=== PATIENT | female | born 1990 | race Caucasian/White ===

== ENCOUNTER 2023-05-14 08:16 | Outpatient (CLI) | payer OTHER, SELFPAY | END 2023-05-14 08:17 | disposition home or self-care (01) | LOC: NFLDREF 05-16 12:57 | PROVIDERS: Visit Provider Obstetrics & Gynecology | DX: N80.9 Endometriosis, unspecified (principal); R10.2 Pelvic and perineal pain; R39.9 Unspecified symptoms and signs involving the genitourinary system; G89.29 Other chronic pain | CPT/HCPCS: 80053; 87086 ==

== ENCOUNTER 2023-05-21 15:49 | Outpatient (CLI) | payer OTHER, SELFPAY | END 2023-05-21 15:50 | disposition home or self-care (01) | PROVIDERS: PCP Nurse Practitioner Family; Visit Provider Nurse Practitioner Family | DX: Z00.00 Encounter for general adult medical examination without abnormal findings (principal); E11.9 Type 2 diabetes mellitus without complications; R74.8 Abnormal levels of other serum enzymes; R10.12 Left upper quadrant pain | CPT/HCPCS: 82150; 83690 ==

== ENCOUNTER 2023-06-22 15:44 | Outpatient (CLI) | payer OTHER, SELFPAY ==
--- NOTE | 2023-06-22 16:00 | CRLHL7_ITS ---
For Patients: As a result of the Century Cures Act, medical imaging exams and procedure reports are released immediately into your electronic medical record. You may view this report before your referring provider. If you have questions, please contact your health care provider. CLINICAL HISTORY: PELVIC AND PERINEAL PAIN TECHNIQUE: 2D de los santos scale ultrasound. In addition color Doppler and spectral Doppler analysis was performed of the pelvis using a transabdominal and transvaginal approach. Comparison MRI 01/18/2023 FINDINGS: On transvaginal imaging, the myometrium has a normal uniform echotexture. The uterus measures 8.3 x 4.3 x 5.5 cm. The endometrial lining measures 9 mm in thickness. The right ovary measures 3.4 x 3.8 x 3.9 cm in size and the left ovary measures 6.5 x 4.6 x 4.1 cm. The ovaries demonstrate normal arterial and venous blood flow on color Doppler and spectral Doppler analysis. There is a near completely anechoic left ovarian cyst measuring 4.7 x 3.3 x 3.6 cm, corresponding to the T2 hyperintense cyst on MRI. A faint curvilinear thin septation is again noted. There is also a circumscribed anechoic right ovarian cyst measuring 2.5 x 3.2 x 3.2 cm, new from the prior study. The adnexal lesion be low and anterior to the left ovary is not appreciated on ultrasound. IMPRESSION: The previously noted T1 isointense left adnexal mass with incomplete fat suppression is not visualized on sonogram. Stable benign left ovarian cyst containing a thin peripheral internal septation measuring 4.7 cm. There is a new benign simple right ovarian cyst measuring 3.2 cm. No ovarian torsion or excess pelvic free fluid. Dictated by Cj Melgar MD @ 06/25/2023 9:03:11 AM (Electronically Signed)
== END 2023-06-22 15:45 | disposition home or self-care (01) ==
LOC: US 15:45
PROVIDERS: PCP Nurse Practitioner Family; Visit Provider Obstetrics & Gynecology
DX: R10.2 Pelvic and perineal pain (principal); N83.202 Unspecified ovarian cyst, left side; N83.201 Unspecified ovarian cyst, right side; G89.29 Other chronic pain
CPT/HCPCS: 76830; 76856; 93976

== ENCOUNTER 2023-06-26 15:20 | Outpatient (CLI) | payer OTHER, SELFPAY | END 2023-06-26 15:21 | disposition home or self-care (01) | PROVIDERS: PCP Nurse Practitioner Family; Visit Provider Obstetrics & Gynecology | DX: R74.8 Abnormal levels of other serum enzymes (principal); E11.9 Type 2 diabetes mellitus without complications; N89.8 Other specified noninflammatory disorders of vagina; R07.9 Chest pain, unspecified | CPT/HCPCS: 80053; 80061; 82043; 82570; 84443 ==

== ENCOUNTER 2023-06-29 08:49 | Outpatient (CLI) | payer OTHER, SELFPAY | END 2023-06-29 08:50 | disposition home or self-care (01) | LOC: KYNREF 08:51 | PROVIDERS: PCP Nurse Practitioner Family; Visit Provider Nurse Practitioner Family | DX: R74.8 Abnormal levels of other serum enzymes (principal); R07.89 Other chest pain | CPT/HCPCS: 84484 ==

== ENCOUNTER 2023-07-13 07:17 | Outpatient (CLI) | payer OTHER, SELFPAY ==
--- NOTE | 2023-07-13 07:15 | CRLHL7_ITS ---
For Patients: As a result of the Century Cures Act, medical imaging exams and procedure reports are released immediately into your electronic medical record. You may view this report before your referring provider. If you have questions, please contact your health care provider. INDICATION: Elevated liver enzymes. COMPARISON: None available. TECHNIQUE: Ultrasound examination of the right upper quadrant was performed. FINDINGS: The gallbladder is absent consistent with the history of cholecystectomy. The common bile duct is top normal in caliber at 8 mm. The pancreatic head and body were examined, and these are normal in appearance. The abdominal aorta and visualized portions of the inferior vena cava are normal in appearance. The liver shows no sign of mass or contour abnormality, and there is no sign of ascites. There is antegrade flow in the main portal vein. There is increased hepatic echogenicity consistent with fatty infiltration of the liver. The right kidney is unremarkable. IMPRESSION: Fatty infiltration of the liver with no sign of any mass. Common bile duct top normal in caliber. Absence of the gallbladder consistent with cholecystectomy. Dictated by Josh Willis MD @ 07/17/2023 12:02:08 PM (Electronically Signed)
== END 2023-07-13 07:18 | disposition home or self-care (01) ==
LOC: US 07:18
PROVIDERS: PCP Nurse Practitioner Family; Visit Provider Nurse Practitioner Family
DX: R74.8 Abnormal levels of other serum enzymes (principal); K76.0 Fatty (change of) liver, not elsewhere classified
CPT/HCPCS: 76705

== ENCOUNTER 2024-05-01 13:51 | Outpatient (CLI) | payer MEDICAID, SELFPAY ==
--- OUTSIDE RECORDS SUMMARY | 2024-05-01 13:54 | XMS_ITS | Data Portability ---
Author Organization LM - [facility] Address [address] [place] [address] [place] [address] Assessment No assessment recorded. Plan of Treatment Reminders Order Date Submit Date Provider Last Modified By Organization Details Last Modified Time Details Appointments None recorded. Lab CBC w/ diff 2019 [facility], [address] [place] [address], [phone], 0 14:11:12 HbA1c (hemoglobi n A1c), blood 2019 [facility], [address] [place] [address], [address], 0 17:33:09 TSH, serum, reflex free T4 2019 [facility], [address] [place] [address], [address], 0 14:11:12 pap, LB + reflex to HR HPV if ASC-U 2019 [facility], [address] [place] [address], [address], 0 15:57:24 CT + NG + TV, DNA, urine/swab - vaginal swab 2019 [facility], [address] [place] [address], [address], 0 10:46:21 wet mount, vaginal 2019 [place] [facility], [address] [place], [place] [address], [address], 0 15:31:48 urinalysis , dipstick, auto 2021 [email or web address] [place] [facility], [address] [place] [address] [place], [address], 2 10:53:40 urinalysis complete, reflex culture 2021 [facility] [address] [place] [address] [place], [address], 2 16:06:10 Referral care coordinati on referral 2019 [email or web address] Not available 0 18:20:36 medical case worker/ca re coordinato r referral - Pt has agreed to follow through with advocacy appt to be reconsider ed for [place] sure. She thinks she has the right paperwork 2021 [email or web address] Not available 2 10:50:19 mental health clinic referral 2021 [email or web address] Not available 2 16:39:37 Procedures None recorded. Surgeries None recorded. Imaging US, pelvis, complete 2019 LILIA[place] Not available 0 10:45:26 Medication Orders naproxen 500 mg tablet,del ayed release 2019 [facility] [place], [address], [place], [address], 1 11:45:11 omeprazole 20 mg capsule,de layed release 2020 021 [facility] [place], [address], [place], [address], 11:56:19 fluconazol e 150 mg tablet 2021 [facility] Julianne [place], [address], [place], [address], 14:22:43 Fiber (psyllium husk-sugar ) 3.4 gram/7 gram oral powder 2021 [facility] Eugeniar [place], [address], [place], [address], 12:18:28 sulfametho xazole 800 mg-trimeth oprim 160 mg tablet 2021 [facility] Julianne Mac, [address], [place], [address], 12:17:54 Patient TargetsNo targets recorded. Patient InstructionsNo instructions recorded. Reason for Referral Care Coordination Referral f or Dysmenorrhea APC application OR insurance navigator if eligible - needs to see gynecology pending APC approval Referring Physician: [facility], Encounter Date: 05/26/2020 Screening Specialist And Gynecologis t Referral for Complex cyst of uterine adnexa Left adnexal cyst increasing in size. Chronic pelvic pain. Referring Physician: [facility], Encounter Date: 06/09/2020 Demand Planner/care Coordinato r Referral for Chronic pelvic pain of female Pt has agreed to follow through with advocacy appt to be reconsidered for [place] sure. She thinks she has the right paperwork Referring Physician: [facility]yada [facility], Encounter Date: 08/01/2022 Mental Health Clinic Referra l for Difficulty coping Referring Physician: Zayda [facility], Encounter Date: 08/01/2022 Results Created Date Observation Date Name Description Value Unit Range Abnormal Flag Note LastModifiedBy Organization Detail LastModifiedTime 06/02/20 06/02/2020 TSH, serum , refle x free T4 WBC 8.9 Not Available Not Availa ble 06/03/2020 14:11:12 06/02/20 20 06/02/2020 TSH, serum , refle x free T4 HGB 13.0 Not Available Not Availa ble 06/03/2020 14:11:12 06/02/20 20 06/02/2020 TSH, serum , refle x free T4 platelet count 286 Not Available Not Available 05/14 14:11:12 06/02/20 20 06/02/2020 TSH, serum , refle x free T4 TSH 1.20 Not Available Not Availa ble 06/03/2020 14:11:12 06/02/20 20 06/02/2020 CBC w/ diff WBC 8.9 Not Available Not Availa ble 06/03/2020 13:18:28 06/02/20 20 06/02/2020 CBC w/ diff HGB 13.0 Not Available Not Availa ble 06/03/2020 13:18:28 06/02/20 20 06/02/2020 CBC w/ diff platelet count 286 Not Available Not Available 05/14 13:18:28 06/02/20 20 06/02/2020 CBC w/ diff TSH 1.20 Not Available Not Availa ble 06/03/2020 13:18:28 06/02/20 20 06/02/2020 HbA1c (hemo globi n A1c), blood A1C 5.8 % <=6.4 Not Available [place] [facility] [address] [place], [address], 06/04/2020 09:10:37 06/07/2006/03/2020 US, pelvi s, compl ete No observ ation record ed. Not Available 2019 17:21:56 Result Notes None recorded. Problems Name Problem SNOMED Code Status Onset Date Resolution Date Notes Provider Name and Address Organization Details Recorded Time Hemorrhoids 27936287 Active 2021 for 3 years ZAYDA SWANSON, ANP-BC [address] [facility] [place], [address], [facility] [facility] 2 17:12:16 Endometriosis of uterus 91494241 Active 2019 Lydia Hua NP [address] [place], [address], [place] [employer] [facility] 0 15:55:08 Dysmenorrhea 790861972 Active 2019 [facility] [address] [place] [address], [address], [facility] 2 17:13:05 Migraine with aura 7846078 Active 2019 [place] [address] [place] [address], [address], [place] [employer] [facility] 0 16:14:23 Cyst of ovary 14081337 Active 2019 YVON PINEDA [address] [place] [address], [address], [facility] 2 17:12:21 Obesity 354725094 Active 2019 [place] [address] [place] [address], [address], [facility] 0 16:14:36 Problem Notes None recorded. Procedures Surgical History Date Name Laterality Status Provider Name and Address Organization Details Recorded Time 05/15/20 16 Date of Last [place] [address] [place] [address], [address], [facility] [employer] [employer] 05/26/2020 15:58:27 [place] [address] [place] [address], [address], [place] [facility] 05/26/2020 15:57:30 Imaging Results Imaging Date Name Status LastModified by Organiz ation Details LastModified Time 06/03/2020 US, pelvis, complete completed Information not available 06/09/2020 17:21:56 Procedure Notes None recorded. Medical Equipment None Reported. Allergies Allergen ID Allergen Name Allergen Category Reaction Reaction Severity Criticality Documentation Date Start Date Code Code System Note Provider Name and Address Organization Details Recorded Time 242 Product containin g estrogen receptor agonist (product) medicatio n Not available Not available Not available 05/26/2020 34241 003 SNOMED contr aindi cated due to migra ine with katharina Hua, OUTPATIENT CASE MANAGER [address] [place], [address], [facility] - [facility] 0 15:54:19 Medications Name Sig Start Date Stop Date Status Note LastModified by Organization Details LastModified Time fluconazole 150 mg tablet TAKE 1 TABLET BY MOUTH DAILY FOR 1 DAY active Not Available Not Available No t Available prednisone 20 mg tablet TAKE 2 TABLET BY MOUTH ONCE DAILY WITH A MEAL FOR 5 DAYS. active Not Available Not Available No t Available sulfamethox azole 800 mg-trimetho prim 160 mg tablet TAKE 1 TABLET BY MOUTH TWO TIMES A DAY active Not Available Not Available No t Available meloxicam 7.5 mg tablet TAKE 1 TABLET BY MOUTH ONCE DAILY FOR PERIOD PAIN active Not Available Not Available No t Available naproxen 500 mg tablet,kendra yed release Take 1 tablet twice a day by oral route as needed. 02/23 completed Not Available Not Available Not Available ibuprofen 200 mg tablet Take 1 tablet every 6 hours by oral route. 02/23 completed Not Available Not Available Not Available omeprazole 20 mg capsule,del ayed release TAKE 1 CAPSULE BY MOUTH ONCE DAILY active Not Available Not Available No t Available cefdinir 300 mg capsule TAKE 1 CAPSULE BY MOUTH TWICE DAILY BEFORE BREAKFAST AND BEFORE SUPPER FOR 7 DAYS active Not Available Not Available No t Available Natural Fiber Laxative (sugar) oral powder TAKE 1 TEASPOONF UL MIXED IN 8OZ. OF FLUID AND DRINK BY MOUTH EVERY DAY active Not Available Not Available No t Available escitalopra m 10 mg tablet TAKE 1 TABLET BY MOUTH ONCE DAILY active Not Available Not Available No t Available Nexplanon 2017 active Not Available Not Available Not Avai lable Fiber (psyllium husk-sugar) 3.4 gram/7 gram oral powder Take 1 tsp every day by oral route. 2021 active Not Available Not Available Not Avai lable Vitals Date Recorded Heart rate Body height Body mass index (BMI) Body weight Systolic blood pressure Diastolic blood pressure Provider Name and Address Organization Details Last Updated DateTime 0 73 /min 162.56 cm 35.2 kg/m2 27269.4 4 g 114 mm[Hg] 78 mm[Hg] Lydia Hua, KELSI [address] [place], [address], [facility] [employer] [facility] 0 16:05:12 Date Recorded Body height Body mass index (BMI) Body weight Heart rate Systolic blood pressure Diastolic blood pressure Provider Name and Address Organization Details Last Updated DateTime 0 162.56 cm 34.3 kg/m2 29304.4 7 g 69 /min 124 mm[Hg] 70 mm[Hg] Lydia Hua, KELSI [address] [place], [address], [facility] [employer] [facility] 0 14:19:35 Date Recorded Body height Provider Name an d Address Organization Details Last Updated DateTime 02/23/2021 162.56 cm Lydia Hua, KELSI [address] [place], [address], [facility] [employer] [facility] 02/23/2021 11:45:15 Social History Question Answer Notes LastModified by Organizat ion Details LastModified Time Tobacco Smoking Status Never Smoker Not Available [employer] 06/15/2020 03:52:54 What Is Your Level Of Alcohol Consumption? None [id number] Information not available 06/15/2020 Are You Currently Employed? Yes [id number] Information not available 06/15/2020 What Is Your Occupation? [employer] [id number] Information not available 06/15/2020 Live Alone Or With Others? With Others Lives With Kids And Information not available 05/26/2020 How Many Children Do You Have? 5 [id number] Information not available 06/15/2020 Are You Sexually Active? No [id number] Information not available 06/15/2020 Sex: Unknown Functional Status Question Answer Note LastModified by Organization D etails LastModified Time Are you able to care for yourself? Yes [id number] Information n ot available 06/15/2020 Mental Status None recorded. Family History Relationship Description Onset Age of this Age Resolved Age Notes LastModified by Organization Details LastModified Time Mother Prediabetes Not availa ble 05/26/2020 15:55:46 Maternal Grandfather Squamous cell carcinoma Not available 2019 15:56:03 Medical History No medical history recorded. Gynecological History Statement/Question Response Abnormal Pap Y Flow Heavy Date of LMP 08/01/2022 On BCP's at Conception? N STIs/STDs N Duration of Flow (days) 14 Current Control Method Implant Frequency of Cycle (Q days) Sexually Active? N Menses Monthly N Date of Last Pap Smear 05/15/2016 Sexual Problems? Y LMP Definite Obstetrics History GPAL:G 5 P 0 0 0 5 Type Value Living 5 Total 5 Past Encounters Encounter ID Performer Location Encounter Start Date Encounter Closed Date Diagnosis/Indication Diagnosis SNOMED-CT Code Diagnosis ICD10 Code [id number] Lydia Hua NP [facility] [address] [place] [address] 05/26/2020 15:32:39 05/26/2020 16:37:44 Dysmenorrhea 987656211 N94.6 Body mass index 30+ - obesity 377054946 Z68.35 Abnormal c ervical Papanicolaou smear 707116828 R87.619 Endometrio sis of pelvis 78823652 N80.3 [id number] Lydia Hua NP [facility] [address] [place] [address] 06/02/2020 14:01:00 06/02/2020 16:06:52 Dysmenorrhea 675804906 N94.6 Abnormal c ervical Papanicolaou smear 458794796 R87.619 [id number] Lydia Hua NP [facility] [address] [place] [address] 02/23/2021 11:10:32 02/23/2021 16:27:50 Nonulcer dyspepsia 9222382 K30 Dysmenorrhea 970140817 N 94.6 [id number] ZAYDA SWANSON, ANP-BC [facility] [address] [facility] [address] [place] [address] 07/27/2022 14:10:00 07/28/2022 10:49:27 Candidiasis of vagina 65759968 B37.31 Dysuria 30911670 R30.0 Chronic pe lvic pain of female 064616721 R10.2 [id number] RACHEL PINEDA-[facility] [address] [facility] [place] [address] 08/01/2022 16:49:00 08/01/2022 17:36:23 Chronic pelvic pain of female 277394841 R10.2 Candidiasis of vagina 72 342457 B37.31 Acute urin anabelle tract infection 529659358 N39.0 Constipation 72768431 K5 9.00 Difficulty coping 561929 00 Z73.89 Health Concerns Section Related Observation LastModified by Organization Detai ls LastModified Time None Recorded Concern Status LastModified by Organization Details LastModified Time None Recorded Advance Directives Directive None Recorded Payers Encounter Date Sequence Insurance Name Policy Number Policy Mueller Covered Member ID Mueller Member ID Guarantor Name 05/26/2020 SLIDING FEE SCHEDULE - DISCOUNT Annydaysy Pisano 06/02/2020 SLIDING FEE SCHEDULE - DISCOUNT Annydaysy Pisano 02/23/2021 SLIDING FEE SCHEDULE - DISCOUNT Annydaysy Pisano 07/27/2022 SLIDING FEE SCHEDULE - DISCOUNT Annydaysy Pisano 08/01/2022 SLIDING FEE SCHEDULE - DISCOUNT Annydaysy Pisano Notes Date Note Type Note Provider Name and Address Organization Details Recorded Time 05/26/2020 text/html HPI Notes: 29 y. o. F presents due to pelvic pain with menses Reports always having painful periods Diagnosed with endometriosis 2012 at [facility], but no definitive surgical diagnosis at that time Patient has tried multiple contraceptive treatments, but unable to take estrogen-containing methods due to migraines with aura Has used Nexplanon x 2.5 years with good affect up until a few months ago when her painful/heavy periods returned Gained weight with Depo, IUD exacerbated pain Reports that now her periods are long, painful, and heavy Additionally, she reports constipation, dizziness with severe pain, pain with sex, and that the pain radiates down the front of her thighs Uses Ibuprofen, which does not help the pain very much Denies vaginal discharge, itching, odor, irritation, risk of STIs, fever, chills Lydia Hua, KELSI [address] [place], [address], [place] [facility] 05/26/2020 17:22:34 06/02/2020 text/html HPI Notes: 29 y. o. F presents in follow up. Seen 1 week ago for longstanding history of dysmenorrhea and previous diagnosis of endometriosis. Unable to perform exam last week. Presents for exam. Reports previous pap smear 2016 abnormal. Unable to find exact result. Plan to repeat today. No changes since last week Nexplanon for contraception Bad pain yesterday and beginning to spot Lydia Hua NP [address] [place], [address], [facility] [employer] [facility] 06/02/2020 15:33:15 02/23/2021 text/html HPI Notes: 30 y. o. F Evaluated via phone due to pain in her lower rib and middle of my stomach, early satiety with 15-lb weight loss, nausea, vomiting x 2, dizziness starting 3 weeks ago These symptoms only occur after eating Bowel movements have been normal Denies blood in vomit or stool, dysuria, fever, chills Continues with previously-evaluate d dysmenorrhea but worsening now. Previously she was referred to loom winder tender and surgical consult but preferred to apply for insurance before pursuing this referral. Would like to apply for insurance again and see loom winder tender. Lydia Hua NP [address] [place], [address], [facility] [employer] [facility] 02/23/2021 12:36:44 07/27/2022 text/html HPI Notes: Pt called on phone d/t inability to see in-person. Ethiopian-speaking. She notes thicker, white curd-like vaginal discharge, increased over usual with itching and burnign. Not currently having sex, but when she last did, it was painful. Has had both urine and yeast infections before, but it has been a long time. +intermenstrual spotting, pink urine with associated odor +sig menstrual cramps and pelvic pain for years R>L Denies currently vaginal lesions, but sometimes will note smoothe, flesh-colored lesions. Pelvic u/s showed Left adnexal cyst growth and thickend wall 06/04/20. Surgical consult recommended. She denies ever seeing Dr. Thomason, [facility]. She did see a [facility] provider 12/2021, but I am unable to view notes. Diagnosis was noted to be endometriosis, but in 2019 endometrium was unremarkable at 2mm. It is possible that there has been a change not reflected in 2020 imaging. She says she was told at Last [facility] visit that nothing could be done other than meds, which have been unhelpful. Meloxicam and nearly ever bc method has been tried (oral, patch, mirena IUD). Nexplanon was initially helpful, but not currently. 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 She RACHEL PINEDA- [address] [place], [address], [place] [employer] [facility] 07/27/2022 14:15:17 08/01/2022 text/html HPI Notes: Ethiopian-speaking, accompanied by . Pt presents for folow-up of vaginal c/o, dysuria, and pelvic pain. Vaginal sx resolved with fluconazole ocmpletely. UC showed >50,000 E coli. Awaiting records from [facility] consult. No sx of complicated UTI such as feverl, flank pain, or chills. No recent antibiotic use. Also notes rectal pain. Dull pain. With period. +constipation and alternates with diarrhea. JARVIS PINEDA [address] [place], [address], [place] [employer] [facility] 08/01/2022 17:40:15 OBGyn Episode No OBEpisode recorded.
--- OUTSIDE RECORDS SUMMARY | 2024-05-01 13:54 | XMS_ITS | Clinical Summary ---
Author Organization [facility] Address [place], [place] [address] Care Team Providers Care Front Edger Name Role Phone Pcp, No Primary Care Provider UnavailEliud Flowers Unavailable [phone] Nonstaff, Doctor Unavailable Unavailable Allergies No known active allergies Medications Medication Sig Dispensed Refills Start Date End Date Status ibuprofen (ADVIL; MOTRIN) 200 mg tablet Take 200 mg by mouth every 6 hours if needed for Pain. Active alcohol swabs Use as needed for diabetes control 11/17/2022 Active blood glucose ctl high,nml,low soln Glucose control solution provides an easy way to ensure accurate blood glucose testing. 11/17/2022 Active Blood-Glucose Meter Test as directed for diabetes control. 11/17/2022 Active metFORMIN (GLUCOPHAGE XR) 500 mg Extended-Release tablet Take 1,000 mg by mouth two times daily. 02/12/2024 Active glipiZIDE (GLUCOTROL) 5 mg tablet Take 5 mg by mouth two times daily. Active Ventolin HFA 90 mcg/actuation inhaler Inhale 1-2 Puffs by mouth every 6 hours if needed. 02/12/2024 Active escitalopram oxalate (LEXAPRO) 10 mg tabletIndications:Ma tay depressive disorder, single episode, moderate (HC) Take 1 Tablet (10 mg) by mouth once daily in the morning. 30 Tablet 02/28/2024 Active traZODone (DESYREL) 50 mg tabletIndications:Ma tay depressive disorder, single episode, moderate (HC) Take 1 Tablet (50 mg) by mouth at bedtime. 31 Tablet 02/27/2024 Active Active Problems Problem Noted Date Diagnosed Date Major depressive disorder, single episode, moder ate 02/26/2024 Asthma 02/25/2024 Type 2 diabetes mellitus, wi thout long-term current use of insulin 02/25/2024 Depression 02/25/2024 Suicidal ideation 02/25/2024 Endometriosis 12/08/2022 35 weeks gestation of 10/26/2016 Obesity (BMI 30.0-34.9) 10/26/2016 Gastroesophageal reflux disease without esophagi tis 10/26/2016 Grand multiparity 10/26/2016 Constipation 12/02/2015 Myopia of both eyes 08/18/2015 Regular astigmatism of both eyes 08/18/2015 Estimated Date of Delivery Comme nts Yes 12/08/2024 Resolved Problems Problem Noted Date Diagnosed Date Resolved Date 37 weeks gestation of 12/02/2015 10/26/2016 Encounters Date Type Department Care Team Description 04/28/2024 5:21 AM CDT - 04/28/2024 8:12 AM CDT Emergency [address] [address] Anthony Suero MD Peterson, Christopher Roy, MD Abdominal pain affecting (Primary Dx); Subchorionic hematoma in first trimester, single or unspecified fetus; Ovarian cyst affecting in first trimester, antepartum Discharge Disposition: Home Self Care 04/28/2024 Travel 02/25/2024 5:48 PM CDT - 02/27/2024 4:00 PM CDT Hospital Encounter [address] [address] jC Senior MD Major depressive disorder, single episode, moderate (HC) (Primary Dx) Discharge Disposition: Home Self Care 02/25/2024 12:22 AM CDT - 02/25/2024 5:42 PM CDT Emergency [address] [address] Brandon Dias MD Swenson, Nathan Dean, MD Depression, unspecified depression type (Primary Dx); Suicidal ideation Discharge Disposition: Short Term/PPS Hosp 02/25/2024 Travel from Last 3 Months Immunizations Name Administration Dates Next Due COVID-19 vaccine (ICEXBio NTech 30mcg/0.3mL) PF, MDV 09/14/2021,07/20/2021 DTaP 03/21/2000,09/21/1999,08/18/1999 Hepatitis B (Peds) 03/21/2000,09/21/1999, 000 Human Papilloma Virus Vaccine 12/03/2014 ,06/05/2014,01/08/2013,2007 Influenza Virus, Unspecified 07/28/2016, 07/14/2015,06/05/2014,2012,06/21/2010 Influenza, IIV3 (Age >=3 years) 08/16/2012,08/26 Influenza, IIV4 06/10/2019,07/28/2016 Influenza, IIV4 (=>6mos) MDV 05/27/2020,07/14/20 15 MMR 09/21/1999,08/18/1999 Polio Virus, Unspecified 03/21/2000,09/21/1999,0 08/18/1999 Tdap 07/28/2016, 6,08/12/2014,2007 Tetanus Toxoid 01/30/2008 Tuberculin (PPD) 08/12/2019 Varicella Vaccine 12/03/2015 Family History Medical History Relation Name Comments No Known Problems Daughter 1 No Known Problems Daughter 2 No Known Problems Daughter 3 Migraines Mother No Known Problems Son 1 No Known Problems Son 2 Relation Name Status Comments Daughter 1 Alive Daughter 2 Alive Daughter 3 Alive Mother Alive Son 1 Alive Son 2 Alive Social History Tobacco Use Types Packs/Day Years Used Date Smoking Tobacco: Never Smokeless Tobacco: Never Tobacco Cessation:Counseling Given: Yes Alcohol Use Standard Drinks/Week Comments Yes 0 (1 standard drink = 0.6 oz pure alcohol) quart of tequila every other weekend PHQ-2 Answer Date Recorded PHQ-2 TOTAL SCORE 1 02/27/2024 Social Connections Answer Date Recorded Frequency of Communication with Friends and Fami ly 4 02/25/2024 Alcohol Use Answer Date Recorded How often do you have a drink containing alcohol ? 2 02/25/2024 How many drinks containing a lcohol do you have on a typical day when you are drinking? 4 02/25/2024 How often do you have five or more drinks on one occasion? 3 02/25/2024 Financial Resource Strain Answer Date R ecorded Difficulty of Paying Living Expenses 2 02/25/2024 Difficulty of Paying Living Expenses 1 02/25/2024 Food Insecurity Answer Date Recorded Worried About Running Out of Food in the Last Ye ar 2 02/25/2024 Transportation Needs Answer Date Record ed Lack of Transportation (Medical) 1 02/25/2024 Housing Stability Answer Date Recorded Unable to Pay for Housing in the Last Year 1 02/25/2024 Estimated Date of Delivery Comme nts Yes 12/08/2024 Sex and Gender Information Value Date Recorded Sex Assigned at Not on file Gender Identity Not on file Sexual Orientation Not on file Obstetrics History Para Term AB IAB SAB Ectopic Multiple Livin g Live Births 6 5 4 1 0 0 0 0 0 5 5 Date Outcome GA Total Labor Labor//3rd Weight Sex Type Anes PTL Vicky A1 A5 Name Clin 2007 Term 40w 0d 3.69 kg (8 lb 2 oz) F Vag N Livin g 2010 Term 40w 0d 3.23 kg (7 lb 2 oz) F Vag N Livin g 2012 Term 39w 0d 3.66 kg (8 lb 1 oz) M Vag N Livin g 2015 Term 37w 5d 3.32 kg (7 lb 5 oz) M Vag None Livin g 9 9 Complications:None Delivery Location:[facility] 2016 35w 6d 2.92 kg (6 lb 7 oz) F Vag None Livin g 9 10 GORDON BARRY ,BG ALVERTO Coyle Delivery Location:[facility] [place] Current Last Filed Vital Signs Vital Sign Reading Time Taken Comments Blood Pressure 103/65 04/28/2024 6:06 AM CDT Pulse 52 04/28/2024 6:06 AM CDT Temperature 36.5 ??C (97.7 ??F) 04/28/2024 5:21 AM CD T Respiratory Rate 20 04/28/2024 5:21 AM CDT Oxygen Saturation 97% 04/28/2024 6:06 AM CDT Inhaled Oxygen Concentration - - Weight 86.2 kg (190 lb) 04/28/2024 5:21 AM CDT Height 165.1 cm (5' 5) 04/28/2024 5:21 AM CDT Body Mass Index 31.62 04/28/2024 5:21 AM CDT Plan of Treatment Health Maintenance Due Date Last Done Comments Pneumococcal series for age 6-64 (1 of 2 - PCV) 1996 HIV for age 15-65 2005 Hepatitis C screening for ag e 18-79 2008 BMI (ht and wt on same day) for age 18+ 09/18/2017 09/18/2016 Pap test for age 21-65 06/02/2023 06/02/2020, 2019 COVID-19 vaccine series ( season) 2024 09/14/2021, 07/20/2021 Influenza for age 9-49 04/13/2024 , 06/10/2019, 07/28/2016, Additional history exists Depression screening for age 12+ 02/26/2025 02/27/20 24, 02/25/2024 Tetanus booster 07/28/2026 07/28/2016, 030 04/2016, 08/12/2014, Additional history exists Tdap Completed 07/28/2016, 03/0 04/2016, 08/12/2014, Additional history exists RSV vaccine for adults or (No Doses Required) Completed Procedures Procedure Name Priority Date/Time Associated Diagnosis Comments SCAN-RADIOLOGY REPORT 04/28/2024 7:50 AM CDT UA W/ SEDIMENT EXAM REFLEXED PER CRITERIA STAT 04/28/2024 6:25 AM CDT TYPE & SCREEN STAT 04/28/2024 6:15 AM CDT HEPATIC FUNCTION PANEL SEGUN 04/28/2024 6:15 AM CDT CBC WITH AUTO DIFFERENTIAL STAT 04/28/2024 6:15 AM CDT BASIC METABOLIC PANEL STAT 04/28/2024 6:15 AM CDT HCG BETA QUANT, STAT 04/28/2024 6:15 AM CDT CBC WITH AUTO DIFFERENTIAL STAT 04/28/2024 6:15 AM CDT BEDSIDE US STUDY ARCHIVE Routine 04/28/2024 5:34 AM CDT ED ULTRASOUND TA Routine 04/28/2024 5:34 AM CDT GLUCOSE METER Routine 02/27/2024 12:39 PM CDT GLUCOSE METER Routine 02/27/2024 11:25 AM CDT GLUCOSE METER Routine 02/27/2024 6:58 AM CDT GLUCOSE METER Routine 02/26/2024 9:37 PM CDT GLUCOSE METER Routine 02/26/2024 4:59 PM CDT GLUCOSE METER Routine 02/26/2024 4:39 PM CDT GLUCOSE METER Routine 02/26/2024 11:33 AM CDT GLUCOSE METER Routine 02/26/2024 7:27 AM CDT GLUCOSE METER Routine 02/25/2024 9:29 PM CDT [employer] THIN PREP PAP DIAGNOSTIC IMAGED Routine 06/02/2020 2:36 PM CDT from Last 3 Months or Most Recently Relevant to Health Maintenance Results * SCAN-RADIOLOGY REPORT (04/28/2024 7:50 AM CDT) Anatomical Region Laterality Modality Other Scanner OTHER * (ABNORMAL) UA W/ SEDIMENT EXAM REFLEXED PER CRITERIA (04/28/2024 6:25 AM CDT) COLOR Yellow Yellow Color 04/28/2024 6:48 AM CDT [facility] CLARITY Clear Clear Clarity 04/28/2024 6:48 AM CDT [facility] SPECIFIC GRAVITY,URINE >=1.030(A) 1.010, 1.015, 1.020, 1.025 04/28/2024 6:48 AM [facility] PH,URINE 6.0 6.0, 7.0, 8.0, 5.5, 6.5, 7.5, 8.5 04/28/2024 6:48 AM [facility] UROBILINOGEN, QUALITATIVE Normal Normal EU/dl 04/28/2024 6:48 AM [facility] PROTEIN, URINE Negative Negative mg/dL 04/28/2024 6:48 AM [facility] GLUCOSE, URINE Negative Negative mg/dL 04/28/2024 6:48 AM [facility] KETONES,URINE Negative Negative mg/dL 04/28/2024 6:48 AM [facility] BILIRUBIN,URI NE Negative Negative 04/28/2024 6:48 AM [facility] OCCULT BLOOD,URINE Negative Negative 04/28/2024 6:48 AM [facility] NITRITE Negative Negative 04/28/2024 6:48 AM [facility] LEUKOCYTE ESTERASE Negative Negative 04/28/2024 6:48 AM [facility] Urine URINE SPECIMEN / Unknown Non-Blood / Unknown 04/28/2024 6:25 AM CDT 04/28/2024 6:45 AM T Anthony Suero MD URINE Performing Organization Address City/State/[facility] Co de Phone Number [facility] [address] [phone] * (ABNORMAL) CBC WITH AUTO DIFFERENTIAL (04/28/2024 6:15 AM CDT) WHITE BLOOD COUNT 8.2 4.5 - 11.0 thou/cu mm 04/28/2024 6:33 AM [facility] RED BLOOD COUNT 4.05 4.00 - 5.20 mil/cu mm 04/28/2024 6:33 AM [facility] HEMOGLOBIN 11.6(L) 12.0 - 16.0 g/dL 04/28/2024 6:33 AM [facility] HEMATOCRIT 36.6 33.0 - 51.0 % 04/28/2024 6:33 AM [facility] MCV 90 80 - 100 fL 04/28/2024 6:33 AM [facility] MCH 28.6 26.0 - 34.0 pg 04/28/2024 6:33 AM [facility] MCHC 31.7(L) 32.0 - 36.0 g/dL 04/28/2024 6:33 AM [facility] RDW 13.0 11.5 - 15.5 % 04/28/2024 6:33 AM [facility] PLATELET COUNT 235 140 - 440 thou/cu mm 04/28/2024 6:33 AM [facility] MPV 10.8 6.5 - 11.0 fL 04/28/2024 6:33 AM [facility] % NEUT 69.6 % 04/28/2024 6:33 AM [facility] % LYMPH 23.5 % 04/28/2024 6:33 AM [facility] % MONO 5.2 % 04/28/2024 6:33 AM [facility] % EOS 1.6 % 04/28/2024 6:33 AM [facility] % BASO 0.1 % 04/28/2024 6:33 AM [facility] ABSOLUTE NEUTROPHILS 5.7 1.7 - 7.0 thou/cu mm 04/28/2024 6:33 AM [facility] ABSOLUTE LYMPHOCYTES 1.9 0.9 - 2.9 thou/cu mm 04/28/2024 6:33 AM [facility] ABSOLUTE MONOCYTES 0.4 <0.9 thou/cu mm 04/28/2024 6:33 AM [facility] ABSOLUTE EOSINOPHILS 0.1 <0.5 thou/cu mm 04/28/2024 6:33 AM [facility] ABSOLUTE BASOPHILS 0.0 <0.3 thou/cu mm 04/28/2024 6:33 AM [facility] Blood BLOOD SPECIMEN / Unknown Butterfly / Unknown 04/28/2024 6:15 AM CDT 04/28/2024 6:23 AM CDT Anthony Suero MD HEMATOLOGY Performing Organization Address [facility] Co de Phone Number [facility] [address] [place] [phone] * TYPE AND SCREEN ONLY (04/28/2024 6:15 AM CDT) ABORH O Rh Positive 04/28/2024 7:09 AM CDT [facility] ANTIBODY SCREEN Negative Negative 04/28/2024 7:09 AM CDT [facility] SPECIMEN EXPIRATION DATE/TIME 05/01/24 23:59 04/28/2024 7:09 AM CDT [facility] Blood BLOOD SPECIMEN / Unknown Butterfly / Unknown 04/28/2024 6:15 AM CDT 04/28/2024 6:23 AM CDT Anthony Suero MD BLOOD BANK Performing Organization Address [facility] Co de Phone Number [facility] [address] [phone] * HCG BETA QUANT, (04/28/2024 6:15 AM CDT) HCG BETA QUANT,PREGNANC Y 31,505 mIU/mL 04/28/2024 7:17 AM CDT [facility] Blood BLOOD SPECIMEN / Unknown Butterfly / Unknown 04/28/2024 6:15 AM CDT 04/28/2024 6:23 AM CDT [facility] - 04/28/2024 7:17 AM CDT Expected Value for Healthy Non- premenopausal women <5.3mIU/mL FOR GESTATIONAL ASSESSMENT-See Range Table Below Weeks of gestation hCG mIU/mL 3 weeks gestation (5.8 - 71.2) 4 weeks gestation (9.5 - 750) 5 weeks gestation (217 - 7138) 6 weeks gestation (158 - 31,795) 7 weeks gestation (3,697 - 163,563) 8 weeks gestation (32,065 - 149,571) 9 weeks gestation (63,803 - 151,410) 10 weeks gestation (46,509 - 186,977) 12 weeks gestation (27,832 - 210,612) 14 weeks gestation (13,950 - 62,530) 15 weeks gestation (12,039 - 70,971) 16 weeks gestation (9,040 - 56,451) 17 weeks gestation (8,175 - 55,868) 18 weeks gestation (8,099 - 58,176) Biotin supplements may cause clinically significant interference for this test assay. ??If interference is suspected, it is strongly recommended that biotin is discontinued for at least one week prior to retesting. Anthony Suero MD CHEMISTRY [facility] [address] [phone] * (ABNORMAL) HEPATIC FUNCTION PANEL (04/28/2024 6:15 AM CDT) ALBUMIN 3.9(L) 4.0 - 4.9 g/dL 04/28/2024 7:08 AM [facility] PROTEIN,TOTAL 6.5 6.0 - 8.0 g/dL 04/28/2024 7:08 AM [facility] BILIRUBIN,TOTAL 0.4 0.0 - 1.2 mg/dL 04/28/2024 7:08 AM [facility] BILIRUBIN,DIRECT 0.2 0.0 - 0.2 mg/dL 04/28/2024 7:08 AM [facility] BILIRUBIN,INDIRE CT 0.2 0.2 - 0.8 mg/dL 04/28/2024 7:08 AM [facility] ALK PHOSPHATASE 71 35 - 104 IU/L 04/28/2024 7:08 AM [facility] ALT (SGPT) 7(L) 10 - 35 IU/L 04/28/2024 7:08 AM [facility] AST (SGOT) 16 10 - 35 IU/L 04/28/2024 7:08 AM [facility] Blood BLOOD SPECIMEN / Unknown Butterfly / Unknown 04/28/2024 6:15 AM CDT 04/28/2024 6:23 AM T Anthony Suero MD CHEMISTRY [facility] [address] [address] * (ABNORMAL) BASIC METABOLIC PANEL (04/28/2024 6:15 AM CDT) SODIUM 137 136 - 145 mmol/L 04/28/2024 6:48 AM [facility] POTASSIUM 3.7 3.5 - 5.1 mmol/L 04/28/2024 6:48 AM [facility] CHLORIDE 105 98 - 107 mmol/L 04/28/2024 6:48 AM [facility] CO2,TOTAL 21(L) 22 - 29 mmol/L 04/28/2024 6:48 AM [facility] ANION GAP 11 5 - 18 04/28/2024 6:48 AM [facility] GLUCOSE 143(H) 70 - 99 mg/dL 04/28/2024 6:48 AM [facility] CALCIUM 8.6 8.6 - 10.0 mg/dL 04/28/2024 6:48 AM [facility] BUN 9 6 - 20 mg/dL 04/28/2024 6:48 AM [facility] CREATININE 0.60 0.50 - 0.90 mg/dL 04/28/2024 6:48 AM [facility] BUN/CREAT RATIO 15 10 - 20 6:48 AM [facility] eGFR >90 >90 mL/min/1.7 3m2 04/28/2024 6:48 AM [facility] Comment:As of 2021, eG FR is calculated by the CKD-EPI creatinine equation without race adjustment. ??eGFR can be influenced by muscle mass, exercise, and diet. ??The reported eGFR is an estimation only and is only applicable if the renal function is stable. Blood BLOOD SPECIMEN / Unknown Butterfly / Unknown 04/28/2024 6:15 AM CDT 04/28/2024 6:23 AM CDT Anthony Suero MD CHEMISTRY Performing Organization Address [facility] Phone Number [facility] [address] [phone] * (ABNORMAL) GLUCOSE METER (02/27/2024 12:39 PM CDT) Only the most recent of9 resultswithin the time period is included. GLUCOSE METER 131(H) 65 - 100 mg/dL 02/29/2024 1:52 AM CDT [facility] Blood BLOOD SPECIMEN / Unknown 02/27/2024 12:39 PM CDT 02/29/2024 1:52 AM CDT Cj Senior MD CHEMISTRY Performing Organization Address [facility] Number [address] [phone] * [employer] THIN PREP PAP DIAGNOSTIC IMAGED (06/02/2020 2:36 PM CDT) Case Report Gynecologic Cytology Report ? Case: [id number] ? Authorizing Provider: ??Lydia Hua NP ? Collected: ? 06/02/2020 1436 ? Ordering Location: ? [facility] ?Received: ?06/04/2020 0912 ? First Screen: ?Daniela Collins ? Rescreen: ?Anushka Amado ? Specimen: ?[employer] ThinPrep Vial Diagnostic, Cervical ? 06/10/2020 1:19 PM CDT [facility] INTERPRETATION/ RESULT NEGATIVE FOR INTRAEPITHELIAL LESION OR MALIGNANCY (NIL) (none) 06/10/2020 1:19 PM T [facility] IMEN ADEQUACY Satisfactory for evaluation Endocervical component present 06/10/2020 1:19 PM CDT [facility] HPV REQUEST HPV and PAP 06/10/2020 1:19 PM CDT [facility] Last Pap Result First Pap/Unknown 1:19 PM CDT [facility] Branford Bx Done Today No 06/10/2020 1:19 PM T [facility] Additional Information 06/10/2020 1:19 PM T [facility] Comment: Interpreted at [facility], Central Laboratory - [address], [place] [address] Automated Review Successful 06/10/2020 1:19 PM CDT [facility] Comment:Specimen processed s uccessfully by automated antique furniture reproducer device, ThinPrep Imaging System, [employer] ANCILLARY TESTING [employer] HPV Ordered, Please see separate report 06/10/2020 1:19 PM T [facility] Note The pap test is a screening technique, not a diagnostic procedure. It is used primarily to screen for squamous cancers and precursor lesions. Published studies have shown that it is subject to both false negative and false positive results. The pap test should not be used as the sole means to diagnose or exclude pre-malignant and malignant lesions. 06/10/2020 1:19 PM CDT [facility] Other (Cervical) 06/02/2020 2:36 PM CDT 06/04/2020 9:12 AM CDT Lydia Hua NP PATHOLOGY/CYTOLOGY [facility] LABORATORY [address] [place] [address], [place] from Last 3 Months or Most Recently Relevant to Health Maintenance Advance Directives * Full Code (Latest Code Status on File) Date Activated Date Inactivated Comments 02/25/2024 6:20 PM 02/27/2024 7:03 PM Question Answer Comments Code Status Discussion: Reviewed Preferences * Full Code Date Activated Date Inactivated Comments 10/26/2016 5:34 AM 10/28/2016 3:06 PM * Full Code Date Activated Date Inactivated Comments 09/18/2016 10:19 AM 09/18/2016 3:23 PM * Full Code Date Activated Date Inactivated Comments 12/02/2015 3:37 AM 12/03/2015 4:38 PM * Full Code Date Activated Date Inactivated Comments 03/11/2014 7:00 AM 03/11/2014 4:12 PM Care Teams Front Edger Relationship Specialty Start Date End Date Pcp, No . PCP - General 12/06/22 Eliud Morgan PA . Physician Chip Mucker 12/06/22 Nonstaff, Doctor NON STAFF DOCTOR 12/26/13
--- NOTE | 2024-05-01 14:00 | CRLHL7_ITS ---
For Patients: As a result of the Century Cures Act, medical imaging exams and procedure reports are released immediately into your electronic medical record. You may view this report before your referring provider. If you have questions, please contact your health care provider. INDICATION: First trimester scan, establish dates. COMPARISON: None. TECHNIQUE: Real-time de los santos-scale imaging of the pelvis was performed. FINDINGS: Sonographic imaging demonstrates a single living intrauterine gestation. The embryo demonstrates a regular cardiac rate measuring 161 beats per minute. The embryo`s crown-rump length measurement of 1.8 cm corresponds to a gestational age of 8 weeks 2 days with a sonographic due date of 12/09/2024. There is a normal-appearing yolk sac. There are no gross abnormalities noted within the embryo at this early state of development. The gestational sac has a normal appearance. There is no evidence of a perigestational hemorrhage. The amount of fluid within the sac appears appropriate for gestational age. The cervix is closed. The myometrium appears normal. Left ovarian cyst containing diffuse low-level echoes measures 5.1 x 3.5 x 3.7 cm. Simple anechoic right ovarian cyst measures 3.1 x 2.1 x 3.5 cm. There are no suspicious fluid collections noted in the cul-de-sac. IMPRESSION: Single living intrauterine with sonographic gestational age 8 weeks 2 days and sonographic due date of 12/09/2024. Simple right ovarian cyst measures 3.5 cm. Complex left ovarian cyst measures 5.1 cm. Dictated by Cj Melgar MD @ 05/02/2024 8:58:56 AM (Electronically Signed)
== END 2024-05-01 13:52 | disposition home or self-care (01) ==
LOC: US 13:53
PROVIDERS: PCP Nurse Practitioner Family; Visit Provider Physician Assistant
DX: Z34.91 Encounter for supervision of normal pregnancy, unspecified, first trimester (principal); O34.81 Maternal care for other abnormalities of pelvic organs, first trimester; N83.291 Other ovarian cyst, right side; N83.202 Unspecified ovarian cyst, left side; Z3A.08 8 weeks gestation of pregnancy
CPT/HCPCS: 76817

== ENCOUNTER 2024-05-01 15:29 | Outpatient (CLI) | payer MEDICAID, SELFPAY ==
--- OUTSIDE RECORDS SUMMARY | 2024-05-01 15:32 | XMS_ITS | Clinical Summary ---
Author Organization [facility] Address [place], [place] [address] Care Team Providers Care Shooter Helper Name Role Phone Pcp, No Primary Care Provider UnavailEliud Flowers Unavailable [phone] Nonstaff, Doctor Unavailable Unavailable Allergies No [...] CDT - 04/28/2024 8:12 AM CDT Emergency [address] [address] Anthony Suero MD Peterson, Christopher Roy, MD Abdominal pain affecting (Primary Dx); Subchorionic hematoma in first trimester, single or unspecified fetus; Ovarian cyst affecting in first trimester, antepartum Discharge Disposition: Home Self Care 04/28/2024 Travel 02/25/2024 5:48 PM CDT - 02/27/2024 4:00 PM CDT Hospital Encounter [address] [address] Cj Senior MD Major depressive disorder, single episode, moderate (HC) (Primary Dx) Discharge Disposition: Home Self Care 02/25/2024 12:22 AM CDT - 02/25/2024 5:42 PM CDT Emergency [address] [address] Brandon Dias MD Swenson, Nathan Dean, MD Depression, unspecified depression type (Primary Dx); Suicidal ideation Discharge Disposition: Short Term/[facility] 02/25/2024 Travel from Last 3 Months Immunizations Name Administration Dates Next Due COVID-19 vaccine ([employer] 30mcg/0.3mL) PF, MDV 09/14/2021,07/20/2021 DTaP 03/21/2000,09/21/1999,08/18/1999 [...] None Livin g 9 9 Complications:None Delivery Location:[facility] 2016 35w 6d 2.92 kg (6 lb 7 oz) F Vag None Livin g 9 10 GORDON BARRY ,BG ALVERTO Coyle Delivery Location:[facility] Current Last Filed Vital Signs Vital Sign [...] GLUCOSE METER Routine 02/25/2024 9:29 PM CDT LUMBER TALLIER THIN PREP PAP DIAGNOSTIC IMAGED Routine 06/02/2020 2:36 PM CDT from Last 3 Months or Most Recently Relevant to Health Maintenance Results * SCAN-RADIOLOGY REPORT (04/28/2024 7:50 AM CDT) Anatomical Region Laterality Modality Other Scanner OTHER * (ABNORMAL) UA W/ SEDIMENT EXAM REFLEXED PER CRITERIA (04/28/2024 6:25 AM CDT) COLOR Yellow Yellow Color 04/28/2024 6:[address] [facility] CLARITY Clear Clear Clarity 04/28/2024 6:[address] [facility] SPECIFIC GRAVITY,URINE >=1.030(A) 1.010, 1.015, 1.020, 1.025 04/28/2024 6:[address] [facility] PH,URINE 6.0 6.0, 7.0, 8.0, 5.5, 6.5, 7.5, 8.5 04/28/2024 6:[address] [facility] UROBILINOGEN, QUALITATIVE Normal Normal EU/dl 04/28/2024 6:[address] [facility] PROTEIN, URINE Negative Negative mg/dL 04/28/2024 6:[address] [facility] GLUCOSE, URINE Negative Negative mg/dL 04/28/2024 6:[address] [facility] KETONES,URINE Negative Negative mg/dL 04/28/2024 6:[address] [facility] BILIRUBIN,URI NE Negative Negative 04/28/2024 6:[address] [facility] OCCULT BLOOD,URINE Negative Negative 04/28/2024 6:[address] [facility] NITRITE Negative Negative 04/28/2024 6:[address] [facility] LEUKOCYTE ESTERASE Negative Negative 04/28/2024 6:[address] [facility] Urine URINE SPECIMEN / Unknown Non-Blood / Unknown 04/28/2024 6:25 AM CDT 04/28/2024 6:45 AM T Anthony Suero MD URINE Performing Organization Address City/State/[facility] Co de Phone Number [facility] [address] [address] * (ABNORMAL) CBC WITH AUTO DIFFERENTIAL (04/28/2024 6:15 AM CDT) WHITE BLOOD COUNT 8.2 4.5 - 11.0 thou/cu mm 04/28/2024 6:[address] [facility] RED BLOOD COUNT 4.05 4.00 - 5.20 mil/cu mm 04/28/2024 6:[address] [facility] HEMOGLOBIN 11.6(L) 12.0 - 16.0 g/dL 04/28/2024 6:[address] [facility] HEMATOCRIT 36.6 33.0 - 51.0 % 04/28/2024 6:[address] [facility] MCV 90 80 - 100 fL 04/28/2024 6:[address] [facility] MCH 28.6 26.0 - 34.0 pg 04/28/2024 6:[address] [facility] MCHC 31.7(L) 32.0 - 36.0 g/dL 04/28/2024 6:[address] [facility] RDW 13.0 11.5 - 15.5 % 04/28/2024 6:[address] [facility] PLATELET COUNT 235 140 - 440 thou/cu mm 04/28/2024 6:[address] [facility] MPV 10.8 6.5 - 11.0 fL 04/28/2024 6:[address] [facility] % NEUT 69.6 % 04/28/2024 6:[address] [facility] % LYMPH 23.5 % 04/28/2024 6:[address] [facility] % MONO 5.2 % 04/28/2024 6:[address] [facility] % EOS 1.6 % 04/28/2024 6:[address] [facility] % BASO 0.1 % 04/28/2024 6:[address] [facility] ABSOLUTE NEUTROPHILS 5.7 1.7 - 7.0 thou/cu mm 04/28/2024 6:[address] [facility] ABSOLUTE LYMPHOCYTES 1.9 0.9 - 2.9 thou/cu mm 04/28/2024 6:[address] [facility] ABSOLUTE MONOCYTES 0.4 <0.9 thou/cu mm 04/28/2024 6:[address] [facility] ABSOLUTE EOSINOPHILS 0.1 <0.5 thou/cu mm 04/28/2024 6:[address] [facility] ABSOLUTE BASOPHILS 0.0 <0.3 thou/cu mm 04/28/2024 6:[address] [facility] Blood BLOOD SPECIMEN / Unknown Butterfly / Unknown 04/28/2024 6:15 AM CDT 04/28/2024 6:23 AM CDT Anthony Suero MD HEMATOLOGY Performing Organization Address [facility] [place] Co de Phone Number [facility] [address] [place] [phone] * TYPE AND SCREEN ONLY (04/28/2024 6:15 AM CDT) ABORH O Rh Positive 04/28/2024 7:[address] [facility] BLOOD BANK ANTIBODY SCREEN Negative Negative 04/28/2024 7:[address] [facility] BLOOD BANK SPECIMEN EXPIRATION DATE/TIME 05/01/24 23:59 04/28/2024 7:[address] [facility] BLOOD BANK Blood BLOOD SPECIMEN / Unknown Butterfly / Unknown 04/28/2024 6:15 AM CDT 04/28/2024 6:23 AM CDT Anthony Suero MD BLOOD BANK Performing Organization Address [facility] [place] Co de Phone Number [facility] BLOOD BANK [address] [address] * HCG BETA QUANT, (04/28/2024 6:15 AM CDT) HCG BETA QUANT,PREGNANC Y 31,505 mIU/mL 04/28/2024 7:[address] [facility] Blood BLOOD SPECIMEN / Unknown Butterfly / Unknown 04/28/2024 6:15 AM CDT 04/28/2024 6:23 AM CDT [facility] - 04/28/2024 7:17 AM CDT Expected [...] prior to retesting. Anthony Suero MD CHEMISTRY [facility] [address] [phone] * (ABNORMAL) HEPATIC FUNCTION PANEL (04/28/2024 6:15 AM CDT) ALBUMIN 3.9(L) 4.0 - 4.9 g/dL 04/28/2024 7:[address] [facility] PROTEIN,TOTAL 6.5 6.0 - 8.0 g/dL 04/28/2024 7:[address] [facility] BILIRUBIN,TOTAL 0.4 0.0 - 1.2 mg/dL 04/28/2024 7:[address] [facility] BILIRUBIN,DIRECT 0.2 0.0 - 0.2 mg/dL 04/28/2024 7:[address] [facility] BILIRUBIN,INDIRE CT 0.2 0.2 - 0.8 mg/dL 04/28/2024 7:[address] [facility] ALK PHOSPHATASE 71 35 - 104 IU/L 04/28/2024 7:[address] [facility] ALT (SGPT) 7(L) 10 - 35 IU/L 04/28/2024 7:[address] [facility] AST (SGOT) 16 10 - 35 IU/L 04/28/2024 7:[address] [facility] Blood BLOOD SPECIMEN / Unknown Butterfly / Unknown 04/28/2024 6:15 AM CDT 04/28/2024 6:23 AM T Anthony Suero MD CHEMISTRY [facility] [address] [address] * (ABNORMAL) BASIC METABOLIC PANEL (04/28/2024 6:15 AM CDT) SODIUM 137 136 - 145 mmol/L 04/28/2024 6:[address] [facility] POTASSIUM 3.7 3.5 - 5.1 mmol/L 04/28/2024 6:[address] [facility] CHLORIDE 105 98 - 107 mmol/L 04/28/2024 6:[address] [facility] CO2,TOTAL 21(L) 22 - 29 mmol/L 04/28/2024 6:[address] [facility] ANION GAP 11 5 - 18 04/28/2024 6:[address] [facility] GLUCOSE 143(H) 70 - 99 mg/dL 04/28/2024 6:[address] [facility] CALCIUM 8.6 8.6 - 10.0 mg/dL 04/28/2024 6:[address] [facility] BUN 9 6 - 20 mg/dL 04/28/2024 6:[address] [facility] CREATININE 0.60 0.50 - 0.90 mg/dL 04/28/2024 6:[address] [facility] BUN/CREAT RATIO 15 10 - 20 6:[address] [facility] eGFR >90 >90 mL/min/1.7 3m2 04/28/2024 6:[address] [facility] Comment:As of 2021, eG FR is calculated [...] Anthony Suero MD CHEMISTRY Performing Organization Address [facility] [place] Phone Number [facility] [address] [phone] * (ABNORMAL) GLUCOSE METER (02/27/2024 12:39 PM CDT) Only the most recent of9 resultswithin the time period is included. GLUCOSE METER 131(H) 65 - 100 mg/dL 02/29/2024 1:[address] [facility] Blood BLOOD SPECIMEN / Unknown 02/27/2024 12:39 PM CDT 02/29/2024 1:52 AM CDT Cj Senior MD CHEMISTRY Performing Organization Address [facility] Number [address] [address] * LUMBER TALLIER THIN PREP PAP DIAGNOSTIC IMAGED (06/02/2020 2:36 PM CDT) Case Report Gynecologic Cytology Report ? Case: [id number] ? Authorizing Provider: ??Lydia Hua NP ? Collected: ? 06/02/2020 1436 ? Ordering Location: ? [facility] ?Received: ?06/04/2020 0912 ? First Screen: ?Daniela Collins ? Rescreen: ?Anushka Amado ? Specimen: ?LUMBER TALLIER ThinPrep Vial Diagnostic, Cervical ? 06/10/2020 1:[address] [facility] INTERPRETATION/ RESULT NEGATIVE FOR INTRAEPITHELIAL LESION OR MALIGNANCY (NIL) (none) 06/10/2020 1:[address] [facility] IMEN ADEQUACY Satisfactory for evaluation Endocervical component present 06/10/2020 1:[address] [facility] HPV REQUEST HPV and PAP 06/10/2020 1:[address] [facility] Last Pap Result First Pap/Unknown 1:[address] [facility] [place] Bx Done Today No 06/10/2020 1:[address] [facility] Additional Information 06/10/2020 1:[address] [facility] Comment: Interpreted at [facility] - [address], [place] [address] Automated Review Successful 06/10/2020 1:[address] [facility] Comment:Specimen processed s uccessfully by automated communications department head device, ThinPrep Imaging System, [employer] ANCILLARY TESTING LUMBER TALLIER HPV Ordered, Please see separate report 06/10/2020 1:[address] [facility] Note The pap test is a [...] and malignant lesions. 06/10/2020 1:19 PM CDT [facility] Other (Cervical) 06/02/2020 2:36 PM CDT 06/04/2020 9:12 AM CDT Lydia Hua NP PATHOLOGY/CYTOLOGY [facility] [address] [place] [address], [place] from Last 3 Months or Most [...] 7:00 AM 03/11/2014 4:12 PM Care Teams Shooter Helper Relationship Specialty Start Date End Date Pcp, No . PCP - General 12/06/22 Eliud Morgan PA . Physician Latin Dance Instructor 12/06/22 Nonstaff, Doctor NON STAFF DOCTOR 12/26/13
[2024-05-01 20:11] LABS: GC DNA Amplified* NOT DETECTED (No Detected)
[2024-05-01 22:23] LABS: Chlamydia DNA Amplified* DETECTED (No Detected)
[2024-05-04 01:26] LABS: HPV Source Cervix; HPV, High Risk by TMA Detected
[2024-05-05 00:29] LABS: HPV Genotype 16 by TMA Not Detected; HPV Genotype 18/45 by TMA Not Detected; HPV Reflex Billing Y; HPVG Source Cervix
[2024-05-09 14:02] LABS: PAP Reflex Billing Y; Pap Test Reviewed by Path Done
== END 2024-05-01 15:30 | disposition home or self-care (01) ==
PROVIDERS: PCP Nurse Practitioner Family; Visit Provider Physician Assistant
DX: O09.291 Supervision of pregnancy with other poor reproductive or obstetric history, first trimester (principal); Z36.89 Encounter for other specified antenatal screening; O24.111 Pre-existing type 2 diabetes mellitus, in pregnancy, first trimester; O99.341 Other mental disorders complicating pregnancy, first trimester; F41.9 Anxiety disorder, unspecified; F32.A Depression, unspecified; O34.81 Maternal care for other abnormalities of pelvic organs, first trimester; N83.202 Unspecified ovarian cyst, left side; Z79.4 Long term (current) use of insulin; R74.01 Elevation of levels of liver transaminase levels; Z3A.08 8 weeks gestation of pregnancy
CPT/HCPCS: 80076; 82565; 82570; 84156; 84520; 86592; 86703; 86704; 86706; 86762; 86787; 86803; 86850; 86900; 86901; 87086; 87186; 87340; 87491; 87591; 87624; 87625; 88141; 88142

== ENCOUNTER 2024-05-29 12:56 | Emergency (ER) | payer MEDICAID, SELFPAY ==
[2024-05-29 13:02] VITALS: BP 124/80; PULSE 59; RESP 18; TEMP 36.4; O2SAT 100; BMI 31.5
--- NOTE | 2024-05-29 13:07 | ED.SOB ---
HPI - SOB/Dyspnea General Time Seen by Provider: 13:07 Date Seen: 05/29/24 Chief Complaint: Shortness of Breath/Dyspnea Stated Complaint: Abnormal EKG per clinic Time Seen by Provider: 05/29/24 13:06 Source: patient, RN notes reviewed and other (reviewed with Dr. Nagy) Mode of arrival: ambulatory Limitations: no limitations History of Present Illness HPI Narrative: This 33-year-old female is referred to us from her [facility] where she was seen Dr. Morocho. Patient was reporting shortness of breath and shortness of breath with eating since the onset of this . Her systems support engineer got an EKG and there were flipped T-waves inferiorly without ST segment change, flipped T-waves in 1 in aVL. Patient does tell me that when she is feeling short of breath with activity that she will get some left substernal chest pain. She has never had any prior cardiac or pulmonary diagnoses on questioning. There is no associated reflux or GI symptoms with this. She has never had any blood clot in her past. She has had 5 prior pregnancies without complication per her report. No fevers or chills. She maybe will cough occasionally but does not feel ill, does not have any significant cough. Her systems support engineer did talk to me about some significant mental health issues with this patient. Patient is questioned on this at this time, she states that is not why she is here in the ER in does not feel she needs help with her mental health from us. She states she was given a referral and is waiting for therapy intake or appointment of some sort for her mental health. She denies any suicidality to me at this time. She is questioned multiple times, she is advised that we are certainly willing to assess and assist in mental health as well. She declines this for me at this point. She would like workup for her shortness of breath. She has been diabetic for about a year. EKG from clinic shows normal sinus rhythm, 61 beats per minute. Flipped T-waves inferior leads lead 2 and AVF with Q-waves. Low voltage in 3. Flipped T-waves with Q-waves in 1 and aVL as well. Related Data Previous Rx's ?Medication ?Instructions ?Recorded blood-glucose meter,continuous #1 ea 05/21/23 ([employer] G6 Change Analyst) blood-glucose transmitter (Dexcom #1 ea 05/21/23 G6 Transmitter device) albuterol sulfate 90 mcg/actuation 2 inh inhalation Q4-6H PRN 02/11/24 aerosol inhaler (Ventolin HFA) shortness of breath or wheezing #8.5 grams blood-glucose sensor (Dexcom G6 #9 ea 02/11/24 Sensor device) sertraline 50 mg tablet (Zoloft) 50 mg PO QDAY #90 tabs 05/12/24 Allergies Allergy/AdvReac Type Severity Reaction Status Date / Time No Known Drug Allergies Allergy Verified 05/29/24 11:01 Review of Systems Status of ROS: Reports: 6 or more systems reviewed and unremarkable except as noted in History and below [facility] Medical History Atypical chest pain ?R07.89 - Other chest pain (ICD-10) Abnormal uterine bleeding ?N93.9 - Abnormal uterine and vaginal bleeding, unspecified (ICD-10) Radiculopathy ?M54.10 - Radiculopathy, site unspecified (ICD-10) Low back pain ?M54.50 - Low back pain, unspecified (ICD-10) History of abnormal cervical Pap smear ?Z87.42 - Personal history of other diseases of the female genital tract (ICD-10) History of ovarian cyst (2017) ?Z87.42 - Personal history of other diseases of the female genital tract (ICD-10) Surgical History History of cholecystectomy ?Z90.49 - Acquired absence of other specified parts of digestive tract (ICD-10) Family History Mother Prediabetes Maternal Grandfather SCC (squamous cell carcinoma) Social History Narrative: Occupation: Works for [employer] in [place]. Marital status: . Synagogue/cultural needs: no. Chemical or radiation exposure: no. Pre- tobacco use: no. Pre- alcohol use: no. Current tobacco use: no. Current alcohol use: no. Recreational drug use: no. Dietary restrictions: no. Blood transfusion acceptable in an emergency: yes. PSYCHOSOCIAL HISTORY: History of depression or currently depressed: yes. Current or past physical, emotional, or sexual mistreatment: no. Problems that will make it hard to make it to appointments: no. What is your current living situation?: I presently have a place to live Problems where you live: no known problems In the past 12 months, utilities in danger of being shut off: no In past 12 months, lack of transportation kept you from medical appts, meetings, work, or getting things needed for daily living: no In the past 12 mos, have been you worried that your food would run out before you had money to buy more?: never true In the past 12 mos, the food you bought just didn't last and you didn't have money to buy more?: never true Smoking Status: Never smoker How often does anyone, including family, friends and others, physically hurt you: never How often does anyone, including family, friends and others, insult or talk down to you: never How often does anyone, including family, friends and others, threaten you with harm: never How often does anyone, including family, friends and others, scream or curse at you: never Little interest or pleasure in doing things: nearly every day Feeling down, depressed, or hopeless: nearly every day Exam Const: Vital Signs, click to edit/add: Vital Signs - 24 hr 05/29/24 13:02 Temperature 97.6 F Pulse Rate [Right Pulse Oximeter] 59 L Respiratory Rate 18 Blood Pressure [Ri ght Upper Arm] 124/80 Pulse Oximetry 100 Oxygen Delivery Me thod Room Air Patient is alert, interactive, no apparent distress. She is in room 3, very pleasant, good eye contact. Mood appears normal, happy, no anxiety noted here at this time. Pupils equal round reactive, sclera clear, face atraumatic and symmetrical function. Neck supple, no thyromegaly masses or nodules, no neck masses, no adenopathy. Lungs are clear, good air entry, no wheezing or crackles, no tachypnea. CV regular rate and rhythm, no murmur, normal S1-S2, no S3-S4. Abdomen is soft, nontender, nondistended, no masses. No lower extremity edema, no calf tenderness on either side. Denies any suicidality. Documenting provider has reviewed patient's vital signs: yes Course Course ED Course: Patient is complaining of chest pain and shortness of breath with activity as well as eating without any reflux type symptoms. She has no history of thromboembolic disease but is and certainly increases her risk. She is not tachycardic or hypoxic but thromboembolic disease does need to be ruled out. Will also look at troponin on her. I believe she has a cardiology referral placed from my discussion with systems support engineer. If her workup here is normal, may need echo and cardiology referral. She is advised that we are certainly happy to assist in any mental health capacity she may need, she declines at this time but is instructed to let me know if she should change her mind. She understands that we will be doing the chest CT PE protocol. She has no physical exam findings consistent with any fluid overload. Cardiomyopathy is always a possibility as well, myocarditis but doubt this as she has had symptoms for 3 months. Reevaluation(s) Time of Reevaluation #1: 14:36 Reevaluation #1: Reviewed normal chest CT with patient, did give her a copy of her results. She has normal laboratory findings here. Do think she is stable to discharge to home. She is reporting that she has had the symptoms throughout her whole which is been 3 months at this point. Will have her follow up outpatient with her systems support engineer, consider echo and cardiology consultation as next step. She understands if she has worsening to return. Vital Signs Vital signs: Initial Vital Signs Temperature 97.6 F 05/29/24 13:02 Temperature Source Temporal Artery Scan 05/29/24 13:02 Pulse Rate 59 L 05/29/24 13:02 Respiratory Rate 18 05/29/24 13:02 Blood Pressure 124/80 05/29/24 13:02 Blood Pressure Mean 94 05/29/24 13:02 Blood Pressure Position Sitting 05/29/24 13:02 Pulse Oximetry 100 05/29/24 13:02 Oxygen Delivery Method Room Air 05/29/24 13:02 Vital Signs Temperature 97.6 F 05/29/24 13:02 Pulse Rate 59 L 05/29/24 13:02 Respiratory Rate 18 05/29/24 13:02 Blood Pressure 124/80 05/29/24 13:02 Pulse Oximetry 100 05/29/24 13:02 Oxygen Delivery Method Room Air 05/29/24 13:02 Temperature 97.6 F 05/29/24 13:02 Pulse Rate 59 L 05/29/24 13:02 Respiratory Rate 18 05/29/24 13:02 Blood Pressure 124/80 05/29/24 13:02 Pulse Oximetry 100 05/29/24 13:02 Oxygen Delivery Method Room Air 05/29/24 13:02 MDM - SOB/Dyspnea Lab Data Attestation: I reviewed the patient's lab results. Labs: Lab Results 05/29/24 Range/Units 13:40 WBC 8.44 (4.50-11.00) K/uL RBC 4.72 (4.00-5.20) m/uL Hgb 13.3 (12.0-16.0) gm/dL Hct 41.1 (33.0-51.0) % MCV 87 (80-100) fL MCH 28 (26-34) pg MCHC 32 (32-36) gm/dL RDW Coeff of Dandre 12.7 (11.5-15.5) % Plt Count 231 (140-440) K/uL Neut % (Auto) 67.8 (42.0-72.0) % Lymph % (Auto) 25.8 (20-44) % Bartholomew % (Auto) 4.7 (0.0-11.0) % Eos % (Auto) 0.9 (0.0-7.0) % Baso % (Auto) 0.2 (0.0-3.0) % Neut # (Auto) 5.71 (1.7-7.0) K/uL Lymph # (Auto) 2.18 (0.90-2.90) K/uL Bartholomew # (Auto) 0.40 (0.00-0.90) K/UL Eos # (Auto) 0.08 (0.00-0.50) K/uL Baso # (Auto) 0.02 (0.00-0.30) K/uL Abs Immat Gran (auto) 0.05 (0.00-0.30) K/uL Imm/Tot Granulo (auto) 0.6 % VBG pH 7.366 (7.32-7.43) VBG pCO2 43 (40-50) mmHG VBG pO2 < 30.1 (25-47) mmHG VBG HCO3 24 (21-28) mmol/L Sodium 134 L (135-149) mmol/L Potassium 4.0 (3.6-5.1) mmol/L Chloride 101 (96-114) mmol/L Carbon Dioxide 22 (20-32) mmol/L Anion Gap 11 (7-15) mEq/L BUN 9 (5-24) mg/dL Creatinine 0.5 (0.5-1.5) mg/dL Estimated Creat Clear 144.00 Estimated GFR 127 ml/min Glucose 99 (60-115) mg/dL Calcium 9.3 (8.4-10.6) mg/dL Magnesium 2.1 (1.5-2.6) mg/dL Total Bilirubin 0.3 (0.1-1.5) mg/dL AST 19 (12-35) U/L ALT 11 (4-35) U/L Alkaline Phosphatase 70 (40-150) U/L Troponin I < 0.01 L (0.01-0.04) ng/mL NT-Pro-B Natriuret Pep < 20 pg/mL Total Protein 8.2 (6.0-8.3) g/dL Albumin 4.8 (3.3-5.0) g/dL Imaging Data CT scan - chest: Attestation: I have reviewed the pertinent imaging results. Radiologist's impression: Patient: NORBERT LEYVA Facility:?[facility] Patient ID:?[id number] Site Patient ID:?[id number]. Site :?1990 Study:?CT-Chest Angio PE Protocol WITH 95 CC'S ISOVUE 370-05/29/2024 2:09:47 PM Ordering Physician:Kristine Jansen Final Report: INDICATION: , abnormal EKG, chest pain and shortness of breath TECHNIQUE: CT chest PE was acquired with 95 cc Isovue 370 intravenous contrast. COMPARISON: None. FINDINGS: Heart and vasculature: Contrast opacification of the pulmonary arterial tree is adequate. No sign of pulmonary embolism. Heart size is normal. Thoracic aorta and pulmonary artery are normal in caliber. Lungs and pleural: No suspicious nodules or infiltrates. No pleural effusions, pleural thickening, or pneumothorax. Lymph nodes/mediastinum: Calcified mediastinal lymph nodes. Chest wall: No masses. Upper abdomen: Status post cholecystectomy. Bones: Unremarkable for age. IMPRESSION: 1. No evidence of acute pulmonary embolus. 2. No acute pulmonary consolidation. 3. Old granulomatous disease. Please note that all CT scans at this facility use dose modulation, iterative reconstruction, and/or weight-based dosing when appropriate to reduce radiation dose to as low as reasonably achievable. Dictated by Rubén Hernandez MD @ 05/29/2024 2:17:35 PM (Electronic Signature) Discharge Plan Discharge Clinical Impression: Shortness of breath Qualifiers: Weeks of gestation: 12 weeks Qualified Code(s): Z3A.12 - 12 weeks gestation of Patient Disposition: Home, Self-Care Condition: Stable Instructions: at 11 to 14 Weeks (ED), Shortness of Breath (ED) Additional Instructions: Need to contact your systems support engineer. Do recommend having an echo done and cardiology consultation with ongoing symptoms. There is no evidence of any pulmonary emboli/blood clots in your lungs today. There is no evidence of any infection in the lungs. Heart enzyme was normal, cardiac size was normal on the chest CT. Echo should be considered for functional assessment of your heart. Cardiology consultation also recommended. Activity Level: Activity as Tolerated Prescriptions: No Action (DME) Dexcom G6 Change Analyst Misc See Rx Instructions .Route Qty: 1 0RF Rx Instructions: As directed (DME) Dexcom G6 Transmitter Device See Rx Instructions .Route Qty: 1 0RF Rx Instructions: As directed (DME) Dexcom G6 Sensor Device See Rx Instructions .Route Qty: 9 6RF Rx Instructions: As directed albuterol sulfate [Ventolin HFA] 90 mcg/actuation HFA aerosol inhaler 2 inh inhalation Q4-6H PRN (Reason: shortness of breath or wheezing) Qty: 8.5 1RF sertraline [Zoloft] 50 mg tablet 50 mg PO QDAY Qty: 90 1RF Rx Instructions: 25 mg daily x 3 day, then 50mg daily Follow Up/Referrals: Peg Jeff, SCUBA DIVE TRAINING INSTRUCTOR, TELEPHONE CLAIMS REPRESENTATIVE [Primary Care Provider] - Stand Alone Forms: Proficiencyth Info Instructions
[2024-05-29 13:19] VITALS: O2SAT 100
--- NOTE | 2024-05-29 13:19 | CRLHL7_ITS ---
For Patients: As a result of the Century Cures Act, medical imaging exams and procedure reports are released immediately into your electronic medical record. You may view this report before your referring provider. If you have questions, please contact your health care provider. INDICATION: , abnormal EKG, chest pain and shortness of breath TECHNIQUE: CT chest PE was acquired with 95 cc Isovue 370 intravenous contrast. COMPARISON: None. FINDINGS: Heart and vasculature: Contrast opacification of the pulmonary arterial tree is adequate. No sign of pulmonary embolism. Heart size is normal. Thoracic aorta and pulmonary artery are normal in caliber. Lungs and pleural: No suspicious nodules or infiltrates. No pleural effusions, pleural thickening, or pneumothorax. Lymph nodes/mediastinum: Calcified mediastinal lymph nodes. Chest wall: No masses. Upper abdomen: Status post cholecystectomy. Bones: Unremarkable for age. IMPRESSION: 1. No evidence of acute pulmonary embolus. 2. No acute pulmonary consolidation. 3. Old granulomatous disease. Please note that all CT scans at this facility use dose modulation, iterative reconstruction, and/or weight-based dosing when appropriate to reduce radiation dose to as low as reasonably achievable. Dictated by Rubén Hernandez MD @ 05/29/2024 2:17:35 PM (Electronically Signed)
[2024-05-29 13:43] LABS: HCO3 VBG 24 mmol/L (21-28); PCO2 VBG 43 mmHG (40-50); PO2 VBG < 30.1 mmHG (25-47); pH VBG 7.366 (7.32-7.43)
[2024-05-29 13:45] LABS: Basophils Absolute Auto 0.02 K/uL (0.00-0.30); Basophils Percent Auto 0.2 % (0.0-3.0); Eosinophils Absolute Auto 0.08 K/uL (0.00-0.50); Eosinophils Percent Auto 0.9 % (0.0-7.0); Hematocrit 41.1 % (33.0-51.0); Hemoglobin* 13.3 gm/dL (12.0-16.0); Immature Granulocytes Abs Auto 0.05 K/uL (0.00-0.30); Immature Granulocytes Pct Auto 0.6 %; Lymphocytes Absolute Auto 2.18 K/uL (0.90-2.90); Lymphocytes Percent Auto 25.8 % (20-44); Mean Corpuscular HGB Conc 32 gm/dL (32-36); Mean Corpuscular Hemoglobin 28 pg (26-34); Mean Corpuscular Volume 87 fL (80-100); Monocytes Percent Auto 4.7 % (0.0-11.0); Neutrophils Absolute Auto 5.71 K/uL (1.7-7.0); Neutrophils Percent Auto 67.8 % (42.0-72.0); Platelet Count* 231 K/uL (140-440); RDW Coefficient of Variation % 12.7 % (11.5-15.5); Red Blood Count 4.72 m/uL (4.00-5.20); White Blood Count* 8.44 K/uL (4.50-11.00)
[2024-05-29 13:50] LABS: Slide Review Reflex No
[2024-05-29 14:07] LABS: Albumin* 4.8 g/dL (3.3-5.0); Chloride* 101 mmol/L (96-114)
[2024-05-29 14:08] LABS: Sodium* 134 mmol/L (135-149)
[2024-05-29 14:10] LABS: Alanine Aminotransferase* 11 U/L (4-35); Alkaline Phosphatase* 70 U/L (40-150); Anion Gap 11 mEq/L (7-15); Aspartate Amino Transferase* 19 U/L (12-35); Bilirubin Total* 0.3 mg/dL (0.1-1.5); Blood Urea Nitrogen* 9 mg/dL (5-24); Calcium* 9.3 mg/dL (8.4-10.6); Carbon Dioxide* 22 mmol/L (20-32); Creatinine* 0.5 mg/dL (0.5-1.5); Estimated Glomerular Filt Rate 127 ml/min; Glucose* 99 mg/dL (60-115); Total Protein* 8.2 g/dL (6.0-8.3)
[2024-05-29 14:11] LABS: Magnesium* 2.1 mg/dL (1.5-2.6)
[2024-05-29 14:25] LABS: NT Pro B Type NatriureticPept* < 20 pg/mL; Troponin I* < 0.01 ng/mL (0.01-0.04)
== END 2024-05-29 14:47 | disposition home or self-care (01) ==
PROVIDERS: Emergency Provider Family Medicine; PCP Nurse Practitioner Family
DX: R06.02 Shortness of breath (principal); Z3A.12 12 weeks gestation of pregnancy
CPT/HCPCS: 36415; 71275; 80053; 82803; 83735; 83880; 84484; 85025; 94761; 99284; Q9967

== ENCOUNTER 2024-06-17 11:28 | Outpatient (CLI) | payer MEDICAID, SELFPAY ==
--- OUTSIDE RECORDS SUMMARY | 2024-06-17 11:32 | XMS_ITS | Referral Summary ---
Author Organization [facility] Address [address] [place] [address] Care Team Providers Care Medical Lab Tech Instructor Name Role Phone No Ref-Primary, Physician Primary Care Provider Lien Dao PA-C Unavailable Encounters Date Type Department Care Team Description 05/30/2024 Travel 05/30/2024 1:40 PM CDT Office Visit [address] [address] Lien Dao PA-C Pre-existing type 2 diabetes mellitus in in first trimester (Primary Dx); Type 2 diabetes mellitus without complication, unspecified whether long chain beamer insulin use (H); Encounter for supervision of normal in first trimester, unspecified 05/27/[address] [address] Lien Dao PA-C Clinic Care Coordination - Initial 05/23/2024 Transcribe Orders GENERIC EXTERNAL DATA DEPARTMENT Provider, Generic External Data Type 2 diabetes mellitus without complication, unspecified whether fpc insulin use (H) (Primary Dx); Encounter for supervision of normal in first trimester, unspecified 05/23/2024 Transcribe Orders GENERIC EXTERNAL DATA DEPARTMENT Provider, Generic External Data Depression, unspecified (Primary Dx); Anxiety disorder, unspecified 05/01/2024 Medical Correspondence [facility] Information Management [address] [place] [address] [address] [place] [address] Scan, Non-Provider from Last 3 Months Allergies No known active allergies Medications metFORMIN (GLUCOPHAGE XR) 500 MG 24 hr tablet Take 500 mg by mouth daily (with dinner). Active insulin glargine (LANTUS PEN) 100 UNIT/ML penIndications :Pre-existing type 2 diabetes mellitus in in first trimester Inject 8 Units subcutaneously at bedtime. 15 mL 1 4 Active Continuous Glucose Sensor (DEXCOM G7 SENSOR) MISCIndication s:Pre-existing type 2 diabetes mellitus in in first trimester Change every 10 days. 3 each 5 4 Active insulin pen needle (32G X 4 MM) 32G X 4 MM miscellaneousI ndications:Pre -existing type 2 diabetes mellitus in in first trimester Use 1 pen needles daily or as directed. 100 each 2 4 Active Social History Tobacco Use Types Packs/Day Years Used Date Smoking Tobacco: Never Smokeless Tobacco: Never Tobacco Cessation:Counseling Given: Not Answered Comments Yes Sex and Gender Information Value Date Recorded Sex Assigned at Not on file Legal Sex Female 3:07 PM CDT Gender Identity Not on file Sexual Orientation Not on file Last Filed Vital Signs Vital Sign Reading Time Taken Comments Blood Pressure 114/69 05/30/2024 2:01 PM CDT Pulse 64 05/30/2024 2:01 PM CDT Temperature - - Respiratory Rate 16 05/30/2024 2:01 PM CDT Oxygen Saturation 99% 05/30/2024 2:01 PM CDT Inhaled Oxygen Concentration - - Weight 87.5 kg (193 lb) 05/30/2024 2:01 PM CDT Height 165.1 cm (5' 5) 05/30/2024 2:01 PM CDT Body Mass Index 32.12 05/30/2024 2:01 PM CDT Plan of Treatment Upcoming Encounters Date Type Department Care Team (Late st Contact Info) Description 07/02/2024 1:40 PM PRESCHOOL TEACHER'S ASSISTANT Office Visit [address] [address] Lien Dao PA-C [address] [place] [address] Procedures Procedure Name Priority Date/Time Associated Diagnosis Comments AFINION HEMOGLOBIN A1C POCT Routine 05/30/2024 1:47 PM CDT from Last 3 Months Results * (ABNORMAL) AFINION HEMOGLOBIN A1C POCT (05/30/2024 1:47 PM CDT) Estimated Average Glucose POCT 143(H) <117 05/30/2024 2:08 PM CDT [facility] Afinion Hemoglobin A1c POCT 6.6(H) <=5.7 % 05/30/2024 2:08 PM CDT [facility] POC Comment: Normal <5.7% Prediabetes 5.7-6.4% ?? Diabetes 6.5% or higher Note: Adopted from ADA consensus guidelines. Blood, Capillary BLOOD SPECIMEN / Unknown 05/30/2024 1:47 PM CDT 05/30/2024 2:08 PM CDT Lien SANCHEZ [facility] POCT Final Result [facility] [address], [place] [address], [facility] - [address], [place] [address], [facility] from Last 3 Months Care Teams Medical Lab Tech Instructor Relationship Specialty Start Date End Date No Ref-Primary, Physician PCP - General 05/30/24 Lien Dao PA-C [address] [place] [address] Assigned Endocrinology Provider 06/04/24
--- OUTSIDE RECORDS SUMMARY | 2024-06-17 11:32 | XMS_ITS | Encounter Summary ---
Author Organization [facility] Address [address] [place] [address] Care Team Providers Care Taxonomy Teacher Name Role Phone No Ref-Primary, Physician Primary Care Provider Reason for Referral * Consultation (Routine: Next available opening) - Pending Review Specialty Diagnoses / Procedures Referred By Teofilo t Referred To Contact Diabetes Education Diagnoses Pre-existing type 2 diabetes mellitus in in first trimester Lien Dao PA-C [address] [place] [address] Phone: tel: fax: Referral ID Status Reason Start Date Expiration Date V isits Requested Visits Authorized [id number] Pending Review 06/01/2024 06/01/2025 1 1 Question Answer Is the patient ? Yes Last HgbA1c: A1C 6.6 05/30/2024 Type of Training: Previous Diagnosis Diabetes Type: Type 2 Diabetes Co-Morbidities: Other Other: A1C Goal: <7.0 A1C is: No past HGBA1C Medical Nutrition Therapy (MNT) for Diabetes Previous Diagnosis: Annual Follow-up MNT - 2 hours Diabetes Education Topics: Comprehensive Knowledge Assessment and Instruction Special Educational Needs: None, Additional Insulin Training Scheduling Instructions: [facility] will call you to coordinate your care as prescribed by your provider. If you don't hear from a insurance account representative within 2 business days, please call Comments Medicare covers 10 hours of initial Diabetes Self-Management Training (DSMT) in the 12-month period from the time of first visit after diagnosis, plus 2 hours of follow-up DSMT annually. Medical Nutrition Therapy (MNT) with a Registered Dietitian can be provided in coordination with DSMT to assist in achieving optimal diabetes management. Medicare will cover 3 hours of initial MNT in 12-month period from the time of first visit after diagnosis, plus 2 hours of follow-up MNT annually Please be aware that coverage of these services is subject to the terms and limitations of your health insurance plan. Call member services at your health plan to determine Diabetes Self-Management Training (Codes G0108 and G0109) and Medical Nutrition Therapy (Codes 96193 and 25071) benefits and ask which blood glucose monitor brands are covered by your plan. Please bring the following with you to your appointment: 1. List of current medications 2. List of Blood Glucose Monitor brands that are covered by your insurance plan 3. Blood Glucose Monitor and log book 4. Food records for the 3 days prior to your visit [facility] will call you to coordinate your care as prescribed by your provider. If you don't hear from a insurance account representative within 2 business days, please call Reason for Visit * Reason Comments New Patient Diabetes GDM * Consultation (Routine) - Pending Review Specialty Diagnoses / Procedures Referred By Contac t Referred To Contact Endocrinology, Diabetes, and Metabolism Diagnoses Type 2 diabetes mellitus without complication, unspecified whether long-term insulin use (H) Encounter for supervision of normal in first trimester, unspecified [facility] [address] [place] [address] Phone: tel: fax: Referral ID Status Reason Start Date Expiration Date V isits Requested Visits Authorized [id number] Pending Review 05/23/2024 05/23/2025 1 1 Encounter Details Date Type Department Care Team (Late st Contact Info) Description 05/30/2024 1:40 PM CDT Office Visit [address] [address] Lien Dao PA-C [address] [place], [place] [id number] Pre-existing type 2 diabetes mellitus in in first trimester (Primary Dx); Type 2 diabetes mellitus without complication, unspecified whether long-term insulin use (H); Encounter for supervision of normal in first trimester, unspecified Social History Tobacco Use Types Packs/Day Years Used Date Smoking Tobacco: Never Smokeless Tobacco: Never Tobacco Cessation:Counseling Given: Not Answered Comments Yes Sex and Gender Information Value Date Recorded Sex Assigned at Not on file Legal Sex Female 3:07 PM CDT Gender Identity Not on file Sexual Orientation Not on file documented as of this encounter Last Filed Vital Signs Vital Sign Reading [...] Mass Index 32.12 05/30/2024 2:01 PM CDT documented in this encounter Patient Instructions * Patient Instructions* Lien Dao PA-C - 05/30/2024 1:40 PM CDT TARGET BLOOD SUGARS: Fasting - 95 mg/dl 1 hr after meals - 145 mg/dl Try and write down your fasting numbers and the 1 hr after meal numbers for your upcoming dieticianappt. If you have any questions, please contact our office. Lien Gracia documented in this encounter Progress Notes * Toyin Burgos CMA - 05/30/2024 1:40 PM CDT Outcome for 05/29/24 10:34 AM: Left voice mail to bring in meter if checking blood glucose Toyin Burgos CMA Adult Endocrinology [facility] * Lien Dao PA-C - 05/30/2024 1:40 PM CDT Assessment/Plan : Type 2 DM and . We discussed the importance of tight glucose control throughout .Laura was worried about the safety of medication during and I reassured her that insulin is safe throughout the entire . We discussed the target fasting blood sugars and target post-prandial numbers. We will start her on 8 unit(s) of Lantus at night. We walked through the proper injection technique and a new prescription was sent to her pharmacy. We will also switch the sensor from the Dexcom G6 to the Dexcom G7. We gave her a sample sensor today and set up the ary on her new phone. I encouraged her to write down all fasting numbers along with the 1 hr post-prandial numbers,for her upcoming nutrition visit. She is not sure if the flea market seller will also help with medication, so I will place a CDE referral today, as well. We discussed this at length. If she has any questions, she is to contact our office. I will reach out to her on Sunday, to make sure that things are going well. I have independently reviewed and interpreted labs, imaging as indicated. Chief complaint: Lan is a 33 year old female who comes to our office for management of Type 2Diabetes and . I have reviewed Care Everywhere including [facility], [facility], [facility], [facility], [facility] , [facility], [place] lab reports, imaging reports and provider notes as indicated. HISTORY OF PRESENT ILLNESS Laura is currently about 12 wks gestation with her 6th child. She was originally diagnosed with diabetes a few years ago. She states that she did have gestational diabetes with her 3rd . She never needed medication and she was able to manage her blood sugars through diet during the . She was told that her blood sugars were stable with her 4th and 5th pregnancies. At the time of diagnosis, she reports that her hemoglobin A1C was over 12%. She was started on metformin and worked on diet and exercise. This helped but she did eventually need glipizide, as well. About a month ago, she had recently discovered she was , when she developed abdominal pain,spotting, and cramping. She went to the ER and was found to have a subchorionic hematoma but otherwise the exam was unremarkable. She was told to discontinued glipizide. She then reached out to her primary care provider and they told her to also discontinue metformin. She has been off all diabetes medications for a few weeks. She has been monitoring her blood sugars with the Dexcom G6. Laura has not had any issues with severe hyperglycemia and/or hypoglycemia. She does report that shefeels like her blood sugars have been higher. She is tired and has frequent sugar cravings. She recently got a new cell phone, so she has not been monitoring her blood sugars for the last few days. She has not had any problems with blurred vision or leg swelling. She does report that she had a lot of lower extremity edema with her last . She is being followed closely by an OB in [place]. She also has a flea market seller appt scheduled for Sunday. Endocrine relevant labs are as follows: Latest Reference Range & Units 05/30/24 13:47 Afinion Hemoglobin A1c POCT <=5.7 % 6.6 (H) (H): Data is abnormally high REVIEW OF SYSTEMS Endocrine: positive for diabetes and Skin: negative Eyes: negative for, visual blurring, redness, tearing Ears/Nose/Throat: negative Respiratory: No shortness of breath, dyspnea on exertion, cough, or hemoptysis Cardiovascular: negative for, chest pain, dyspnea on exertion, orthopnea, and exercise intolerance Gastrointestinal: negative for, nausea, vomiting, constipation, and diarrhea Genitourinary: negative for, nocturia, dysuria, frequency, and urgency Musculoskeletal: negative for, muscular weakness, nocturnal cramping, and foot pain Neurologic: negative for, local weakness, numbness or tingling of hands, and numbness or tingling of feet Psychiatric: negative Hematologic/Lymphatic/Immunologic: negative Past Medical History No past medical history on file. Medications Current Outpatient Medications Medication Sig Dispense Refill metFORMIN (GLUCOPHAGE XR) 500 MG 24 hr tablet Take 500 mg by mouth daily (with dinner). (Patient not taking: Reported on 05/30/2024) Allergies No Known Allergies Family History family history is not on file. Social History Social History Tobacco Use Smoking status: Never Smokeless tobacco: Never Physical Exam BP 114/69 (BP Location: Left arm, Patient Position: Sitting, Cuff Size: Adult Large) Pulse 64 Resp 16 Ht 1.651 m (5' 5) Wt 87.5 kg (193 lb) SpO2 99% BMI 32.12 kg/m?? Body mass index is 32.12 kg/m??. GENERAL : In no apparent distress. She is accompanied by her daughter SKIN: Normal color, normal temperature, texture. No hirsutism, alopecia or purple striae. EYES: PERRL, EOMI, No scleral icterus, No proptosis, conjunctival redness, stare, retraction NECK: No visible masses. No palpable adenopathy, or masses. No carotid bruits. THYROID: Normal, nontender, smooth / firm texture, no nodules, no Bruit RESP: Lungs clear to auscultation bilaterally CARDIAC: Regular rate and rhythm, normal S1 S2, without murmurs, rubs or gallops NEURO: awake, alert, responds appropriately to questions. Cranial nerves intact. Moves all extremities; Gait normal. No tremor of the outstretched hand. EXTREMITIES: No clubbing, cyanosis or edema. DATA REVIEW We are unable to upload her Dexcom information documented in this encounter Nursing Notes * Seamus Parks EMT - 05/30/2024 1:40 PM CDT Lan Serrano's goals for this visit include: Chief Complaint Patient presents with New Patient Diabetes GDM She requests these members of her care team be copied on today's visit information: yes PCP: No Ref-Primary, Physician Referring Provider: Referred Self, No address on file BP 114/69 (BP Location: Left arm, Patient Position: Sitting, Cuff Size: Adult Large) Pulse 64 Resp 16 Ht 1.651 m (5' 5) Wt 87.5 kg (193 lb) SpO2 99% BMI 32.12 kg/m?? Do you need any medication refills at today's visit? None DEVIN Winston documented in this encounter Plan of Treatment Upcoming Encounters Date Type Department Care Team (Late st Contact Info) Description 07/02/2024 1:40 PM JAMMER HOOKER Office Visit [facility] [address] [place] [address] Lien Dao PA-C [address] [place] [address] Scheduled Referrals Name Type Priority Associated Diagnoses Orde r Schedule Adult Diabetes Education Internal Grinder Set Up Operator Referral Referral Routine: Next available opening Pre-existing type 2 diabetes mellitus in in first trimester Expected: 06/01/2024 (Approximate), Expires: 05/30/2025 documented as of this encounter Procedures Procedure Name Priority Date/Time Associated Diagnosis Comments AFINION HEMOGLOBIN A1C POCT Routine 05/30/2024 1:47 PM CDT documented in this encounter Results * (ABNORMAL) AFINION HEMOGLOBIN A1C POCT [...] CDT 05/30/2024 2:08 PM CDT Lien SANCHEZ - [facility] POCT Final Result [facility] [place] [address], [place] [address], [place] [facility] [place] [address], [place] [address], [place] documented in this encounter Visit Diagnoses Diagnosis Pre-existing type 2 diabetes mellitus in in first trimester- Primary Diabetes mellitus of mother, complicating , childbirth, or the puerperium, unspecified as to episode of care Type 2 diabetes mellitus without complication, unspecified whether long-term insulin use (H) Encounter for supervision of normal in first trimester, unspecified documented in this encounter Care Teams Taxonomy Teacher Relationship Specialty Start Date End Date No Ref-Primary, Physician PCP - General 05/30/24 documented as of this encounter
--- OUTSIDE RECORDS SUMMARY | 2024-06-17 11:32 | XMS_ITS | Encounter Summary ---
Author Organization [facility] Address [address] [place] [address] Care Team Providers Care Disk Sharpener Name Role Phone Unavailable Primary Care Provider Unavailabl e Reason for Referral * Mental Health Outpatient (Routine: Next available opening) - Pending Review Specialty Diagnoses / Procedures Referred By Teofilo rob Referred To Contact Diagnoses Depression, unspecified Anxiety disorder, unspecified Ofelia Arrington [address] [address] Phone: tel: fax: Referral ID Status Reason Start Date Expiration Date V isits Requested Visits Authorized [id number] Pending Review 05/23/2024 05/23/2025 1 1 Question Answer Services: Psychotherapy/Counseling (non-medication) Reason for Referral: Individual Psychotherapy/Counseling Patient Scheduling Instructions: [facility] will call you to coordinate your care as prescribed by your provider. If you don't hear from a territory representative within 2 business days, please call . Only select yes if the patient has already been scheduled and requires a referral for insurance. If yes is selected, the referral will NOT route to scheduling for outreach. No Comments Referral Transcribed by external fax Provider: Ofelia Arrington PA-C affiliated with [facility] at [address] [place] [address]. [place]: No If yes was is the VA Authorization Number: Phone number: [phone] Fax number: [phone] Please be aware that coverage of these services is subject to the terms and limitations of your health insurance plan. Call member services at your health plan with any benefit or coverage questions. [facility] will call you to coordinate your care as prescribed by your provider. If you don't hear from a territory representative within 2 business days, please call . Encounter Details Date Type Department Care Team (Late st Contact Info) Description 05/23/2024 Transcribe Orders GENERIC EXTERNAL DATA DEPARTMENT Provider, Generic External Data Depression, unspecified (Primary Dx); Anxiety disorder, unspecified Social History Tobacco Use Types Packs/Day Years Used Date Smoking Tobacco: Never Assessed Comments Unknown Sex and Gender Information Value Date Recorded Sex Assigned at Not on file Legal Sex Female 3:07 PM CDT Gender Identity Not on file Sexual Orientation Not on file documented as of this encounter Plan of Treatment Upcoming Encounters Date Type Department Care Team (Late st Contact Info) Description 07/02/2024 1:40 PM TOOL INSPECTOR Office Visit [address] [address] Lien Dao PA-C [address] [place] [id number] Scheduled Referrals Name Type Priority Associated Diagnoses Orde r Schedule Adult Mental Health [place] Referral Referral Routine: Next available opening Depression, unspecified Anxiety disorder, unspecified Ordered: 05/23/2024 documented as of this encounter Visit Diagnoses Diagnosis Depression, unspecified- Primary Anxiety disorder, unspecified documented in this encounter
--- OUTSIDE RECORDS SUMMARY | 2024-06-17 11:32 | XMS_ITS | Clinical Summary ---
Author Organization [facility] Address [address] [place] [address] Care Team Providers Care Fireworks Display Specialist Name Role Phone No Ref-Primary, Physician Primary Care Provider Lien Dao PA-C Unavailable Allergies No known active allergies Medications metFORMIN [...] as directed. 100 each 2 4 Active Encounters Date Type Department Care Team Description 05/30/2024 1:40 PM CDT Office Visit [address] [place] [address] iLen Dao PA-C Pre-existing type 2 diabetes mellitus in in first trimester (Primary Dx); Type 2 diabetes mellitus without complication, unspecified whether terminal supervisor insulin use (H); Encounter for supervision of normal in first trimester, unspecified 05/30/2024 Travel 05/27/2024 Telephone [facility] [address] [place] [address] [phone] Lien Dao PA-C Clinic Care Coordination - Initial 05/23/2024 Transcribe Orders GENERIC EXTERNAL DATA DEPARTMENT Provider, Generic External Data Type 2 diabetes mellitus without complication, unspecified whether terminal supervisor insulin use (H) (Primary Dx); Encounter for supervision of normal in first trimester, unspecified 05/23/2024 Transcribe Orders GENERIC EXTERNAL DATA DEPARTMENT Provider, Generic External Data Depression, unspecified (Primary Dx); Anxiety disorder, unspecified 05/01/2024 Medical Correspondence [facility] Information Management [address] [place] [address] Scan, Non-Provider from Last 3 Months Social History Tobacco Use Types Packs/Day Years [...] st Contact Info) Description 07/02/2024 1:40 PM MOTEL FRONT DESK ATTENDANT Office Visit [facility] [address] [place] [address] [phone] Lien Dao PA-C [address] [place] [address] [phone] Health Maintenance Due Date Last Done Comments ADVANCE CARE PLANNING 1990 ANNUAL REVIEW OF HM ORDERS 1990 BMP 1990 DIABETIC FOOT EXAM 1990 EYE EXAM 1990 LIPID 1990 MICROALBUMIN 1990 YEARLY PREVENTIVE VISIT 1990 HIV SCREENING 2005 HEPATITIS C SCREENING 2008 PAP 06/02/2023 06/02/2020 PHQ-2 (once per calendar year) 2023 COVID-19 Vaccine ( season) 2024 09/14/2021, 07/20/2021 INFLUENZA VACCINE (#1) 2024 0, 06/10/2019, 07/28/2016, Additional history exists A1C 08/30/2024 05/30/2024 DTAP/TDAP/TD IMMUNIZATION (8 - Td or Tdap) 07/28/2026 07/28/2016, 10/20/2015, 08/12/2014, Additional history exists RSV VACCINE (1 - 1-dose 75+ series) 2065 HEPATITIS B IMMUNIZATION Completed 000, 09/21/1999, 08/18/1999 HPV IMMUNIZATION Completed 12/03/2014, , 01/08/2013, Additional history exists Pneumococcal Vaccine: Pediatrics (0 to 5 Years) and At-Risk Patients (6 to 64 Years) Completed 06/29/2023 MENINGITIS IMMUNIZATION Aged Out No l onger eligible based on patient's age to complete this topic RSV MONOCLONAL ANTIBODY Aged Out No l onger eligible based on patient's age to complete this topic Procedures Procedure Name Priority Date/Time Associated Diagnosis [...] PM CDT 05/30/2024 2:08 PM CDT Lien Dao PA-C [facility] PO[facility] Final Result [facility] - [address], [place] [address], [facility] [place] [address], [place] [address], [facility] from Last 3 Months Care Teams Fireworks Display Specialist Relationship Specialty Start Date End Date No Ref-Primary, Physician PCP - General 05/30/24 Lien Dao PA-C [address] [place] [id number] Assigned Endocrinology Provider 06/04/24
--- OUTSIDE RECORDS SUMMARY | 2024-06-17 11:32 | XMS_ITS | Encounter Summary ---
Author Organization [facility] Address [address] [place] [address] Care Team Providers Care Production Sorter Name Role Phone Unavailable Primary Care Provider Unavailabl e Reason for Referral * Consultation (Routine) - Pending Review Specialty Diagnoses / Procedures Referred By Contbrittany t Referred To Contact Endocrinology, Diabetes, and Metabolism Diagnoses Type 2 diabetes mellitus without complication, unspecified whether buttermaker continuous churn insulin use (H) Encounter for supervision of normal in first trimester, unspecified Ofelia Arrington [address] [place] [address] Phone: tel: fax: Referral ID Status Reason Start Date Expiration Date V isits Requested Visits Authorized [id number] Pending Review 05/23/2024 05/23/2025 1 1 Question Answer Reason for Referral: Diabetes Diabetes State: Gestational Scheduling Instructions: [employer] will call you to coordinate your care as prescribed by the provider. If you don? t hear from a brand representative within 2 business days, please call [phone]. Comments Referral Transcribed by external fax Provider: TY Arrington affiliated with [facility] and clinic at [address] [place] [address]. [place]: No If yes was is the [place] Authorization Number: Phone number: [phone] Fax number: [phone] Please be aware that coverage of these services is subject to the terms and limitations of your health insurance plan. Call member services at your health plan with any benefit or coverage questions. [employer] will call you to coordinate your care as prescribed by the provider. If you don? t hear from a brand representative within 2 business days, please call [phone]. Encounter Details Date Type Department Care Team (Late st Contact Info) Description 05/23/2024 Transcribe Orders GENERIC EXTERNAL DATA DEPARTMENT Provider, Generic External Data Type 2 diabetes mellitus without complication, unspecified whether buttermaker continuous churn insulin use (H) (Primary Dx); Encounter for [...] st Contact Info) Description 07/02/2024 1:40 PM POTATO PEELER Office Visit [address] [phone] Lien Dao PA-C [address] [place] [address] [phone] Scheduled Referrals Name Type Priority Associated Diagnoses Orde r Schedule Adult Endocrinology Wireless Store Manager Referral Referral Routine Type 2 diabetes mellitus without complication, unspecified whether buttermaker continuous churn insulin use (H) Encounter for supervision of normal in first trimester, unspecified Expected: 05/23/2024 (Approximate), Expires: 05/23/2025 documented as of this encounter Visit Diagnoses Diagnosis Type 2 diabetes mellitus without complication, unspecified whether correction insulin use (H)- Primary Encounter for supervision of normal in first trimester, unspecified documented in this encounter
--- OUTSIDE RECORDS SUMMARY | 2024-06-17 11:32 | XMS_ITS | Encounter Summary ---
Author Organization [facility] Address [address] [place] [address] Care Team Providers Care Inventory Administrator Name Role Phone No Ref-Primary, Physician Primary Care Provider Encounter Details Date Type Department Care Team (Latest Contact Info) Description 05/30/2024 Travel Social History Tobacco Use Types Packs/Day Years Used Date Smoking Tobacco: Never Smokeless Tobacco: Never Comments Yes Sex and Gender Information Value Date Recorded Sex Assigned at Not on file Legal Sex Female 3:07 PM CDT Gender Identity Not on file Sexual Orientation Not on file documented as of this encounter Plan of Treatment Upcoming Encounters Date Type Department Care Team (Late st Contact Info) Description 07/02/2024 1:40 PM INSTRUCTOR WEAVING Office Visit [address] [address] Lien Dao PA-C [address] [place] [address] documented as of this encounter Visit Diagnoses Not on filedocumented in this encounter Care Teams Inventory Administrator Relationship Specialty Start Date End Date No Ref-Primary, Physician PCP - General 05/30/24 documented as of this encounter
--- OUTSIDE RECORDS SUMMARY | 2024-06-17 11:32 | XMS_ITS | Encounter Summary ---
Author Organization [address] [address] Care Team Providers Care Movie Operator Name Role Phone Unavailable Primary Care Provider Unavailabl e Reason for Visit * Reason Onset Date Comments Clinic Care Coordination - Initial 05/27/2024 Encounter Details Date Type Department Care Team ([facility] st Contact Info) Description 05/27/[address] [address] Lien Dao PA-C [address] [place] [address] [phone] Clinic Care Coordination - Initial Social History Tobacco Use Types Packs/Day Years Used Date Smoking Tobacco: Never Assessed Comments Unknown Sex and Gender Information Value Date Recorded Sex Assigned at Not on file Legal Sex Female 3:07 PM CDT Gender Identity Not on file Sexual Orientation Not on file documented as of this encounter Miscellaneous Notes * Telephone Encounter - Trang Karimi - 05/27/2024 10:58 AM CDT Images from the original note were not included. Patient confirmed scheduled appointment: Date: 05/30 Time: 2:00 Visit type: new GDM Provider: Feliberto Location: [facility] Testing/imaging: Additional notes: Spoke with patient and gave address for clinic Zayda Koenig, RN P Clinic [id number] Please schedule NEW within one week RICK Easley or RICK JARAMILLO pulmonary fellow Trang Karimi on 05/27/2024 at 10:59 AM documented in this encounter Plan of Treatment Upcoming Encounters Date Type Department Care Team (Late st Contact Info) Description 07/02/2024 1:40 PM MAGISTRATE JUDGE Office Visit [address] [address] Lien Dao PA-C [address] [place] [address] documented as of this encounter Visit Diagnoses Not on filedocumented in this encounter
--- OUTSIDE RECORDS SUMMARY | 2024-06-17 11:33 | XMS_ITS | Clinical Summary ---
Author Organization [facility] [employer] [facility] Address [place], [place] [address] Care Team Providers Care Terra Cotta Mason Name Role Phone Pcp, No Primary Care Provider UnavailEliud Flowers Unavailable [phone] Nonstaff, Doctor Unavailable Unavailable Allergies No [...] CDT - 04/28/2024 8:12 AM CDT Emergency [address] [address] Anthony Suero MD Peterson, Gustabo Garcia MD Abdominal pain affecting (Primary Dx); Subchorionic hematoma in first trimester, single or unspecified fetus; Ovarian cyst affecting in first trimester, antepartum Discharge Disposition: Home Self Care 04/28/2024 Travel from Last 3 Months Immunizations Name Administration Dates Next Due COVID-19 vaccine ([employer] 30mcg/0.3mL) PF, MDV 09/14/2021,07/20/2021 DTaP 03/21/2000,09/21/1999,08/18/1999 [...] 1 02/27/2024 Social Connections Answer Date Recorded Do you often feel lonely or isolated from those around you? 4 02/25/2024 Alcohol Use Answer Date Recorded [...] 1 02/25/2024 Food Insecurity Answer Date Recorded Do you worry your food will run out before you are able to buy more? 2 02/25/2024 Transportation Needs Answer Date Record ed Does lack of transportation keep you from medica l appointments? 1 02/25/2024 Does lack of transportation keep you from work, meetings or getting things that you need? 1 02/25/2024 Housing Stability Answer Date Recorded What is your housing situation today? 1 02/25/2024 Estimated Date of Delivery Comme nts Yes 12/08/2024 Sex and Gender Information Value Date Recorded Sex Assigned at Not on file Gender Identity Not on file Sexual Orientation Not on file Obstetrics History Para Term AB IAB SAB Ectopic Multiple Livin g Live Births 6 5 4 1 0 0 0 0 0 5 5 Date Outcome GA Total Labor Labor/2nd/3rd Weight Sex Type Anes PTL Vicky A1 [...] None Livin g 9 9 Complications:None Delivery Location:[facility] 2016 35w 6d 2.92 kg (6 lb 7 oz) F Vag None Livin g 9 10 GORDON BARRY ,BG ALVERTO Coyle Delivery Location:[facility] Current Last Filed Vital Signs Vital Sign [...] 21-65 06/02/2023 06/02/2020, 2019 COVID-19 vaccine series (2023- season) 2024 09/14/2021, 07/20/2021 Influenza for age 9-49 04/13/2024 0, 06/10/2019, 07/28/2016, Additional history exists Depression screening for age 12+ 02/26/2025 02/27/20 24, 02/25/2024 Tetanus booster 07/28/2026 07/28/2016, 0 04/2016, 08/12/2014, Additional history exists Tdap Completed 07/28/2016, 0 04/2016, 08/12/2014, Additional history exists RSV vaccine [...] ULTRASOUND TA Routine 04/28/2024 5:34 AM CDT [employer]ONE [employer]AD LINEMAN THIN PREP PAP DIAGNOSTIC IMAGED Routine 06/02/2020 2:36 PM CDT from Last 3 Months or Most Recently Relevant to Health Maintenance Results * SCAN-RADIOLOGY REPORT (04/28/2024 7:50 AM CDT) Anatomical Region Laterality Modality Other Scanner OTHER * (ABNORMAL) UA W/ SEDIMENT EXAM REFLEXED PER CRITERIA (04/28/2024 6:25 AM CDT) COLOR Yellow Yellow Color 04/28/2024 6:48 AM T [facility] CLARITY Clear Clear Clarity 04/28/2024 6:48 AM T [facility] SPECIFIC GRAVITY,URINE >=1.030(A) 1.010, 1.015, 1.020, 1.025 04/28/2024 6:48 AM T [facility] PH,URINE 6.0 6.0, 7.0, 8.0, 5.5, 6.5, 7.5, 8.5 04/28/2024 6:48 AM T [facility] UROBILINOGEN, QUALITATIVE Normal Normal EU/dl 04/28/2024 6:48 AM [facility] PROTEIN, URINE Negative Negative mg/dL 04/28/2024 6:48 AM T [facility] GLUCOSE, URINE Negative Negative mg/dL 04/28/2024 6:48 AM [facility] KETONES,URINE Negative Negative mg/dL 04/28/2024 6:48 AM [facility] BILIRUBIN,URI NE Negative Negative 04/28/2024 6:48 AM [facility] OCCULT BLOOD,URINE Negative Negative 04/28/2024 6:48 AM [facility] NITRITE Negative Negative 04/28/2024 6:48 AM [facility] LEUKOCYTE ESTERASE Negative Negative 04/28/2024 6:48 AM [facility] Urine URINE SPECIMEN / Unknown Non-Blood / Unknown 04/28/2024 6:25 AM CDT 04/28/2024 6:45 AM CDT Anthony Suero MD URINE [facility] [address] [address] * (ABNORMAL) CBC WITH AUTO DIFFERENTIAL (04/28/2024 6:15 AM CDT) WHITE BLOOD COUNT 8.2 4.5 - 11.0 thou/cu mm 04/28/2024 6:33 AM [facility] RED BLOOD COUNT 4.05 4.00 - 5.20 mil/cu mm 04/28/2024 6:33 AM [facility] HEMOGLOBIN 11.6(L) 12.0 - 16.0 g/dL 04/28/2024 6:33 AM [facility] HEMATOCRIT 36.6 33.0 - 51.0 % 04/28/2024 6:33 AM [facility] MCV 90 80 - 100 fL 04/28/2024 6:33 AM [facility] MCH 28.6 26.0 - 34.0 pg 04/28/2024 6:33 AM [facility] MCHC 31.7(L) 32.0 - 36.0 g/dL 04/28/2024 6:33 AM [facility] RDW 13.0 11.5 - 15.5 % 04/28/2024 6:33 AM [facility] PLATELET COUNT 235 140 - 440 thou/cu mm 04/28/2024 6:33 AM [facility] MPV 10.8 6.5 - 11.0 fL 04/28/2024 6:33 AM [facility] % NEUT 69.6 % 04/28/2024 6:33 AM [facility] % LYMPH 23.5 % 04/28/2024 6:33 AM [facility] % MONO 5.2 % 04/28/2024 6:33 AM [facility] % EOS 1.6 % 04/28/2024 6:33 AM [facility] % BASO 0.1 % 04/28/2024 6:33 AM [facility] ABSOLUTE NEUTROPHILS 5.7 1.7 - 7.0 thou/cu mm 04/28/2024 6:33 AM [facility] ABSOLUTE LYMPHOCYTES 1.9 0.9 - 2.9 thou/cu mm 04/28/2024 6:33 AM [facility] ABSOLUTE MONOCYTES 0.4 <0.9 thou/cu mm 04/28/2024 6:33 AM CDT [facility] ABSOLUTE EOSINOPHILS 0.1 <0.5 thou/cu mm 04/28/2024 6:33 AM CDT [facility] ABSOLUTE BASOPHILS 0.0 <0.3 thou/cu mm 04/28/2024 6:33 AM CDT [facility] Blood BLOOD SPECIMEN / Unknown Butterfly / Unknown 04/28/2024 6:15 AM CDT 04/28/2024 6:23 AM CDT Anthony Suero MD HEMATOLOGY [facility] [address] [address] * TYPE AND SCREEN ONLY (04/28/2024 6:15 AM CDT) ABORH O Rh Positive 04/28/2024 7:09 AM CDT [facility] BLOOD BANK ANTIBODY SCREEN Negative Negative 04/28/2024 7:09 AM [facility] BLOOD BANK SPECIMEN EXPIRATION DATE/TIME 05/01/24 23:59 04/28/2024 7:09 AM [facility] BLOOD BANK Blood BLOOD SPECIMEN / Unknown Butterfly / Unknown 04/28/2024 6:15 AM CDT 04/28/2024 6:23 AM CDT Anthony Suero MD BLOOD BANK Performing Organization Address City/[facility]/ZIP Co de Phone Number [facility] BLOOD BANK [address] [address] * HCG BETA QUANT, (04/28/2024 6:15 AM CDT) HCG BETA QUANT,PREGNANC Y 31,505 mIU/mL 04/28/2024 7:17 AM CDT [facility] Blood BLOOD SPECIMEN / Unknown Butterfly / Unknown 04/28/2024 6:15 AM CDT 04/28/2024 6:23 [facility] 04/28/2024 7:17 AM CDT Expected Value [...] prior to retesting. Anthony Suero MD CHEMISTRY [facility] [address] [address] * (ABNORMAL) HEPATIC FUNCTION PANEL (04/28/2024 6:15 AM CDT) ALBUMIN 3.9(L) 4.0 - 4.9 g/dL 04/28/2024 7:08 AM [facility] PROTEIN,TOTAL 6.5 6.0 - 8.0 g/dL 04/28/2024 7:08 AM [facility] BILIRUBIN,TOTAL 0.4 0.0 - 1.2 mg/dL 04/28/2024 7:08 AM [facility] BILIRUBIN,DIRECT 0.2 0.0 - 0.2 mg/dL 04/28/2024 7:08 AM [facility] BILIRUBIN,INDIRE CT 0.2 0.2 - 0.8 mg/dL 04/28/2024 7:08 AM [facility] ALK PHOSPHATASE 71 35 - 104 IU/L 04/28/2024 7:08 AM [facility] ALT (SGPT) 7(L) 10 - 35 IU/L 04/28/2024 7:08 AM [facility] AST (SGOT) 16 10 - 35 IU/L 04/28/2024 7:08 AM [facility] Blood BLOOD SPECIMEN / Unknown Butterfly / Unknown 04/28/2024 6:15 AM CDT 04/28/2024 6:23 AM T Anthony Suero MD CHEMISTRY [facility] [address] [address] * (ABNORMAL) BASIC METABOLIC PANEL (04/28/2024 6:15 AM T) SODIUM 137 136 - 145 mmol/L 04/28/2024 6:48 AM [facility] POTASSIUM 3.7 3.5 - 5.1 mmol/L 04/28/2024 6:48 AM [facility] CHLORIDE 105 98 - 107 mmol/L 04/28/2024 6:48 AM [facility] CO2,TOTAL 21(L) 22 - 29 mmol/L 04/28/2024 6:48 AM [facility] ANION GAP 11 5 - 18 04/28/2024 6:48 AM [facility] GLUCOSE 143(H) 70 - 99 mg/dL 04/28/2024 6:48 AM [facility] CALCIUM 8.6 8.6 - 10.0 mg/dL 04/28/2024 6:48 AM [facility] BUN 9 6 - 20 mg/dL 04/28/2024 6:48 AM [facility] CREATININE 0.60 0.50 - 0.90 mg/dL 04/28/2024 6:48 AM [facility] BUN/CREAT RATIO 15 10 - 20 6:48 AM CDT [facility] eGFR >90 >90 mL/min/1.7 3m2 04/28/2024 6:48 AM CDT [facility] Comment:As of 2021, eG FR is calculated by the CKD-EPI creatinine equation without race adjustment. ??eGFR can be influenced by muscle mass, exercise, and diet. ??The reported eGFR is an estimation only and is only applicable if the renal function is stable. Blood BLOOD SPECIMEN / Unknown Butterfly / Unknown 04/28/2024 6:15 AM CDT 04/28/2024 6:23 AM CDT Anthony Suero MD CHEMISTRY [facility] [address] [address] * [employer]ONE [employer] LINEMAN THIN PREP PAP DIAGNOSTIC IMAGED (06/02/2020 2:36 PM CDT) Case Report Gynecologic Cytology Report ? Case: [id number] ? Authorizing Provider: ??Lydia Hua NP ? Collected: ? 06/02/2020 1436 ? Ordering Location: ? [facility] ?Received: ?06/04/2020 0912 ? First Screen: ?Daniela Collins ? Rescreen: ?Anushka Amado ? Specimen: ?LONE LEAD LINEMAN ThinPrep Vial Diagnostic, Cervical ? 06/10/2020 1:19 PM CDT [facility] INTERPRETATION/ RESULT NEGATIVE FOR INTRAEPITHELIAL LESION OR MALIGNANCY (NIL) (none) 06/10/2020 1:19 PM T [facility] IMEN ADEQUACY Satisfactory for evaluation Endocervical component present 06/10/2020 1:19 PM CDT [facility] HPV REQUEST HPV and PAP 06/10/2020 1:19 PM CDT [facility] Last Pap Result First Pap/Unknown 1:19 PM CDT [facility] [place] Bx Done Today No 06/10/2020 1:19 PM T [facility] Additional Information 06/10/2020 1:19 PM T [facility] Comment: Interpreted at [facility] Central Laboratory - [address], [place] [address] Automated Review Successful 06/10/2020 1:19 PM T [facility] Comment:Specimen processed s uccessfully by automated automatic data processing planner device, ThinPrep Imaging System, [employer] ANCILLARY TESTING [employer]ONE LEAD LINEMAN HPV Ordered, Please see separate report 06/10/2020 1:19 PM T [facility] Note The pap test is [...] and malignant lesions. 06/10/2020 1:19 PM CDT [facility] Other (Cervical) 06/02/2020 2:36 PM CDT 06/04/2020 9:12 AM CDT Lydia Hua NP PATHOLOGY/CYTOLOGY [facility] [address] [place] [address], [place] from Last 3 Months or Most [...] 7:00 AM 03/11/2014 4:12 PM Care Teams Terra Cotta Mason Relationship Specialty Start Date End Date Pcp, No . PCP - General 12/06/22 Eliud Morgan PA . Physician Garnett Machine Operator Helper 12/06/22 Nonstaff, Doctor NON STAFF DOCTOR 12/26/13
--- OUTSIDE RECORDS SUMMARY | 2024-06-17 11:33 | XMS_ITS | Encounter Summary ---
Author Organization [facility] Address [address] [place] [address] Care Team Providers Care Community Program Assistant Name Role Phone Sarita French MD Primary Care Provider [phone] No Ref-Primary, Physician Primary Care Provider Encounter Details Date Type Department Care Team ([facility] Contact Info) Description 05/01/2024 Medical Correspondence [facility] Information Management [address] [facility] [address] [place] [address] Scan, Non-Provider Social History Tobacco Use Types Packs/Day Years Used Date Smoking Tobacco: Never Assessed Comments Unknown Sex and Gender Information Value Date Recorded Sex Assigned at Not on file Legal Sex Female 3:07 PM CDT Gender Identity Not on file Sexual Orientation Not on file documented as of this encounter Plan of Treatment Upcoming Encounters Date Type Department Care Team ([facility] Contact Info) Description 07/02/2024 1:40 PM HOME SPECIALIST Office Visit [address] [address] Lien Dao PA-C [address] [place] [address] documented as of this encounter Visit Diagnoses Not on filedocumented in this encounter Care Teams Community Program Assistant Relationship Specialty Start Date End Date Sarita French MD [address] [place] [address] F282/2A [place], [place] [id number] PCP - General Psychiatry 05/26/24 05/26/24 No Ref-Primary, Physician PCP - General 05/30/24 documented as of this encounter
[2024-06-17 15:24] LABS: Chlamydia DNA Amplified* NOT DETECTED (No Detected); GC DNA Amplified* NOT DETECTED (No Detected)
== END 2024-06-17 11:29 | disposition home or self-care (01) ==
PROVIDERS: PCP Nurse Practitioner Family; Visit Provider Obstetrics & Gynecology
DX: R10.2 Pelvic and perineal pain (principal); Z11.3 Encounter for screening for infections with a predominantly sexual mode of transmission
CPT/HCPCS: 87086; 87491; 87591

== ENCOUNTER 2024-07-02 12:00 | Outpatient (CLI) | payer MEDICAID, SELFPAY ==
--- OUTSIDE RECORDS SUMMARY | 2024-07-02 12:03 | XMS_ITS | Encounter Summary ---
Author Organization [place] Address [address] [place] [address] Care Team Providers Care Medical Case Worker Name Role Phone No Ref-Primary, Physician Primary Care Provider Lien Dao PA-C Unavailable Reason for Visit * Reason Onset Date Comments Glucose 07/02/2024 Called patient t o obtain dexcom data for todays visit. Encounter Details Date Type Department Care Team ([facility] Contact Info) Description 07/02/[address] [address] Lien Dao PA-C [address] [place] [address] Glucose (Called patient to obtain dexcom data for todays visit. ) Social History Tobacco Use Types Packs/Day Years Used Date Smoking Tobacco: Never Smokeless Tobacco: Never Comments Yes Sex and Gender Information Value Date Recorded Sex Assigned at Not on file Legal Sex Female 3:07 PM CDT Gender Identity Not on file Sexual Orientation Not on file documented as of this encounter Miscellaneous Notes * Telephone Encounter - Vishnu Cardona - 07/02/2024 10:22 AM CST Spoke to patient who states her sensors are causing soreness and she has not been wearing them. Vishnu Cardona on 07/02/2024 at 10:23 AM K UNLOADER TENDER documented in this encounter Plan of Treatment Upcoming Encounters Date Type Department Care Team (Late st Contact Info) Description 07/02/2024 2:00 PM BRICK UNLOADER TENDER Virtual Visit [address] [address] Lien Dao PA-C [address] [place], [place] [phone] documented as of this encounter Visit Diagnoses Not on filedocumented in this encounter Care Teams Medical Case Worker Relationship Specialty Start Date End Date No Ref-Primary, Physician PCP - General 05/30/24 Lien Dao PA-C [address] [place], [place] [phone] Assigned Endocrinology Provider 06/04/24 documented as of this encounter
--- OUTSIDE RECORDS SUMMARY | 2024-07-02 12:03 | XMS_ITS | Encounter Summary ---
Author Organization [place] Address [address] [place] [address] Care Team Providers Care Part Maker Name Role Phone No Ref-Primary, Physician Primary Care Provider Lien Dao PA-C Unavailable Reason for Visit * Reason Onset Date Comments Appointment 06/30/2024 Virtual visit Encounter Details Date Type [facility] Description 06/30/[address] [address] Lien Dao PA-C [address] [place] [address] Appointment (Virtual visit 07/02) Social History Tobacco Use Types Packs/Day Years Used Date Smoking Tobacco: Never Smokeless Tobacco: Never Comments Yes Sex and Gender Information Value Date Recorded Sex Assigned at Not on file Legal Sex Female 3:07 PM CDT Gender Identity Not on file Sexual Orientation Not on file documented as of this encounter Miscellaneous Notes * Telephone Encounter - Rachel Rolle CMA - 06/30/2024 2:41 PM SALESPERSON PETS AND PET SUPPLIES Spoke with patient. Pt is unable to keep appt on 07/02/24. Pt states she has an OB appt at the sametime. Pt states she needs to reschedule. Pt would like a call pt back to reschedule appt. Rachel Rolle CMA on 06/30/2024 at 2:42 PM SPERSON PETS AND PET SUPPLIES documented in this encounter Plan of Treatment Upcoming Encounters Date Type Department Care Team (Late st Contact Info) Description 07/02/2024 2:00 PM SALESPERSON PETS AND PET SUPPLIES Virtual Visit [address] [phone] Lien Dao PA-C [address] [place], [place] [phone] documented as of this encounter Visit Diagnoses Not on filedocumented in this encounter Care Teams Part Maker Relationship Specialty Start Date End Date No Ref-Primary, Physician PCP - General 05/30/24 Lien Dao PA-C [address] [place], [place] [phone] Assigned Endocrinology Provider 06/04/24 documented as of this encounter
--- OUTSIDE RECORDS SUMMARY | 2024-07-02 12:03 | XMS_ITS | Clinical Summary ---
Author Organization [place] Address [address] [place] [address] Care Team Providers Care Mower Sharpener Name Role Phone No Ref-Primary, Physician Primary [...] Encounters Date Type Department Care Team Description 07/02/[address] [address] Lien Dao PA-C Glucose (Called patient to obtain dexcom data for todays visit. ) 06/30/[address] [facility] [id number] [place] [phone] Feliberto, Lien, PA-C Appointment (Virtual visit 07/02) 05/30/2024 1:40 PM CDT Office Visit [facility] [address] [place] [phone] Lien Dao PA-C Pre-existing type 2 diabetes mellitus in in first trimester (Primary Dx); Type 2 diabetes mellitus without complication, unspecified whether prison insulin use (H); Encounter for supervision of normal in first trimester, unspecified 05/30/2024 Travel 05/27/[address] [facility] [address] [place] [address] Lien Dao PA-C Clinic Care Coordination - Initial 05/23/2024 Transcribe Orders GENERIC EXTERNAL DATA DEPARTMENT Provider, Generic External Data Type 2 diabetes mellitus without complication, unspecified whether regional telecommunications specialist insulin use (H) (Primary Dx); Encounter for supervision of normal in first trimester, unspecified 05/23/2024 Transcribe Orders GENERIC EXTERNAL DATA DEPARTMENT Provider, Generic External Data Depression, unspecified (Primary Dx); Anxiety disorder, unspecified 05/01/2024 Medical Correspondence [facility] Information Management [address] [phone] Scan, Non-Provider from Last 3 Months Social [...] st Contact Info) Description 07/02/2024 2:00 PM DRY WALL INSTALLATIONS MECHANIC Virtual Visit [address] [address] Lien Dao PA-C [address] [place] [address] Health Maintenance Due Date Last Done Comments ADVANCE CARE PLANNING 1990 ANNUAL REVIEW OF HM ORDERS 1990 BMP 1990 DIABETIC FOOT EXAM 1990 EYE EXAM 1990 LIPID 1990 MICROALBUMIN 1990 YEARLY PREVENTIVE VISIT 1990 HIV SCREENING 2005 HEPATITIS C SCREENING 2008 PAP 06/02/2023 06/02/2020 PHQ-2 (once per calendar year) 2023 COVID-19 Vaccine ( season) 2024 09/14/2021, 07/20/2021 A1C 08/30/2024 05/30/2024 DTAP/TDAP/TD IMMUNIZATION (8 - Td or Tdap) 07/28/2026 07/28/2016, 10/20/2015, 08/12/2014, Additional history exists RSV VACCINE (1 - 1-dose 75+ series) 2065 HEPATITIS B IMMUNIZATION Completed 000, 09/21/1999, 08/18/1999 HPV IMMUNIZATION Completed 12/03/2014, , 01/08/2013, Additional history exists Pneumococcal Vaccine: Pediatrics (0 to 5 Years) and At-Risk Patients (6 to 64 Years) Completed 06/29/2023 INFLUENZA VACCINE Completed 06/17/2024, , 06/10/2019, Additional history exists MENINGITIS IMMUNIZATION Aged Out No l onger [...] LABORATORY POC Comment: Normal <5.7% Prediabetes 5.7-6.4% Diabetes 6.5% or higher Note: Adopted from ADA consensus guidelines. Blood, Capillary BLOOD SPECIMEN / Unknown 05/30/2024 1:47 PM CDT 05/30/2024 2:08 PM CDT Lien SANCHEZ - BEAKER POCT Final Result MG LABORATORY POC [facility] [address] Lab, [place] [address], [facility] MG LABORATORY [facility] - [address] Lab, [place] [address], [facility] from Last 3 Months Care Teams Mower Sharpener Relationship Specialty Start Date End Date No Ref-Primary, Physician PCP - General 05/30/24 Lien Dao PA-C [address] [place] [address] Assigned Endocrinology Provider 06/04/24
--- OUTSIDE RECORDS SUMMARY | 2024-07-02 12:03 | XMS_ITS | Encounter Summary ---
Author Organization [place] Address [address] [place] [address] Care Team Providers Care Business Supervisor Name Role Phone Unavailable Primary Care Provider Unavailabl e Reason for Referral * Consultation (Routine) - Pending Review Specialty Diagnoses / Procedures Referred By Teofilo t Referred To Contact Endocrinology, Diabetes, and Metabolism Diagnoses Type 2 diabetes mellitus without complication, unspecified whether shelter insulin use (H) Encounter for supervision of normal in first trimester, unspecified Ofelia Arrington Phone: tel: fax: Referral ID Status Reason Start Date Expiration Date V isits Requested Visits Authorized [id number] Pending Review 05/23/2024 05/23/2025 1 1 Question Answer Reason for Referral: Diabetes Diabetes State: Gestational Scheduling Instructions: [email or web address] will call you to coordinate your care as prescribed by the provider. If you don t hear from a shared services representative within 2 business days, please call [phone]. Comments Referral Transcribed by external fax Provider: TY Arrington affiliated with [facility] and clinic at [address] [place] [address]. VA: No If yes was is the VA Authorization Number: Phone number: [phone] Fax number: [phone] Please be aware that coverage of these services is subject to the terms and limitations of your health insurance plan. Call member services at your health plan with any benefit or coverage questions. [facility] will call you to coordinate your care as prescribed by the provider. If you don t hear from a shared services representative within 2 business days, please call [phone]. Encounter Details Date Type Department Care Team (Late st Contact Info) Description 05/23/2024 Transcribe Orders GENERIC EXTERNAL DATA DEPARTMENT Provider, Generic External Data Type 2 diabetes mellitus without complication, unspecified whether shelter insulin use (H) (Primary Dx); Encounter for [...] st Contact Info) Description 07/02/2024 2:00 PM CLOTHES DRIER ASSEMBLER Virtual Visit [address] [address] Lien Dao PA-C [address] [place] [address] Scheduled Referrals Name Type Priority Associated Diagnoses Orde r Schedule Adult Endocrinology Double Ending Machine Operator Referral Referral Routine Type 2 diabetes mellitus without complication, unspecified whether shelter insulin use (H) Encounter for supervision of normal in first trimester, unspecified Expected: 05/23/2024 (Approximate), Expires: 05/23/2025 documented as of this encounter Visit Diagnoses Diagnosis Type 2 diabetes mellitus without complication, unspecified whether biologics specialist insulin use (H)- Primary Encounter for supervision of normal in first trimester, unspecified documented in this encounter
--- OUTSIDE RECORDS SUMMARY | 2024-07-02 12:03 | XMS_ITS | Encounter Summary ---
Author Organization [place] Address [address] [place] [address] Care Team Providers Care Residence Leasing Agent Name Role Phone No Ref-Primary, Physician Primary [...] st Contact Info) Description 07/02/2024 2:00 PM RELIABILITY SPECIALIST Virtual Visit [address] [address] Lien Dao PA-C [address] [place] [address] documented as of this encounter Visit Diagnoses Not on filedocumented in this encounter Care Teams Residence Leasing Agent Relationship Specialty Start Date End Date No Ref-Primary, Physician PCP - General 05/30/24 documented as of this encounter
--- OUTSIDE RECORDS SUMMARY | 2024-07-02 12:03 | XMS_ITS | Encounter Summary ---
Author Organization [place] Address [address] [place] [address] Care Team Providers Care Finance Administrator Name Role Phone No Ref-Primary, Physician Primary Care Provider Reason for Referral * Consultation (Routine: Next available opening) - Pending Review Specialty Diagnoses / Procedures Referred By Teofilo t Referred To Contact Diabetes Education Diagnoses Pre-existing type 2 diabetes mellitus in in first trimester Lien Dao PA-C [address] [place] [address] Phone: tel: fax: Referral ID Status Reason Start Date Expiration Date V isits Requested Visits Authorized [id number] Pending Review 06/01/2024 06/01/2025 1 1 Question [...] Needs: None, Additional Insulin Training Scheduling Instructions: [facility] will call you to coordinate your care as prescribed by your provider. If you don't hear from a outbound telemarketing representative within 2 business days, please call [...] and G0109) and Medical Nutrition Therapy (Codes 80994 and 83033) benefits and ask which blood glucose monitor brands are covered by your plan. Please bring the following with you to your appointment: 1. List of current medications 2. List of Blood Glucose Monitor brands that are covered by your insurance plan 3. Blood Glucose Monitor and log book 4. Food records for the 3 days prior to your visit [facility] will call you to coordinate your care as prescribed by your provider. If you don't hear from a outbound telemarketing representative within 2 business days, please call Reason for Visit * Reason Comments New Patient Diabetes GDM * Consultation (Routine) - Pending Review Specialty Diagnoses / Procedures Referred By Contac t Referred To Contact Endocrinology, Diabetes, and Metabolism Diagnoses Type 2 diabetes mellitus without complication, unspecified whether custodial insulin use (H) Encounter for supervision of normal in first trimester, unspecified November Phone: tel: fax: Referral ID Status Reason Start Date Expiration Date V isits Requested Visits Authorized [id number] Pending Review 05/23/2024 05/23/2025 1 1 Encounter Details Date Type Department Care Team (Late st Contact Info) Description 05/30/2024 1:40 PM CDT Office Visit [address] [address] Lien Dao PA-C [address] [place], [place] [phone] Pre-existing type 2 diabetes mellitus in in first trimester (Primary Dx); Type 2 diabetes mellitus without complication, unspecified whether education finance processor insulin use (H); Encounter for supervision of [...] blood glucose Toyin Burgos CMA Adult Endocrinology [facility] * Lien Dao PA-C - 05/30/2024 1:40 [...] visit. She is not sure if the instructional writer will also help with medication, so I [...] . I have reviewed Care Everywhere including [facility], [facility], [facility], [facility] , [facility], [facility] lab reports, imaging reports and provider notes [...] being followed closely by an OB in [place]. She also has a instructional writer appt scheduled for Sunday. Endocrine relevant labs [...] st Contact Info) Description 07/02/2024 2:00 PM PHOTOGRAPH DEVELOPER Virtual Visit [address] [place] [address] Lien Dao PA-C [address] [place] [address] Scheduled Referrals Name Type Priority Associated Diagnoses Orde r Schedule Adult Diabetes Education Auto Washer Referral Referral Routine: Next available opening Pre-existing [...] POC [facility] [id number] [place] [address] N Lab, [place] [address], [facility] MG LABORATORY [facility] [place] [address] [place] [address] N Lab, [place] [address], [facility] documented in this encounter Visit Diagnoses Diagnosis Pre-existing type 2 diabetes mellitus in in first trimester- Primary Diabetes mellitus of mother, complicating , childbirth, or the puerperium, unspecified as to episode of care Type 2 diabetes mellitus without complication, unspecified whether education finance processor insulin use (H) Encounter for supervision of normal in first trimester, unspecified documented in this encounter Care Teams Finance Administrator Relationship Specialty Start Date End Date No Ref-Primary, Physician PCP - General 05/30/24 documented as of this encounter
--- OUTSIDE RECORDS SUMMARY | 2024-07-02 12:03 | XMS_ITS | Referral Summary ---
Author Organization [place] Address [address] [place] [address] Care Team Providers Care Drilling Field Professional Name Role Phone No Ref-Primary, Physician Primary Care Provider Lien Dao PA-C Unavailable Encounters Date Type Department Care Team Description 07/02/2024 Telephone [facility] [address] [place] [address] Lien Dao PA-C Glucose (Called patient to obtain dexcom data for todays visit. ) 06/30/2024 Telephone [facility] [address] [place] [address] Lien Dao PA-C Appointment (Virtual visit 07/02) 05/30/2024 Travel 05/30/2024 1:40 PM CDT Office Visit [facility] [address] [place] [phone] Lien Dao PA-C Pre-existing type 2 diabetes mellitus in in first trimester (Primary Dx); Type 2 diabetes mellitus without complication, unspecified whether manager terminal insulin use (H); Encounter for supervision of normal in first trimester, unspecified 05/27/2024 Telephone [facility] [address] [place] [phone] Lien Dao PA-C Clinic Care Coordination - Initial 05/23/2024 Transcribe Orders GENERIC EXTERNAL DATA DEPARTMENT Provider, Generic External Data Type 2 diabetes mellitus without complication, unspecified whether skilled nursing insulin use (H) (Primary Dx); Encounter for supervision of normal in first trimester, unspecified 05/23/2024 Transcribe Orders GENERIC EXTERNAL DATA DEPARTMENT Provider, Generic External Data Depression, unspecified (Primary Dx); Anxiety disorder, unspecified 05/01/[address] [facility] Information Management [address] [address] Scan, Non-Provider from Last 3 Months Allergies [...] st Contact Info) Description 07/02/2024 2:00 PM INFANTRY SENIOR SERGEANT Virtual Visit [address] [place] [address] Lien Dao PA-C [address] [place] [address] Procedures Procedure Name Priority Date/Time [...] PM CDT Lien Dao PA-C LAB - BEAKER POCT Final Result MG LABORATORY POC [facility] [address] Lab, [place] [address], [place] MG LABORATORY [facility] - [address] Lab, [place] [address], [place] from Last 3 Months Care Teams Drilling Field Professional Relationship Specialty Start Date End Date No Ref-Primary, Physician PCP - General 05/30/24 Lien Dao PA-C [address] [place] [address] Assigned Endocrinology Provider 06/04/24
--- OUTSIDE RECORDS SUMMARY | 2024-07-02 12:03 | XMS_ITS | Encounter Summary ---
Author Organization [place] Address [address] [place] [address] Care Team Providers Care Memorial Adviser Name Role Phone Unavailable Primary Care Provider Unavailabl e Reason for Referral * Mental Health Outpatient (Routine: Next available opening) - Pending Review Specialty Diagnoses / Procedures Referred By Teofilo rob Referred To Contact Diagnoses Depression, unspecified Anxiety disorder, unspecified [place] Phone: tel: fax: Referral ID Status Reason Start Date Expiration Date V isits Requested Visits Authorized [id number] Pending Review 05/23/2024 05/23/2025 1 1 Question Answer Services: Psychotherapy/Counseling (non-medication) Reason for Referral: Individual Psychotherapy/Counseling Patient Scheduling Instructions: [facility] will call you to coordinate your care as prescribed by your provider. If you don't hear from a food products sales representative within 2 business days, please call . Only select yes if the patient has already been scheduled and requires a referral for insurance. If yes is selected, the referral will NOT route to scheduling for outreach. No Comments Referral Transcribed by external fax Provider: Ofelia Arrington PA-C affiliated with [facility] at [address] [place] [address]. VA: No If yes was is the VA Authorization Number: Phone number: [phone] Fax number: [phone] Please be aware that coverage of these services is subject to the terms and limitations of your health insurance plan. Call member services at your health plan with any benefit or coverage questions. [facility] will call you to coordinate your care as prescribed by your provider. If you don't hear from a food products sales representative within 2 business days, please call [...] Contact Info) Description 07/02/2024 2:00 PM SALESPERSON ART OBJECTS Virtual Visit [address] [address] Lien Dao PA-C [address] [place] [address] Scheduled Referrals Name Type Priority Associated Diagnoses Orde r Schedule Adult Mental Health Fashion Patternmaker Referral Referral Routine: Next available opening Depression, unspecified Anxiety disorder, unspecified Ordered: 05/23/2024 documented as of this encounter Visit Diagnoses Diagnosis Depression, unspecified- Primary Anxiety disorder, unspecified documented in this encounter
--- OUTSIDE RECORDS SUMMARY | 2024-07-02 12:03 | XMS_ITS | Encounter Summary ---
Author Organization [facility] Address [address] [place] [address] Care Team Providers Care Duct Installer Name Role Phone Sarita French MD Primary Care Provider [phone] No Ref-Primary, Physician Primary Care Provider Encounter Details Date Type Department Care Team ([facility] Contact Info) Description 05/01/2024 Medical Correspondence [facility] Information Management [address] [facility] [address] [place] [address] Scan, Non-Provider Social History Tobacco Use Types Packs/Day Years Used Date Smoking Tobacco: Never Assessed Comments Unknown Sex and Gender Information Value Date Recorded Sex Assigned at Not on file Legal Sex Female 3:07 PM CDT Gender Identity Not on file Sexual Orientation Not on file documented as of this encounter Plan of Treatment Upcoming Encounters Date Type Department Care Team ([facility] Contact Info) Description 07/02/2024 2:00 PM APPLICATIONS SCIENTIST Virtual Visit [address] [address] Lien Dao PA-C [address] [place] [address] documented as of this encounter Visit Diagnoses Not on filedocumented in this encounter Care Teams Duct Installer Relationship Specialty Start Date End Date Sarita French MD [address] [place] [address] F282/2A [place], [place] [id number] PCP - General Psychiatry 05/26/24 05/26/24 No Ref-Primary, Physician PCP - General 05/30/24 documented as of this encounter
--- OUTSIDE RECORDS SUMMARY | 2024-07-02 12:03 | XMS_ITS | Encounter Summary ---
Author Organization [address] [address] Care Team Providers Care Plating Tank Operator Name Role Phone Unavailable Primary Care Provider Unavailabl e Reason for Visit * Reason Onset Date Comments Clinic Care Coordination - Initial 05/27/2024 Encounter Details Date Type Department Care Team ([facility] st Contact Info) Description 05/27/[address] [phone] Lien Dao PA-C [address] [place] [phone] Clinic Care Coordination - Initial Social History [...] for clinic Zayda Koenig, RN P Clinic [id number] Please schedule NEW within one week RICK Easley or RICK JARAMILLO educational speech language clinician Trang Karimi on 05/27/2024 at 10:59 AM documented in this encounter Plan of Treatment Upcoming Encounters Date Type Department Care Team (Late st Contact Info) Description 07/02/2024 2:00 PM MEAT PROCESSOR Virtual Visit [address] [address] Lien Dao PA-C [address] [place] [address] documented as of this encounter Visit Diagnoses Not on filedocumented in this encounter
--- NOTE | 2024-07-02 13:15 | CRLHL7_ITS ---
For Patients: As a result of the Century Cures Act, medical imaging exams and procedure reports are released immediately into your electronic medical record. You may view this report before your referring provider. If you have questions, please contact your health care provider. INDICATION: Pelvic pain COMPARISON: 05/01/2024 TECHNIQUE: Real-time de los santos-scale imaging of the pelvis was performed. FINDINGS: Cervix is closed and measures 4.1 cm. No funneling. Vertex position. heart rate 135 beats per minute. Placenta is fundal. No previa. Simple left ovarian cyst measures 4.9 x 3.5 x 4.0 cm. IMPRESSION: Closed cervix without funneling. 4.9 cm simple left ovarian cyst. Dictated by Cj Melgar MD @ 07/03/2024 12:28:17 PM (Electronically Signed)
== END 2024-07-02 12:01 | disposition home or self-care (01) ==
LOC: US 12:01
PROVIDERS: PCP Nurse Practitioner Family; Visit Provider Obstetrics & Gynecology
DX: O26.90 Pregnancy related conditions, unspecified, unspecified trimester (principal); R10.2 Pelvic and perineal pain; O34.91 Maternal care for abnormality of pelvic organ, unspecified, first trimester; N83.202 Unspecified ovarian cyst, left side
CPT/HCPCS: 76815; 93976

== ENCOUNTER 2024-07-16 09:08 | Outpatient (CLI) | payer MEDICAID, SELFPAY ==
--- OUTSIDE RECORDS SUMMARY | 2024-07-16 09:12 | XMS_ITS | Clinical Summary ---
Author Organization [facility] Address [address] [place] [address] Care Team Providers Care All Source Intelligence Name Role Phone No Ref-Primary, Physician Primary [...] Type Department Care Team Description 07/02/[address] [address] Lien Dao PA-C Glucose (Called patient to obtain dexcom data for todays visit. ) 06/30/2024 Telephone [facility] [address] [place] [phone] Feliberto, Lien, PA-C Appointment (Virtual visit 07/02) 05/30/2024 1:40 PM CDT Office Visit [facility] [address] [place] [phone] Lien Dao PA-C Pre-existing type 2 diabetes mellitus in in first trimester (Primary Dx); Type 2 diabetes mellitus without complication, unspecified whether correction insulin use (H); Encounter for supervision of normal in first trimester, unspecified 05/30/2024 Travel 05/27/2024 Telephone [facility] [address] [place] [address] Lien Dao PA-C Clinic Care Coordination - Initial 05/23/2024 Transcribe Orders GENERIC EXTERNAL DATA DEPARTMENT Provider, Generic External Data Type 2 diabetes mellitus without complication, unspecified whether vermin exterminator insulin use (H) (Primary Dx); Encounter for supervision of normal in first trimester, unspecified 05/23/2024 Transcribe Orders GENERIC EXTERNAL DATA DEPARTMENT Provider, Generic External Data Depression, unspecified (Primary Dx); Anxiety disorder, unspecified 05/01/2024 Medical Correspondence [facility] Information Management [address] [address] Scan, Non-Provider from Last 3 Months Social [...] 05/30/2024 2:01 PM CDT Plan of Treatment Health Maintenance Due [...] 05/30/2024 2:08 PM CDT Lien SANCHEZ - BANNER POCT Final Result MG LAB[facility] - [address] Lab, [place] [address], [facility] MG LABORATORY [facility] - [address] Lab, [place] [address], [facility] from Last 3 Months Care Teams All Source Intelligence Relationship Specialty Start Date End Date No Ref-Primary, Physician PCP - General 05/30/24 Lien Dao PA-C [address] [place] [address] Assigned Endocrinology Provider 06/04/24
--- OUTSIDE RECORDS SUMMARY | 2024-07-16 09:12 | XMS_ITS | Referral Summary ---
Author Organization [place] Address [address] [place] [address] Care Team Providers Care Drum Reel Cutter Name Role Phone No Ref-Primary, Physician Primary Care Provider Lien Dao PA-C Unavailable Encounters Date Type Department Care Team Description 07/02/2024 Telephone [facility] [address] [place] [phone] Lien Dao PA-C Glucose (Called patient to obtain dexcom data for todays visit. ) 06/30/2024 Telephone [facility] [address] [place] [phone] Lien Dao PA-C Appointment (Virtual visit 07/02) 05/30/2024 Travel 05/30/2024 1:40 PM CDT Office Visit [facility] [address] [place] [phone] Lien Dao PA-C Pre-existing type 2 diabetes mellitus in in first trimester (Primary Dx); Type 2 diabetes mellitus without complication, unspecified whether superintendent container terminal insulin use (H); Encounter for supervision of normal in first trimester, unspecified 05/27/2024 Telephone [facility] [address] [place] [phone] Lien Dao PA-C Clinic Care Coordination - Initial 05/23/2024 Transcribe Orders GENERIC EXTERNAL DATA DEPARTMENT Provider, Generic External Data Type 2 diabetes mellitus without complication, unspecified whether superintendent container terminal insulin use (H) (Primary Dx); Encounter for supervision of normal in first trimester, unspecified 05/23/2024 Transcribe Orders GENERIC EXTERNAL DATA DEPARTMENT Provider, Generic External Data Depression, unspecified (Primary Dx); Anxiety disorder, unspecified 05/01/2024 Medical Correspondence [facility] Information Management [address] [phone] Scan, Non-Provider from Last 3 Months Allergies [...] 05/30/2024 2:01 PM CDT Plan of Treatment Not on file Procedures Procedure Name Priority Date/Time Associated Diagnosis [...] POC [facility] - [address] Lab, [place] [address], [facility] LAB[facility] - [address] Lab, [place] [address], [place] from Last 3 Months Care Teams Drum Reel Cutter Relationship Specialty Start Date End Date No Ref-Primary, Physician PCP - General 05/30/24 Lien Dao PA-C [address] [place], [place] [address] Assigned Endocrinology Provider 06/04/24
--- OUTSIDE RECORDS SUMMARY | 2024-07-16 09:12 | XMS_ITS | Encounter Summary ---
Author Organization [facility] Address [address] [place] [address] Care Team Providers Care Technical Solutions Director Name Role Phone No Ref-Primary, Physician Primary Care Provider Lien Dao PA-C Unavailable Reason for Visit * Reason Onset Date Comments Glucose 07/02/2024 Called patient t o obtain dexcom data for todays visit. Encounter Details Date Type Department Care Team ([facility] Contact Info) Description 07/02/[address] [phone] Lien Dao PA-C [address] [place] [address] Glucose (Called patient to obtain [...] Vishnu Cardona on 07/02/2024 at 10:23 AM PAINTER HELPER documented in this encounter Plan of Treatment Not on file documented as of this encounter Visit Diagnoses Not on filedocumented in this encounter Care Teams Technical Solutions Director Relationship Specialty Start Date End Date No Ref-Primary, Physician PCP - General 05/30/24 Lien Dao PA-C [address] [place] [address] Assigned Endocrinology Provider 06/04/24 documented as of this encounter
--- OUTSIDE RECORDS SUMMARY | 2024-07-16 09:13 | XMS_ITS | Encounter Summary ---
Author Organization [place] Address [address] [place] [address] Care Team Providers Care Cementer Helper Name Role Phone No Ref-Primary, Physician Primary Care Provider Reason for Referral * Consultation (Routine: Next available opening) - Pending Review Specialty Diagnoses / Procedures Referred By Teofilo t Referred To Contact Diabetes Education Diagnoses Pre-existing type 2 diabetes mellitus in in first trimester Lien Dao PA-C [address] [place] [address] Phone: tel: fax: Referral ID Status Reason Start Date Expiration Date V isits Requested Visits Authorized [id number] Pending Review 06/01/2024 06/01/2025 1 1 Question [...] Needs: None, Additional Insulin Training Scheduling Instructions: [facility] will call you to coordinate your care as prescribed by your provider. If you don't hear from a lead customer service representative within 2 business days, please call [...] and [id number]) and Medical Nutrition Therapy (Codes 23601 and 42049) benefits and ask which blood glucose monitor brands are covered by your plan. Please bring the following with you to your appointment: 1. List of current medications 2. List of Blood Glucose Monitor brands that are covered by your insurance plan 3. Blood Glucose Monitor and log book 4. Food records for the 3 days prior to your visit [facility] will call you to coordinate your care as prescribed by your provider. If you don't hear from a lead customer service representative within 2 business days, please call Reason for Visit * Reason Comments New Patient Diabetes GDM * Consultation (Routine) - Pending Review Specialty Diagnoses / Procedures Referred By Contac t Referred To Contact Endocrinology, Diabetes, and Metabolism Diagnoses Type 2 diabetes mellitus without complication, unspecified whether halfway insulin use (H) Encounter for supervision of normal in first trimester, unspecified November Phone: tel: fax: Referral ID Status Reason Start Date Expiration Date V isits Requested Visits Authorized [id number] Pending Review 05/23/2024 05/23/2025 1 1 Encounter Details Date Type Department Care Team (Late st Contact Info) Description 05/30/2024 1:40 PM CDT Office Visit [address] [phone] Lien Dao PA-C [address] [place], [place] [address] Pre-existing type 2 diabetes mellitus in in first trimester (Primary Dx); Type 2 diabetes mellitus without complication, unspecified whether systems support officer insulin use (H); Encounter for supervision of [...] blood glucose Toyin Burgos CMA Adult Endocrinology [facility] * Lien Dao PA-C - 05/30/2024 1:40 [...] visit. She is not sure if the forest scientist will also help with medication, so I [...] . I have reviewed Care Everywhere including [facility], [facility] [place], [facility], [facility] , [facility], [place] lab reports, imaging reports and provider notes [...] being followed closely by an OB in [place]. She also has a forest scientist appt scheduled for Sunday. Endocrine relevant labs [...] documented in this encounter Plan of Treatment Scheduled Referrals Name Type Priority Associated Diagnoses Orde r Schedule Adult Diabetes Education Statue Maker Referral Referral Routine: Next available opening Pre-existing [...] 1:47 PM CDT 05/30/2024 2:08 PM CDT us Lien Dao PA-C LAB - BEAKER POCT Final Result [facility] - [address] Lab, [place] [address], [facility] [place] [address] Lab, [place] [address], [facility] documented in this encounter Visit Diagnoses Diagnosis Pre-existing type 2 diabetes mellitus in in first trimester- Primary Diabetes mellitus of mother, complicating , childbirth, or the puerperium, unspecified as to episode of care Type 2 diabetes mellitus without complication, unspecified whether systems support officer insulin use (H) Encounter for supervision of normal in first trimester, unspecified documented in this encounter Care Teams Cementer Helper Relationship Specialty Start Date End Date No Ref-Primary, Physician PCP - General 05/30/24 documented as of this encounter
--- OUTSIDE RECORDS SUMMARY | 2024-07-16 09:13 | XMS_ITS | Encounter Summary ---
Author Organization [facility] Address [address] [place] [address] Care Team Providers Care Hourly Shift Name Role Phone No Ref-Primary, Physician Primary Care Provider Lien Dao PA-C Unavailable Reason for Visit * Reason Onset Date Comments Appointment 06/30/2024 Virtual visit Encounter Details Date Type Department Care Team ([facility] Contact Info) Description 06/30/[address] [phone] Lien Dao PA-C [address] [place] [address] Appointment (Virtual visit 07/02) Social [...] Rachel Rolle CMA - 06/30/2024 2:41 PM LINEN ROOM CUSTODIAN Spoke with patient. Pt is unable to keep appt on 07/02/24. Pt states she has an OB appt at the sametime. Pt states she needs to reschedule. Pt would like a call pt back to reschedule appt. Rachel Rolle CMA on 06/30/2024 at 2:42 PM N ROOM CUSTODIAN documented in this encounter Plan of Treatment Not on file documented as of this encounter Visit Diagnoses Not on filedocumented in this encounter Care Teams Hourly Shift Relationship Specialty Start Date End Date No Ref-Primary, Physician PCP - General 05/30/24 Lien Dao PA-C [address] [place] [address] Assigned Endocrinology Provider 06/04/24 documented as of this encounter
--- OUTSIDE RECORDS SUMMARY | 2024-07-16 09:13 | XMS_ITS | Clinical Summary ---
Author Organization [employer] [facility] Address [place], [place] [address] Care Team Providers Care Back Tufter Name Role Phone Pcp, No Primary Care Provider Unavailshree e Eliud oMrgan Unavailable [phone] Nonstaff, Doctor Unavailable Unavailable Allergies No [...] Encounters Date Type Department Care Team Description 07/03/2024 1:[address] ORDERLY Office Visit [facility] [address] [place] [address] Oliver Grijalva MD Arrived 04/28/2024 5:21 AM CDT - 04/28/2024 8:12 AM CDT Emergency [facility] [address] [place] [address] Anthony Suero MD Peterson, Christopher Roy, MD Abdominal pain affecting (Primary Dx); Subchorionic hematoma in first trimester, single or unspecified fetus; Ovarian cyst affecting in first trimester, antepartum Discharge Disposition: Home Self Care 04/28/2024 Travel from Last 3 Months Immunizations Name Administration Dates Next Due COVID-19 vaccine ([employer] 30mcg/0.3mL) NOAH PAUL 09/14/2021,07/20/2021 DTaP 03/21/2000,09/21/1999,08/18/1999 Hepatitis B (Peds) 03/21/2000,09/21/1999, [...] None Livin g 9 9 Complications:None Delivery Location:[facility] 2016 35w 6d 2.92 kg (6 lb 7 oz) F Vag None Livin g 9 10 GORDON BARRY ,BG ALVERTO Coyle Delivery Location:[facility] Current Last Filed Vital Signs Vital Sign Reading Time Taken Comments Blood Pressure 103/65 04/28/2024 6:06 AM CDT Pulse 52 04/28/2024 6:06 AM CDT Temperature 36.5 C (97.7 F) 04/28/2024 5:21 AM CDT Respiratory Rate 20 04/28/2024 5:21 AM CDT [...] 02/27/20 24, 02/25/2024 Tetanus booster 07/28/2026 07/28/2016, 04/2016, 08/12/2014, Additional history exists Tdap Completed 07/28/2016, 04/2016, 08/12/2014, Additional history exists RSV vaccine [...] ULTRASOUND TA Routine 04/28/2024 5:34 AM CDT PLUSH BRUSHER THIN PREP PAP DIAGNOSTIC IMAGED Routine 06/02/2020 2:36 PM CDT from Last 3 Months or Most Recently Relevant to Health Maintenance Results * SCAN-RADIOLOGY REPORT (04/28/2024 7:50 AM CDT) Anatomical Region Laterality Modality Other Scanner OTHER * (ABNORMAL) UA W/ SEDIMENT EXAM REFLEXED PER CRITERIA (04/28/2024 6:25 AM CDT) COLOR Yellow Yellow Color 04/28/2024 6:48 AM T [facility] CLARITY Clear Clear Clarity 04/28/2024 6:48 AM T [facility] SPECIFIC GRAVITY,URINE >=1.030(A) 1.010, 1.015, 1.020, 1.025 04/28/2024 6:48 AM [facility] PH,URINE 6.0 6.0, 7.0, 8.0, 5.5, 6.5, 7.5, 8.5 04/28/2024 6:48 AM [facility] UROBILINOGEN, QUALITATIVE Normal Normal EU/dl 04/28/2024 6:48 AM [facility] PROTEIN, URINE Negative Negative mg/dL 04/28/2024 6:48 AM [facility] GLUCOSE, URINE Negative Negative mg/dL 04/28/2024 6:48 AM [facility] KETONES,URINE Negative Negative mg/dL 04/28/2024 6:48 AM [facility] BILIRUBIN,URI NE Negative Negative 04/28/2024 6:48 AM [facility] OCCULT BLOOD,URINE Negative Negative 04/28/2024 6:48 AM [facility] NITRITE Negative Negative 04/28/2024 6:48 AM [facility] LEUKOCYTE ESTERASE Negative Negative 04/28/2024 6:48 AM [facility] Urine URINE SPECIMEN / Unknown Non-Blood / Unknown 04/28/2024 6:25 AM CDT 04/28/2024 6:45 AM CDT Anthony Suero MD URINE [facility] [address] [address] * (ABNORMAL) CBC WITH AUTO DIFFERENTIAL (04/28/2024 6:15 AM [facility] [place]NOTE 2[place] WHITE BLOOD COUNT 8.2 4.5 - 11.0 thou/cu mm 04/28/2024 6:33 AM [facility] RED BLOOD COUNT 4.05 4.00 - 5.20 mil/cu mm 04/28/2024 6:33 AM [facility] HEMOGLOBIN 11.6(L) 12.0 - 16.0 g/dL 04/28/2024 6:33 AM [facility] HEMATOCRIT 36.6 33.0 - 51.0 % 04/28/2024 6:33 AM [facility] MCV 90 80 - 100 fL 04/28/2024 6:33 AM [facility] MCH 28.6 26.0 - 34.0 pg 04/28/2024 6:33 AM [facility] MCHC 31.7(L) 32.0 - 36.0 g/dL 04/28/2024 6:33 AM [facility] RDW 13.0 11.5 - 15.5 % 04/28/2024 6:33 AM [facility] PLATELET COUNT 235 140 - 440 thou/cu mm 04/28/2024 6:33 AM [facility] MPV 10.8 6.5 - 11.0 fL 04/28/2024 6:33 AM [facility] % NEUT 69.6 % 04/28/2024 6:33 AM [facility] % LYMPH 23.5 % 04/28/2024 6:33 AM [facility] % MONO 5.2 % 04/28/2024 6:33 AM [facility] % EOS 1.6 % 04/28/2024 6:33 AM [facility] % BASO 0.1 % 04/28/2024 6:33 AM [facility] ABSOLUTE NEUTROPHILS 5.7 1.7 - 7.0 thou/cu mm 04/28/2024 6:33 AM [facility] ABSOLUTE LYMPHOCYTES 1.9 0.9 - 2.9 thou/cu mm 04/28/2024 6:33 AM CDT [facility] ABSOLUTE MONOCYTES 0.4 <0.9 thou/cu mm 04/28/2024 6:33 AM CDT [facility] ABSOLUTE EOSINOPHILS 0.1 <0.5 thou/cu mm 04/28/2024 6:33 AM CDT [facility] ABSOLUTE BASOPHILS 0.0 <0.3 thou/cu mm 04/28/2024 6:33 AM CDT [facility] Blood BLOOD SPECIMEN / Unknown Butterfly / Unknown 04/28/2024 6:15 AM CDT 04/28/2024 6:23 AM CDT Anthony Suero MD HEMATOLOGY [facility] [address] [address] * TYPE AND SCREEN ONLY (04/28/2024 6:15 AM CDT) ABORH O Rh Positive 04/28/2024 7:09 AM [facility] BLOOD BANK ANTIBODY SCREEN Negative Negative 04/28/2024 7:09 AM [facility] BLOOD BANK SPECIMEN EXPIRATION DATE/TIME 05/01/24 23:59 04/28/2024 7:09 AM [facility] BLOOD BANK Blood BLOOD SPECIMEN / Unknown Butterfly / Unknown 04/28/2024 6:15 AM CDT 04/28/2024 6:23 AM CDT Anthony Suero MD BLOOD BANK [facility] BLOOD BANK [address] [phone] * HCG BETA QUANT, (04/28/2024 6:15 AM CDT) HCG BETA QUANT,PREGNANC Y 31,505 mIU/mL 04/28/2024 7:17 AM CDT [facility] Blood BLOOD SPECIMEN / Unknown Butterfly / Unknown 04/28/2024 6:15 AM CDT 04/28/2024 6:23 AM CDT [facility] - 04/28/2024 7:17 AM CDT Expected Value [...] clinically significant interference for this test assay. If interference is suspected, it is strongly recommended that biotin is discontinued for at least one week prior to retesting. Anthony Suero MD CHEMISTRY [facility] [address] [address] * (ABNORMAL) HEPATIC FUNCTION PANEL (04/28/2024 6:15 AM CDT) ALBUMIN 3.9(L) 4.0 - 4.9 g/dL 04/28/2024 7:08 AM CDT [facility] PROTEIN,TOTAL 6.5 6.0 - 8.0 g/dL 04/28/2024 7:08 AM CDT [facility] BILIRUBIN,TOTAL 0.4 0.0 - 1.2 mg/dL 04/28/2024 7:08 AM CDT [facility] BILIRUBIN,DIRECT 0.2 0.0 - 0.2 mg/dL 04/28/2024 7:08 AM [facility] BILIRUBIN,INDIRE CT 0.2 0.2 - 0.8 mg/dL 04/28/2024 7:08 AM [facility] ALK PHOSPHATASE 71 35 - 104 IU/L 04/28/2024 7:08 AM [facility] ALT (SGPT) 7(L) 10 - 35 IU/L 04/28/2024 7:08 AM [facility] AST (SGOT) 16 10 - 35 IU/L 04/28/2024 7:08 AM [facility] Blood BLOOD SPECIMEN / Unknown Butterfly / Unknown 04/28/2024 6:15 AM CDT 04/28/2024 6:23 AM T Anthony Suero MD CHEMISTRY Performing Organization Address City/State/[facility] Co de Phone Number [facility] [address] [address] * (ABNORMAL) BASIC METABOLIC PANEL (04/28/2024 6:15 AM CDT) SODIUM 137 136 - 145 mmol/L 04/28/2024 6:48 AM [facility] POTASSIUM 3.7 3.5 - 5.1 mmol/L 04/28/2024 6:48 AM [facility] CHLORIDE 105 98 - 107 mmol/L 04/28/2024 6:48 AM [facility] CO2,TOTAL 21(L) 22 - 29 mmol/L 04/28/2024 6:48 AM [facility] ANION GAP 11 5 - 18 04/28/2024 6:48 AM [facility] GLUCOSE 143(H) 70 - 99 mg/dL 04/28/2024 6:48 AM [facility] CALCIUM 8.6 8.6 - 10.0 mg/dL 04/28/2024 6:48 AM [facility] BUN 9 6 - 20 mg/dL 04/28/2024 6:48 AM [facility] CREATININE 0.60 0.50 - 0.90 mg/dL 04/28/2024 6:48 AM CDT [facility] BUN/CREAT RATIO 15 10 - 20 4 6:48 AM CDT [facility] eGFR >90 >90 mL/min/1.7 3m2 04/28/2024 6:48 AM CDT [facility] Comment:As of 2021, eG FR is calculated by the CKD-EPI creatinine equation without race adjustment. eGFR can be influenced by muscle mass, exercise, and diet. The reported eGFR is an estimation only and is only applicable if the renal function is stable. Blood BLOOD SPECIMEN / Unknown Butterfly / Unknown 04/28/2024 6:15 AM CDT 04/28/2024 6:23 AM CDT Anthony Suero MD CHEMISTRY [facility] [address] [address] * PLUSH BRUSHER THIN PREP PAP DIAGNOSTIC IMAGED (06/02/2020 2:36 PM CDT) Case Report Gynecologic Cytology Report Case: [id number] Authorizing Provider: Lydia Hua NP Collected: 06/02/2020 1436 Ordering Location: [facility] Received: 06/04/2020 0912 First Screen: Daniela Collins Rescreen: Anushka Amado Specimen: PLUSH BRUSHER ThinPrep Vial Diagnostic, Cervical 06/10/2020 1:19 PM CDT [facility] ENTRAL LABORATORY INTERPRETATION/ RESULT NEGATIVE FOR INTRAEPITHELIAL LESION OR MALIGNANCY (NIL) (none) 06/10/2020 1:19 PM CDT [facility] ENTRAL LABORATORY IMEN ADEQUACY Satisfactory for evaluation Endocervical component present 06/10/2020 1:19 PM CDT [facility] EN[facility]AL LABORATORY HPV REQUEST HPV and PAP 06/10/2020 1:19 PM CDT [facility] EN[facility]AL LABORATORY Last Pap Result First Pap/Unknown 1:19 PM CDT [facility] [place] Bx Done Today No 06/10/2020 1:[address] [facility] Additional Information 06/10/2020 1:19 PM CDT [facility] Comment: Interpreted at [facility] - [address], [place] [address] Automated Review Successful 06/10/2020 1:19 PM CDT [facility] Comment:Specimen processed s uccessfully by automated cvir tech device, [employer] Imaging System, [employer] ANCILLARY TESTING PLUSH BRUSHER HPV Ordered, Please see separate report 06/10/2020 1:19 PM CDT [facility] Note The pap test is a [...] and malignant lesions. 06/10/2020 1:19 PM CDT [facility] Other (Cervical) 06/02/2020 2:36 PM CDT 06/04/2020 9:12 AM CDT Lydia Hua NP PATHOLOGY/CYTOLOGY [facility] [address] [place] [address], [place] from Last 3 Months or Most [...] 7:00 AM 03/11/2014 4:12 PM Care Teams Back Tufter Relationship Specialty Start Date End Date Pcp, No . PCP - General 12/06/22 Eliud Morgan PA . Physician Baggage Handling Supervisor 12/06/22 Nonstaff, Doctor NON STAFF DOCTOR 12/26/13
--- OUTSIDE RECORDS SUMMARY | 2024-07-16 09:13 | XMS_ITS | Encounter Summary ---
Author Organization [place] Address [address] [place] [address] Care Team Providers Care Senior Accounting Associate Name Role Phone Unavailable Primary Care Provider Unavailabl e Reason for Referral * Consultation (Routine) - Pending Review Specialty Diagnoses / Procedures Referred By Teofilo t Referred To Contact Endocrinology, Diabetes, and Metabolism Diagnoses Type 2 diabetes mellitus without complication, unspecified whether practical ministries professor insulin use (H) Encounter for supervision of normal in first trimester, unspecified Ofelia Arrington Phone: tel: fax: Referral ID Status Reason Start Date Expiration Date V isits Requested Visits Authorized [id number] Pending Review 05/23/2024 05/23/2025 1 1 Question Answer Reason for Referral: Diabetes Diabetes State: Gestational Scheduling Instructions: [facility] will call you to coordinate your care as prescribed by the provider. If you don t hear from a insurance healthcare representative within 2 business days, please call [phone]. Comments Referral Transcribed by external fax Provider: TY Arrington affiliated with [facility] and clinic at [address] [place] [address]. VA: No If yes was is the VA Authorization Number: Phone number: [phone] Fax number: [phone] Please be aware that coverage of these services is subject to the terms and limitations of your health insurance plan. Call member services at your health plan with any benefit or coverage questions. [facility] will call you to coordinate your care as prescribed by the provider. If you don t hear from a insurance healthcare representative within 2 business days, please call [phone]. Encounter Details Date Type Department Care Team (Late st Contact Info) Description 05/23/2024 Transcribe Orders GENERIC EXTERNAL DATA DEPARTMENT Provider, Generic External Data Type 2 diabetes mellitus without complication, unspecified whether practical ministries professor insulin use (H) (Primary Dx); Encounter for [...] as of this encounter Plan of Treatment Scheduled Referrals Name Type Priority Associated Diagnoses Orde r Schedule Adult Endocrinology Political Scientist Referral Referral Routine Type 2 diabetes mellitus without complication, unspecified whether practical ministries professor insulin use (H) Encounter for supervision of normal in first trimester, unspecified Expected: 05/23/2024 (Approximate), Expires: 05/23/2025 documented as of this encounter Visit Diagnoses Diagnosis Type 2 diabetes mellitus without complication, unspecified whether mcc insulin use (H)- Primary Encounter for supervision of normal in first trimester, unspecified documented in this encounter
--- OUTSIDE RECORDS SUMMARY | 2024-07-16 09:13 | XMS_ITS | Data Portability ---
Author Organization [place] - [facility] Address [address] [place] [address] [place] [address] Assessment No assessment recorded. Plan of Treatment Reminders Order Date Submit Date Provider Last Modified By Organization Details Last Modified Time Details Appointments None recorded. Lab CBC w/ diff 2019 [facility], [address] [place] [address], [address], 0 14:11:12 HbA1c (hemoglobi n A1c), blood 2019 [facility], [address] [place] [address], [address], 0 17:33:09 TSH, serum, reflex free T4 2019 [facility], [address] [place] [address], [address], 0 14:11:12 pap, LB + reflex to HR HPV if ASC-U 2019 [facility], [address] [place] [address], [address], 0 15:57:24 CT + NG + TV, DNA, urine/swab - vaginal swab 2019 [facility], [address] [place] [address], [address], 0 10:46:21 wet mount, vaginal 2019 [facility], [address] [place] [address] [place], [address], 0 15:31:48 urinalysis , dipstick, auto 2021 [email or web address] [facility], [address] [place] [address] [place], [address], 2 10:53:40 urinalysis complete, reflex culture 2021 LILIANA [facility], [address] [place] [address] [place], [address], 2 16:06:10 Referral care coordinati on referral 2019 [email or web address] Not available 0 18:20:36 casey saw operator/ca re coordinato r referral - Pt has agreed to follow through with advocacy appt to be reconsider ed for [place] sure. She thinks she has the right paperwork 2021 [email or web address] Not available 2 10:50:19 mental health clinic referral 2021 [email or web address] Not available 16:39:37 Procedures None recorded. Surgeries None recorded. Imaging US, pelvis, complete 2019 LILIANA Not available 0 10:45:26 Medication Orders naproxen 500 mg tablet,del ayed release 2019 Not available 1 11:45:11 omeprazole 20 mg capsule,de layed release 2020 LILIANA Not available 11:56:19 fluconazol e 150 mg tablet 2021 LILIANA Not available 2 14:22:43 Fiber (psyllium husk-sugar ) 3.4 gram/7 gram oral powder 2021 LILIANA Not available 12:18:28 sulfametho xazole 800 mg-trimeth oprim 160 mg tablet 2021 LILIANA Not available 12:17:54 Patient TargetsNo targets recorded. Patient InstructionsNo instructions recorded. Reason for Referral Care Coordination Referral f or Dysmenorrhea APC application OR insurance navigator if eligible - needs to see gynecology pending APC approval Referring Physician: Lydia Hua, Family Medicine, Encounter Date: 05/26/2020 Senior Engineering Team Leader/care Coordinato r Referral for Chronic pelvic pain of female Pt has agreed to follow through with advocacy appt to be reconsidered for [place] sure. She thinks she has the right paperwork Referring Physician: Zayda Swanson [facility], Encounter Date: 08/01/2022 Mental Health Clinic Referra l for Difficulty coping Referring Physician: Zayda Swanson [facility], Encounter Date: 08/01/2022 Results Created Date Observation Date Name Description Value Unit Range Abnormal Flag Note LastModifiedBy Organization Detail LastModifiedTime 06/02/2006/02/2020 TSH, serum , refle x free T4 WBC 8.9 Not Available Not Availa ble 06/03/2020 14:11:12 06/02/2006/02/2020 TSH, serum , refle x free T4 HGB 13.0 Not Available Not Availa ble 06/03/2020 14:11:12 06/02/2006/02/2020 TSH, serum , refle x free T4 platelet count 286 Not Available Not Available 05/14 14:11:12 06/02/2006/02/2020 TSH, serum , refle x free T4 [...] blood A1C 5.8 % <=6.4 Not Available [facility] [address] [place], [address], 06/04/2020 09:10:37 06/07/2006/03/2020 US, elliot morgan ete No observ ation record ed. Not Available 2019 17:21:56 Result Notes None recorded. Problems Name Problem SNOMED Code Status Onset Date Resolution Date Notes Provider Name and Address Organization Details Recorded Time Hemorrhoids 08159858 Active 2021 for 3 years JARVIS PINEDA [address] [place] [address], [address], [facility] [facility] 2 17:12:16 Endometriosis of uterus 52157675 Active 2019 [place] [address] [place] [address], [address], [facility] [employer] [facility] 0 15:55:08 Dysmenorrhea 255870039 Active 2019 JARVIS PINEDA [address] [place] [address], [address], [facility] [employer] [facility] 2 17:13:05 Migraine with aura 2735340 Active 2019 [place] [address] [place] [address], [address], [facility] [employer] [facility] 0 16:14:23 Cyst of ovary 27516707 Active 2019 JARVIS PINEDA [address] [place] [address], [address], [facility] 2 17:12:21 Obesity 219461660 Active 2019 Lydia Hua NP [address] [place], [address], [facility] 0 16:14:36 Problem Notes None recorded. Procedures Surgical History Date Name Laterality Status Provider Name and Address Organization Details Recorded Time 05/15/20 16 Date of Last Pap Smear completed Lydia Hua, KELSI [address] [place], [address], [facility] 05/26/2020 15:58:27 [place] [address] [place] [address], [address], [facility] 05/26/2020 15:57:30 Imaging Results Imaging Date Name [...] Not available Not available Not available 05/26/2020 16893 003 SNOMED contr aindi cated due to migra ine with aura Lydia Hua, KELSI [address] [place], [address], [facility] 0 15:54:19 Medications Name Sig Start Date [...] 0 73 /min 162.56 cm 35.2 kg/m2 22394.4 4 g 114 mm[Hg] 78 mm[Hg] Lydia Hua, KELSI [address] [place], [address] [place] [address] [facility] 0 16:05:12 Date Recorded Body height Body mass index (BMI) Body weight Heart rate Systolic blood pressure Diastolic blood pressure Provider Name and Address Organization Details Last Updated DateTime 0 162.56 cm 34.3 kg/m2 16780.4 7 g 69 /min 124 mm[Hg] 70 mm[Hg] Lydia Hua, KELSI [address] [place], [address], [facility] 0 14:19:35 Date Recorded Body height Provider Name an d Address Organization Details Last Updated DateTime 02/23/2021 162.56 cm Lydia Hua NP [address] [place], [address], [place] [facility] 02/23/2021 11:45:15 Social History Question Answer Notes LastModified by Organizat ion Details LastModified Time Tobacco Smoking Status Never Smoker Not Available [employer] 06/15/2020 03:52:54 What Is Your Level Of Alcohol Consumption? None [id number] Information not available 06/15/2020 Are You Currently Employed? 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 With Others Lives With Kids And Information not available 05/26/2020 How Many Children Do You Have? 5 [id number] Information not available 06/15/2020 Are You Sexually Active? No [id number] Information not available 06/15/2020 Sex: Unknown Functional Status Question Answer Note LastModified by Organization D etails LastModified Time Are you able to care for yourself? Yes [id number] Information n ot available 06/15/2020 Mental Status [...] Diagnosis/Indication Diagnosis SNOMED-CT Code Diagnosis ICD10 Code 40907 Lydia Hua NP [facility] [address] [facility] [place] [address] 05/26/2020 15:32:39 05/26/2020 16:37:44 Dysmenorrhea 672855259 N94.6 Body mass index 30+ - obesity 102810008 Z68.35 Abnormal c ervical Papanicolaou smear 903032696 R87.619 Endometrio sis of pelvis 18230514 N80.3 55656 Lydia Hua NP [facility] [address] [place] [address] 06/02/2020 14:01:00 06/02/2020 16:06:52 Dysmenorrhea 795773513 N94.6 Abnormal c ervical Papanicolaou smear 359712714 R87.619 44884 Lydia Hua NP [facility] [address] [place] [address] 02/23/2021 11:10:32 02/23/2021 16:27:50 Nonulcer dyspepsia 2037771 K30 Dysmenorrhea 725776266 N 94.6 25638 ZAYDA SWANSON, [facility] [address] [place] [address] 07/27/2022 14:10:00 07/28/2022 10:49:27 Candidiasis of vagina 42383805 B37.31 Dysuria 14268091 R30.0 Chronic pe lvic pain of female 378112416 R10.2 [address] RACHEL PINED[facility] [address] [place] [address] 08/01/2022 16:49:00 08/01/2022 17:36:23 Chronic pelvic pain of female 331328333 R10.2 Candidiasis of vagina 72 587167 B37.31 Acute urin anabelle tract infection 656938277 N39.0 Constipation 38149694 K5 9.00 Difficulty coping 945296 00 Z73.89 Health Concerns Section Related Observation [...] Address Organization Details Recorded Time 05/26/2020 text/html 29 y.o. F kalli fisher due to pelvic pain with menses Reports always having painful periods Diagnosed with endometriosis 2012 at [facility], but no definitive surgical diagnosis at that [...] irritation, risk of STIs, fever, chills Lydia Hua NP [address] [place], [address], [email or web address] 05/26/2020 17:22:34 06/02/2020 text/html 29 y.o. F kalli fisher in follow up. Seen 1 week ago for longstanding history of dysmenorrhea and previous diagnosis of endometriosis. Unable to perform exam last week. Presents for exam. Reports previous pap smear 2016 abnormal. Unable to find exact result. Plan to repeat today. No changes since last week Nexplanon for contraception Bad pain yesterday and beginning to spot Lydia Hua NP [address] [place], [address], [email or web address] 06/02/2020 15:33:15 02/23/2021 text/html 30 y.o. F Evalua rogelio via phone due to pain in her lower rib and middle of my stomach, early satiety with 15-lb weight loss, nausea, vomiting x 2, dizziness starting 3 weeks ago These symptoms only occur after eating Bowel movements have been normal Denies blood in vomit or stool, dysuria, fever, chills Continues with previously-evaluate d dysmenorrhea but worsening now. Previously she was referred to [facility] and surgical consult but preferred to apply for insurance before pursuing this referral. Would like to apply for insurance again and see [facility]. Lydia Hua, KELSI [address] [place], [address], [facility] 02/23/2021 12:36:44 07/27/2022 text/html Pt called on heather ne d/t inability to see in-person. Belarusian-speaking. She notes thicker, white curd-like vaginal discharge, increased over usual with itching and burnign. Not currently having sex, but when she last did, it was painful. Has had both urine and yeast infections before, but it has been a long time. +intermenstrual spotting, pink urine with associated odor+sig menstrual cramps and pelvic pain for years R>LDenies currently vaginal lesions, but sometimes will note smoothe, flesh-colored lesions. Pelvic u/s showed Left adnexal cyst growth and thickend wall 06/04/20. Surgical consult recommended. She denies ever seeing Dr. Thomason, [facility]. She did see a [facility] provider 12/2021, but I am unable to view notes. Diagnosis was noted to be endometriosis, but in 2019 endometrium was unremarkable at 2mm. It is possible that there has been a change not reflected in 2020 imaging.She says she was told at Last [facility] visit that nothing could be done other than meds, which have been unhelpful. Meloxicam and nearly ever bc method has been tried (oral, patch, mirena IUD). Nexplanon was initially helpful, but not currently. 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 She RACHEL PINEDA-[facility] [address] [place], [address], [email or web address] 07/27/2022 14:15:17 08/01/2022 text/html Belarusian-speaking , accompanied by . Pt presents for folow-up of vaginal c/o, dysuria, and pelvic pain. Vaginal sx resolved with fluconazole ocmpletely. UC showed >50,000 E coli. Awaiting records from [facility] consult. No sx of complicated UTI such as feverl, flank pain, or chills. No recent antibiotic use. Also notes rectal pain. Dull pain. With period. +constipation and alternates with diarrhea. ZAYDA SWANSON, ANP-[address], [address], [facility] 08/01/2022 17:40:15 OBGyn Episode No OBEpisode recorded.
--- OUTSIDE RECORDS SUMMARY | 2024-07-16 09:13 | XMS_ITS | Encounter Summary ---
Author Organization [address] [address] Care Team Providers Care Caterer Helper Name Role Phone Unavailable Primary Care Provider Unavailabl e Reason for Visit * Reason Onset Date Comments Clinic Care Coordination - Initial 05/27/2024 Encounter Details Date Type Department Care Team ([facility] st Contact Info) Description 05/27/[address] [address] Lien Dao PA-C [address] [place] [address] [phone] Clinic Care Coordination - Initial Social History [...] for clinic Zayda Koenig, RN P Clinic [facility]l Please schedule NEW within one week RICK Easley or RICK JARAMILLO functional support analyst Trang Karimi on 05/27/2024 at 10:59 AM documented in this encounter Plan of Treatment Not on file documented as of this encounter Visit Diagnoses Not on filedocumented in this encounter
--- OUTSIDE RECORDS SUMMARY | 2024-07-16 09:13 | XMS_ITS | Encounter Summary ---
Author Organization [place] Address [address] [place] [address] Care Team Providers Care Shore Man Name Role Phone Unavailable Primary Care Provider Unavailabl e Reason for Referral * Mental Health Outpatient (Routine: Next available opening) - Pending Review Specialty Diagnoses / Procedures Referred By Teofilo rob Referred To Contact Diagnoses Depression, unspecified Anxiety disorder, unspecified [place] Phone: tel: fax: Referral ID Status Reason Start Date Expiration Date V isits Requested Visits Authorized [id number] Pending Review 05/23/2024 05/23/2025 1 1 Question Answer Services: Psychotherapy/Counseling (non-medication) Reason for Referral: Individual Psychotherapy/Counseling Patient Scheduling Instructions: [facility] will call you to coordinate your care as prescribed by your provider. If you don't hear from a player services representative within 2 business days, please call . Only select yes if the patient has already been scheduled and requires a referral for insurance. If yes is selected, the referral will NOT route to scheduling for outreach. No Comments Referral Transcribed by external fax Provider: Ofelia Arrington PA-C affiliated with [facility] at [address] [place] [address]. VA: No If yes was is the VA Authorization Number: Phone number: [phone] Fax number: [phone] Please be aware that coverage of these services is subject to the terms and limitations of your health insurance plan. Call member services at your health plan with any benefit or coverage questions. [facility] will call you to coordinate your care as prescribed by your provider. If you don't hear from a player services representative within 2 business days, please [...] Diagnoses Orde r Schedule Adult Mental Health [place] Supervisor Referral Referral Routine: Next available opening Depression, unspecified Anxiety disorder, unspecified Ordered: 05/23/2024 documented as of this encounter Visit Diagnoses Diagnosis Depression, unspecified- Primary Anxiety disorder, unspecified documented in this encounter
--- OUTSIDE RECORDS SUMMARY | 2024-07-16 09:13 | XMS_ITS | Encounter Summary ---
Author Organization [place] Address [address] [place] [address] Care Team Providers Care Electrical Unit Rebuilder Name Role Phone Sarita French MD Primary Care Provider [phone] No Ref-Primary, Physician Primary Care Provider Encounter Details Date Type Department Care Team (Late st Contact Info) Description 05/01/2024 Medical Correspondence [facility] Information Management [address] [facility] [address] [place] [address] Scan, Non-Provider Social History Tobacco Use Types Packs/Day Years Used Date Smoking Tobacco: Never Assessed Comments Unknown Sex and Gender Information Value Date Recorded Sex Assigned at Not on file Legal Sex Female 3:07 PM CDT Gender Identity Not on file Sexual Orientation Not on file documented as of this encounter Plan of Treatment Not on file documented as of this encounter Visit Diagnoses Not on filedocumented in this encounter Care Teams Electrical Unit Rebuilder Relationship Specialty Start Date End Date Sarita French MD [address] [place] [address] F282/2A [place], [place] 484354 PCP - General Psychiatry 05/26/24 05/26/24 No Ref-Primary, Physician PCP - General 05/30/24 documented as of this encounter
--- OUTSIDE RECORDS SUMMARY | 2024-07-16 09:13 | XMS_ITS | Encounter Summary ---
Author Organization [place] Address [address] [place] [address] Care Team Providers Care Charging Board Operator Name Role Phone No Ref-Primary, Physician Primary [...] on filedocumented in this encounter Care Teams Charging Board Operator Relationship Specialty Start Date End Date No Ref-Primary, Physician PCP - General 05/30/24 documented as of this encounter
== END 2024-07-16 09:09 | disposition home or self-care (01) ==
LOC: US 09:09
PROVIDERS: PCP Nurse Practitioner Family; Visit Provider Obstetrics & Gynecology
DX: O24.419 Gestational diabetes mellitus in pregnancy, unspecified control (principal); Z3A.19 19 weeks gestation of pregnancy
CPT/HCPCS: 76811; 76817

== ENCOUNTER 2024-07-18 11:36 | Outpatient (CLI) | payer MEDICAID, SELFPAY ==
--- OUTSIDE RECORDS SUMMARY | 2024-07-18 11:40 | XMS_ITS | Referral Summary ---
Author Organization [place] Address [address] [place] [address] Care Team Providers Care Gizzard Puller Name Role Phone No Ref-Primary, Physician Primary Care Provider Lien Dao PA-C Unavailable Encounters Date Type Department Care Team Description 07/02/2024 Telephone [facility] [address] [place] [address] Lien Dao PA-C Glucose (Called patient to obtain dexcom data for todays visit. ) 06/30/2024 Telephone [facility] [address] [place] [address] Lien Dao PA-C Appointment (Virtual visit 07/02) 05/30/2024 Travel 05/30/2024 1:40 PM CDT Office Visit [facility] [address] [place] [phone] Lien Dao PA-C Pre-existing type 2 diabetes mellitus in in first trimester (Primary Dx); Type 2 diabetes mellitus without complication, unspecified whether exterminator termite insulin use (H); Encounter for supervision of normal in first trimester, unspecified 05/27/2024 Telephone [facility] [address] [place] [phone] Lien Dao PA-C Clinic Care Coordination - Initial 05/23/2024 Transcribe Orders GENERIC EXTERNAL DATA DEPARTMENT Provider, Generic External Data Type 2 diabetes mellitus without complication, unspecified whether exterminator termite insulin use (H) (Primary Dx); Encounter for supervision of normal in first trimester, unspecified 05/23/2024 Transcribe Orders GENERIC EXTERNAL DATA DEPARTMENT Provider, Generic External Data Depression, unspecified (Primary Dx); Anxiety disorder, unspecified 05/01/2024 Medical Correspondence [facility] Information Management [address] [address] Scan, Non-Provider from Last 3 Months Allergies [...] POC [facility] - [address], [place] [address], [facility] LAB[facility]ORY [facility] - [address], [place] [address], [place] from Last 3 Months Care Teams Gizzard Puller Relationship Specialty Start Date End Date No Ref-Primary, Physician PCP - General 05/30/24 Lien Dao PA-C [address] [place], [place] 6054[address] Assigned Endocrinology Provider 06/04/24
--- OUTSIDE RECORDS SUMMARY | 2024-07-18 11:40 | XMS_ITS | Encounter Summary ---
Author Organization [place] Address [address] [place] [address] Care Team Providers Care Paratransit Operator Name Role Phone Sarita French MD Primary Care Provider [phone] No Ref-Primary, Physician Primary Care Provider Encounter Details Date Type Department Care Team (Late st Contact Info) Description 05/01/2024 Medical Correspondence [facility] Information Management [address] [facility] [address] [place] [address] Scan, Non-Provider Social History Tobacco Use Types [...] on filedocumented in this encounter Care Teams Paratransit Operator Relationship Specialty Start Date End Date Sarita French MD [address] [place] [address] F282/2A [place], [place] 588864 PCP - General Psychiatry 05/26/24 05/26/24 No Ref-Primary, Physician PCP - General 05/30/24 documented as of this encounter
--- OUTSIDE RECORDS SUMMARY | 2024-07-18 11:40 | XMS_ITS | Encounter Summary ---
Author Organization [facility] Address [address] [place] [address] Care Team Providers Care Paving Contractor Name Role Phone No Ref-Primary, Physician Primary Care Provider Lien Dao PA-C Unavailable Reason for Visit * Reason Onset Date Comments Appointment 06/30/2024 Virtual visit Encounter Details Date Type Department Care Team ([facility] Contact Info) Description 06/30/[address] [address] Lien Dao PA-C [address] [place] [address] Appointment (Virtual visit 07/02) Social [...] Rachel Rolle CMA - 06/30/2024 2:41 PM AUDIO VISUAL ENGINEER Spoke with patient. Pt is unable to keep appt on 07/02/24. Pt states she has an OB appt at the sametime. Pt states she needs to reschedule. Pt would like a call pt back to reschedule appt. Rachel Rolle CMA on 06/30/2024 at 2:42 PM O VISUAL ENGINEER documented in this encounter Plan of Treatment Not on file documented as of this encounter Visit Diagnoses Not on filedocumented in this encounter Care Teams Paving Contractor Relationship Specialty Start Date End Date No Ref-Primary, Physician PCP - General 05/30/24 Lien Dao PA-C [address] [place] [address] Assigned Endocrinology Provider 06/04/24 documented as of this encounter
--- OUTSIDE RECORDS SUMMARY | 2024-07-18 11:40 | XMS_ITS | Clinical Summary ---
Author Organization [facility] Address [place], [place] [address] Care Team Providers Care Control And Recovery Combat Rescue Name Role Phone Pcp, No Primary Care Provider Unavailshree e Eliud Morgan Unavailable [phone] Nonstaff, Doctor Unavailable Unavailable Allergies No [...] Department Care Team Description 07/03/2024 1:30 PM DATA CONVERSION DEVELOPER Office Visit [facility] [address] [place] [address] Oliver Grijalva MD 04/28/2024 5:21 AM CDT - 04/28/2024 8:12 AM CDT Emergency [facility] [address] [place] [address] Anthony Suero MD Peterson, Christopher Roy, MD Abdominal pain affecting (Primary Dx); Subchorionic hematoma in first trimester, single or unspecified fetus; Ovarian cyst affecting in first trimester, antepartum Discharge Disposition: Home Self Care 04/28/2024 Travel from Last 3 Months Immunizations Name Administration Dates Next Due COVID-19 vaccine ([employer] 30mcg/0.3mL) NOAH PAUL 09/14/2021,07/20/2021 DTaP 03/21/2000,09/21/1999,08/18/1999 [...] None Livin g 9 9 Complications:None Delivery Location:[facility] 2016 35w 6d 2.92 kg (6 lb 7 oz) F Vag None Livin g 9 10 GORDON BARRY ,BG ALVERTO Coyle Delivery Location:[facility] Current Last Filed Vital Signs Vital [...] ULTRASOUND TA Routine 04/28/2024 5:34 AM CDT LABORATORY ANALYST THIN PREP PAP DIAGNOSTIC IMAGED Routine 06/02/2020 2:36 PM CDT from Last 3 Months or Most Recently Relevant to Health Maintenance Results * SCAN-RADIOLOGY REPORT (04/28/2024 7:50 AM CDT) Anatomical Region Laterality Modality Other Scanner OTHER * (ABNORMAL) UA W/ SEDIMENT EXAM REFLEXED PER CRITERIA (04/28/2024 6:25 AM CDT) COLOR Yellow Yellow Color 04/28/2024 6:48 AM [facility] CLARITY Clear Clear Clarity 04/28/2024 6:48 AM T [facility] SPECIFIC GRAVITY,URINE >=1.030(A) 1.010, 1.015, 1.020, 1.025 04/28/2024 6:48 AM [facility] PH,URINE 6.0 6.0, 7.0, 8.0, 5.5, 6.5, 7.5, 8.5 04/28/2024 6:48 AM [facility] UROBILINOGEN, QUALITATIVE Normal Normal EU/dl 04/28/2024 6:48 AM [facility] PROTEIN, URINE Negative Negative mg/dL 04/28/2024 6:48 AM [facility] GLUCOSE, URINE Negative Negative mg/dL 04/28/2024 6:48 AM [facility] KETONES,URINE Negative Negative mg/dL 04/28/2024 6:48 AM [facility] BILIRUBIN,URI NE Negative Negative 04/28/2024 6:48 AM [facility] OCCULT BLOOD,URINE Negative Negative 04/28/2024 6:48 AM [facility] NITRITE Negative Negative 04/28/2024 6:48 AM [facility] LEUKOCYTE ESTERASE Negative Negative 04/28/2024 6:48 AM [facility] Urine URINE SPECIMEN / Unknown Non-Blood / Unknown 04/28/2024 6:25 AM CDT 04/28/2024 6:45 AM CDT Anthony Suero MD URINE [facility] [address] [address] * (ABNORMAL) CBC WITH AUTO DIFFERENTIAL (04/28/2024 6:15 AM [facility]) WHITE BLOOD COUNT 8.2 4.5 - 11.0 thou/cu mm 04/28/2024 6:33 AM [facility] RED BLOOD COUNT 4.05 4.00 - 5.20 mil/cu mm 04/28/2024 6:33 AM [facility] HEMOGLOBIN 11.6(L) 12.0 - 16.0 g/dL 04/28/2024 6:33 AM [facility] HEMATOCRIT 36.6 33.0 - 51.0 % 04/28/2024 6:33 AM [facility] MCV 90 80 - 100 fL 04/28/2024 6:33 AM [facility] MCH 28.6 26.0 - 34.0 pg 04/28/2024 6:33 AM [facility] MCHC 31.7(L) 32.0 - 36.0 g/dL 04/28/2024 6:33 AM [facility] RDW 13.0 11.5 - 15.5 % 04/28/2024 6:33 AM [facility] PLATELET COUNT 235 140 - 440 thou/cu mm 04/28/2024 6:33 AM [facility] MPV 10.8 6.5 - 11.0 fL 04/28/2024 6:33 AM [facility] % NEUT 69.6 % 04/28/2024 6:33 AM [facility] % LYMPH 23.5 % 04/28/2024 6:33 AM [facility] % MONO 5.2 % 04/28/2024 6:33 AM [facility] % EOS 1.6 % 04/28/2024 6:33 AM [facility] % BASO 0.1 % 04/28/2024 6:33 AM [facility] ABSOLUTE NEUTROPHILS 5.7 1.7 - 7.0 thou/cu mm 04/28/2024 6:33 AM [facility] ABSOLUTE LYMPHOCYTES 1.9 0.9 - 2.9 thou/cu mm 04/28/2024 6:33 AM T [facility] ABSOLUTE MONOCYTES 0.4 <0.9 thou/cu mm 04/28/2024 6:33 AM T [facility] ABSOLUTE EOSINOPHILS 0.1 <0.5 thou/cu mm 04/28/2024 6:33 AM T [facility] ABSOLUTE BASOPHILS 0.0 <0.3 thou/cu mm 04/28/2024 6:33 AM T [facility] Blood BLOOD SPECIMEN / Unknown Butterfly / Unknown 04/28/2024 6:15 AM CDT 04/28/2024 6:23 AM CDT Anthony Suero MD HEMATOLOGY [facility] [address] [address] * TYPE AND SCREEN ONLY (04/28/2024 6:15 AM CDT) ABORH O Rh Positive 04/28/2024 7:09 AM [facility] BLOOD BANK ANTIBODY SCREEN Negative Negative 04/28/2024 7:09 AM [facility] BLOOD BANK SPECIMEN EXPIRATION DATE/TIME 05/01/24 23:59 04/28/2024 7:09 AM [facility] BLOOD BANK Blood BLOOD SPECIMEN / Unknown Butterfly / Unknown 04/28/2024 6:15 AM CDT 04/28/2024 6:23 AM CDT Anthony Suero MD BLOOD BANK [facility] [address] [address] * HCG BETA QUANT, (04/28/2024 6:15 AM CDT) HCG BETA QUANT,PREGNANC Y 31,505 mIU/mL 04/28/2024 7:17 AM CDT [facility] Blood BLOOD SPECIMEN / Unknown Butterfly / Unknown 04/28/2024 6:15 AM CDT 04/28/2024 6:23 AM CDT [facility] - 04/28/2024 7:17 AM CDT Expected [...] prior to retesting. Anthony Suero MD CHEMISTRY [facility] [address] [address] * (ABNORMAL) HEPATIC FUNCTION PANEL (04/28/2024 6:15 AM CDT) Pathologist [facility] ALBUMIN 3.9(L) 4.0 - 4.9 g/dL 04/28/2024 7:08 AM CDT [facility] PROTEIN,TOTAL 6.5 6.0 - 8.0 g/dL 04/28/2024 7:08 AM CDT [facility] BILIRUBIN,TOTAL 0.4 0.0 - 1.2 mg/dL 04/28/2024 7:08 AM CDT [facility] BILIRUBIN,DIRECT 0.2 0.0 - 0.2 mg/dL 04/28/2024 7:08 AM [facility] BILIRUBIN,INDIRE CT 0.2 0.2 - 0.8 mg/dL 04/28/2024 7:08 AM [facility] ALK PHOSPHATASE 71 35 - 104 IU/L 04/28/2024 7:08 AM [facility] ALT (SGPT) 7(L) 10 - 35 IU/L 04/28/2024 7:08 AM [facility] AST (SGOT) 16 10 - 35 IU/L 04/28/2024 7:08 AM [facility] Blood BLOOD SPECIMEN / Unknown Butterfly / Unknown 04/28/2024 6:15 AM CDT 04/28/2024 6:23 AM T Anthony Suero MD CHEMISTRY Performing Organization Address City/State/[facility] Co de Phone Number [facility] [address] [address] * (ABNORMAL) BASIC METABOLIC PANEL (04/28/2024 6:15 AM CDT) SODIUM 137 136 - 145 mmol/L 04/28/2024 6:48 AM [facility] POTASSIUM 3.7 3.5 - 5.1 mmol/L 04/28/2024 6:48 AM [facility] CHLORIDE 105 98 - 107 mmol/L 04/28/2024 6:48 AM [facility] CO2,TOTAL 21(L) 22 - 29 mmol/L 04/28/2024 6:48 AM [facility] ANION GAP 11 5 - 18 04/28/2024 6:48 AM [facility] GLUCOSE 143(H) 70 - 99 mg/dL 04/28/2024 6:48 AM [facility] CALCIUM 8.6 8.6 - 10.0 mg/dL 04/28/2024 6:48 AM [facility] BUN 9 6 - 20 mg/dL 04/28/2024 6:48 AM [facility] CREATININE 0.60 0.50 - 0.90 mg/dL 04/28/2024 6:48 AM CDT [facility] BUN/CREAT RATIO 15 10 - 20 4 6:48 AM CDT [facility] eGFR >90 >90 mL/min/1.7 3m2 04/28/2024 6:48 AM CDT [facility] Comment:As of 2021, eG FR is calculated by the CKD-EPI creatinine equation without race adjustment. eGFR can be influenced by muscle mass, exercise, and diet. The reported eGFR is an estimation only and is only applicable if the renal function is stable. Blood BLOOD SPECIMEN / Unknown Butterfly / Unknown 04/28/2024 6:15 AM CDT 04/28/2024 6:23 AM CDT Anthony Suero MD CHEMISTRY [facility] [address] [address] * LABORATORY ANALYST THIN PREP PAP DIAGNOSTIC IMAGED (06/02/2020 2:36 PM CDT) Case Report Gynecologic Cytology Report Case: [id number] Authorizing Provider: Lydia Hua NP Collected: 06/02/2020 1436 Ordering Location: [facility] Received: 06/04/2020 0912 First Screen: Daniela Collins Rescreen: Anushka Amado Specimen: LABORATORY ANALYST ThinPrep Vial Diagnostic, Cervical 06/10/2020 1:19 PM CDT [facility] INTERPRETATION/ RESULT NEGATIVE FOR INTRAEPITHELIAL LESION OR MALIGNANCY (NIL) (none) 06/10/2020 1:19 PM CDT [facility] IMEN ADEQUACY Satisfactory for evaluation Endocervical component present 06/10/2020 1:19 PM CDT [facility] HPV REQUEST HPV and PAP 06/10/2020 1:19 PM CDT [facility] Last Pap Result First Pap/Unknown 1:[address] [facility] [place] Bx Done Today No 06/10/2020 1:19 PM CDT [facility] Additional Information 06/10/2020 1:19 PM CDT [facility] Comment: Interpreted at [facility] - [address], [place] [address] Automated Review Successful 06/10/2020 1:19 PM CDT [facility] Comment:Specimen processed s uccessfully by automated slab polisher device, [employer] System, [employer] ANCILLARY TESTING LABORATORY ANALYST HPV Ordered, Please see separate report 06/10/2020 1:19 PM CDT [facility] Note The pap test is [...] and malignant lesions. 06/10/2020 1:19 PM CDT [facility] Other (Cervical) 06/02/2020 2:36 PM CDT 06/04/2020 9:12 AM CDT Lydia Hua NP PATHOLOGY/CYTOLOGY [facility] [address] [place] [address], [place] from Last 3 Months or Most [...] 7:00 AM 03/11/2014 4:12 PM Care Teams Control And Recovery Combat Rescue Relationship Specialty Start Date End Date Pcp, No . PCP - General 12/06/22 Eliud Morgan PA . Physician Career Development Engineer 12/06/22 Nonstaff, Doctor NON STAFF DOCTOR 12/26/13
--- OUTSIDE RECORDS SUMMARY | 2024-07-18 11:40 | XMS_ITS | Encounter Summary ---
Author Organization [address] [address] Care Team Providers Care Finishing And Shipping Supervisor Name Role Phone Unavailable Primary Care Provider Unavailabl e Reason for Visit * Reason Onset Date Comments Clinic Care Coordination - Initial 05/27/2024 Encounter Details Date Type Department Care Team ([facility] st Contact Info) Description 05/27/[address] [address] Lien Dao PA-C [address] [place] [phone] Clinic Care Coordination - Initial Social History [...] for clinic Zayda Koenig, RN P Clinic [id number] Please schedule NEW within one week RICK Easley or RICK JARAMILLO environmental engineering intern Trang Karimi on 05/27/2024 at 10:59 AM documented in this encounter Plan of Treatment Not on file documented as of this encounter Visit Diagnoses Not on filedocumented in this encounter
--- OUTSIDE RECORDS SUMMARY | 2024-07-18 11:40 | XMS_ITS | Encounter Summary ---
Author Organization [facility] Address [address] [place] [address] Care Team Providers Care Durability Engineer Name Role Phone No Ref-Primary, Physician Primary [...] on filedocumented in this encounter Care Teams Durability Engineer Relationship Specialty Start Date End Date No Ref-Primary, Physician PCP - General 05/30/24 documented as of this encounter
--- OUTSIDE RECORDS SUMMARY | 2024-07-18 11:40 | XMS_ITS | Encounter Summary ---
Author Organization [facility] Address [address] [place] [address] Care Team Providers Care Supervisor Name Role Phone Unavailable Primary Care Provider Unavailabl e Reason for Referral * Mental Health Outpatient (Routine: Next available opening) - Pending Review Specialty Diagnoses / Procedures Referred By Teofilo rob Referred To Contact Diagnoses Depression, unspecified Anxiety disorder, unspecified N[place] Phone: tel: fax: Referral ID Status Reason Start Date Expiration Date V isits Requested Visits Authorized [id number] Pending Review 05/23/2024 05/23/2025 1 1 Question Answer Services: Psychotherapy/Counseling (non-medication) Reason for Referral: Individual Psychotherapy/Counseling Patient Scheduling Instructions: [facility] will call you to coordinate your care as prescribed by your provider. If you don't hear from a account manager sales representative within 2 business days, please call . Only select yes if the patient has already been scheduled and requires a referral for insurance. If yes is selected, the referral will NOT route to scheduling for outreach. No Comments Referral Transcribed by external fax Provider: Ofelia Arrington PA-C affiliated with [facility] at [address] [place] [address]. VA: No If yes was is the VA Authorization Number: Phone number: [phone] Fax number: [phone] Please be aware that coverage of these services is subject to the terms and limitations of your health insurance plan. Call member services at your health plan with any benefit or coverage questions. [facility] will call you to coordinate your care as prescribed by your provider. If you don't hear from a account manager sales representative within 2 business days, please [...] Diagnoses Orde r Schedule Adult Mental Health Hospitality Team Member Referral Referral Routine: Next available opening Depression, unspecified Anxiety disorder, unspecified Ordered: 05/23/2024 documented as of this encounter Visit Diagnoses Diagnosis Depression, unspecified- Primary Anxiety disorder, unspecified documented in this encounter
--- OUTSIDE RECORDS SUMMARY | 2024-07-18 11:40 | XMS_ITS | Encounter Summary ---
Author Organization [facility] Address [address] [place] [address] Care Team Providers Care Drilling Rig Operator Name Role Phone No Ref-Primary, Physician Primary Care Provider Reason for Referral * Consultation (Routine: Next available opening) - Pending Review Specialty Diagnoses / Procedures Referred By Teofilo t Referred To Contact Diabetes Education Diagnoses Pre-existing type 2 diabetes mellitus in in first trimester Lien Dao PA-C [address] [place] [address] Phone: tel: fax: Referral ID Status Reason Start Date Expiration Date V isits Requested Visits Authorized [id number] Pending Review 06/01/2024 06/01/2025 1 1 Question [...] Needs: None, Additional Insulin Training Scheduling Instructions: [facility] will call you to coordinate your care as prescribed by your provider. If you don't hear from a industrial relations representative within 2 business days, please call [...] and [id number]) and Medical Nutrition Therapy (Codes 55802 and [address]842) benefits and ask which blood glucose monitor brands are covered by your plan. Please bring the following with you to your appointment: 1. List of current medications 2. List of Blood Glucose Monitor brands that are covered by your insurance plan 3. Blood Glucose Monitor and log book 4. Food records for the 3 days prior to your visit [facility] will call you to coordinate your care as prescribed by your provider. If you don't hear from a industrial relations representative within 2 business days, please call Reason for Visit * Reason Comments New Patient Diabetes GDM * Consultation (Routine) - Pending Review Specialty Diagnoses / Procedures Referred By Contac t Referred To Contact Endocrinology, Diabetes, and Metabolism Diagnoses Type 2 diabetes mellitus without complication, unspecified whether senior care insulin use (H) Encounter for supervision of normal in first trimester, unspecified November Phone: tel: fax: Referral ID Status Reason Start Date Expiration Date V isits Requested Visits Authorized [id number] Pending Review 05/23/2024 05/23/2025 1 1 Encounter Details Date Type Department Care Team (Late st Contact Info) Description 05/30/2024 1:40 PM CDT Office Visit [address] [address] Lien Dao PA-C [address] [place], [place] [phone] Pre-existing type 2 diabetes mellitus in in first trimester (Primary Dx); Type 2 diabetes mellitus without complication, unspecified whether termite treater helper insulin use (H); Encounter for supervision of [...] blood glucose Toyin Burgos CMA Adult Endocrinology [facility] * Lien Dao PA-C - 05/30/2024 1:40 [...] visit. She is not sure if the chart changer will also help with medication, so I [...] . I have reviewed Care Everywhere including [facility], [facility], [place], [facility], [facility] , [facility], [place] lab reports, imaging reports and provider notes [...] being followed closely by an OB in [place]. She also has a chart changer appt scheduled for Sunday. Endocrine relevant labs [...] Diagnoses Orde r Schedule Adult Diabetes Education Polisher Implant Referral Referral Routine: Next available opening Pre-existing [...] POC [facility] - [address], [place] [address], [facility] MG LABORATORY [facility] - [address], [place] [address], [facility] documented in this encounter Visit Diagnoses Diagnosis Pre-existing type 2 diabetes mellitus in in first trimester- Primary Diabetes mellitus of mother, complicating , childbirth, or the puerperium, unspecified as to episode of care Type 2 diabetes mellitus without complication, unspecified whether termite treater helper insulin use (H) Encounter for supervision of normal in first trimester, unspecified documented in this encounter Care Teams Drilling Rig Operator Relationship Specialty Start Date End Date No Ref-Primary, Physician PCP - General 05/30/24 documented as of this encounter
--- OUTSIDE RECORDS SUMMARY | 2024-07-18 11:40 | XMS_ITS | Clinical Summary ---
Author Organization [facility] Address [address] [place] [address] Care Team Providers Care Oilfield Plant And Field Operator Name Role Phone No Ref-Primary, Physician [...] Type Department Care Team Description 07/02/[address] [address] Lien Dao PA-C Glucose (Called patient to obtain dexcom data for todays visit. ) 06/30/2024 Telephone [facility] [id number] [place] [address] Feliberto, Lien, PA-C Appointment (Virtual visit 07/02) 05/30/2024 1:40 PM CDT Office Visit [facility] [address] [place] [phone] Lien Dao PA-C Pre-existing type 2 diabetes mellitus in in first trimester (Primary Dx); Type 2 diabetes mellitus without complication, unspecified whether usp insulin use (H); Encounter for supervision of normal in first trimester, unspecified 05/30/2024 Travel 05/27/2024 Telephone [facility] [address] [place] [address] Lien Dao PA-C Clinic Care Coordination - Initial 05/23/2024 Transcribe Orders GENERIC EXTERNAL DATA DEPARTMENT Provider, Generic External Data Type 2 diabetes mellitus without complication, unspecified whether intermediate project manager insulin use (H) (Primary Dx); Encounter for supervision of normal in first trimester, unspecified 05/23/2024 Transcribe Orders GENERIC EXTERNAL DATA DEPARTMENT Provider, Generic External Data Depression, unspecified (Primary Dx); Anxiety disorder, unspecified 05/01/2024 Medical Correspondence [facility] Information Management [address] [address] Scan, Non-Provider from Last 3 Months Social [...] 2:08 PM CDT Lien SANCHEZ - [facility] POCT Final Result MG LABORATORY POC [facility] [address], [place] [address], [facility] [address], [place] [address], [facility] from Last 3 Months Care Teams Oilfield Plant And Field Operator Relationship Specialty Start Date End Date No Ref-Primary, Physician PCP - General 05/30/24 Lien Dao PA-C [address] [place] [address] Assigned Endocrinology Provider 06/04/24
--- OUTSIDE RECORDS SUMMARY | 2024-07-18 11:40 | XMS_ITS | Encounter Summary ---
Author Organization [facility] Address [address] [place] [id number] Care Team Providers Care Dividing Machine Operator Helper Name Role Phone Unavailable Primary Care Provider Unavailabl e Reason for Referral * Consultation (Routine) - Pending Review Specialty Diagnoses / Procedures Referred By Teofilo t Referred To Contact Endocrinology, Diabetes, and Metabolism Diagnoses Type 2 diabetes mellitus without complication, unspecified whether termite renewal inspector insulin use (H) Encounter for supervision of normal in first trimester, unspecified Ofelia Arrington Phone: tel: fax: Referral ID Status Reason Start Date Expiration Date V isits Requested Visits Authorized [id number] Pending Review 05/23/2024 05/23/2025 1 1 Question Answer Reason for Referral: Diabetes Diabetes State: Gestational Scheduling Instructions: [employer] will call you to coordinate your care as prescribed by the provider. If you don t hear from a technical sales representatives within 2 business days, please call [phone]. Comments Referral Transcribed by external fax Provider: TY Arrington affiliated with [facility] and clinic at [address] [place] [address]. [place]: No If yes was is the VA Authorization Number: Phone number: [phone] Fax number: [phone] Please be aware that coverage of these services is subject to the terms and limitations of your health insurance plan. Call member services at your health plan with any benefit or coverage questions. [employer] will call you to coordinate your care as prescribed by the provider. If you don t hear from a technical sales representatives within 2 business days, please call [phone]. Encounter Details Date Type Department Care Team (Late st Contact Info) Description 05/23/2024 Transcribe Orders GENERIC EXTERNAL DATA DEPARTMENT Provider, Generic External Data Type 2 diabetes mellitus without complication, unspecified whether termite renewal inspector insulin use (H) (Primary Dx); Encounter for [...] Associated Diagnoses Orde r Schedule Adult Endocrinology Emblem Drawer In Referral Referral Routine Type 2 diabetes mellitus without complication, unspecified whether termite renewal inspector insulin use (H) Encounter for supervision of normal in first trimester, unspecified Expected: 05/23/2024 (Approximate), Expires: 05/23/2025 documented as of this encounter Visit Diagnoses Diagnosis Type 2 diabetes mellitus without complication, unspecified whether snf insulin use (H)- Primary Encounter for supervision of normal in first trimester, unspecified documented in this encounter
--- OUTSIDE RECORDS SUMMARY | 2024-07-18 11:40 | XMS_ITS | Encounter Summary ---
Author Organization [facility] Address [address] [place] [id number] Care Team Providers Care Region Manager Name Role Phone No Ref-Primary, Physician Primary Care Provider Lien Dao PA-C Unavailable Reason for Visit * Reason Onset Date Comments Glucose 07/02/2024 Called patient t o obtain dexcom data for todays visit. Encounter Details Date Type Department Care Team ([facility] Contact Info) Description 07/02/[address] [id number] Lien Dao PA-C [address] [place] [address] Glucose (Called patient to obtain [...] she has not been wearing them. Vishnu Cadrona on 07/02/2024 at 10:23 AM WAREHOUSE DEVELOPER documented in this encounter Plan of Treatment Not on file documented as of this encounter Visit Diagnoses Not on filedocumented in this encounter Care Teams Region Manager Relationship Specialty Start Date End Date No Ref-Primary, Physician PCP - General 05/30/24 Lien Dao PA-C [address] [place] [address] Assigned Endocrinology Provider 06/04/24 documented as of this encounter
== END 2024-07-18 11:37 | disposition home or self-care (01) ==
LOC: NFLDREF 11:38
PROVIDERS: PCP Nurse Practitioner Family; Visit Provider Obstetrics & Gynecology
DX: R10.2 Pelvic and perineal pain (principal)
CPT/HCPCS: 87086

== ENCOUNTER 2024-07-30 13:36 | Outpatient (CLI) | payer MEDICAID, SELFPAY | END 2024-07-30 13:37 | disposition home or self-care (01) | LOC: US 13:36 | PROVIDERS: PCP Nurse Practitioner Family; Visit Provider Obstetrics & Gynecology | DX: O09.892 Supervision of other high risk pregnancies, second trimester (principal); Z3A.21 21 weeks gestation of pregnancy | CPT/HCPCS: 76815; 76817 ==

== ENCOUNTER 2024-08-15 09:07 | Outpatient (CLI) | payer OTHER, SELFPAY ==
--- NOTE | 2024-08-15 09:15 | CRLHL7_ITS ---
For Patients: As a result of the Century Cures Act, medical imaging exams and procedure reports are released immediately into your electronic medical record. You may view this report before your referring provider. If you have questions, please contact your health care provider. INDICATION: cervical length COMPARISON: 07/30/2024 TECHNIQUE: Real-time de los santos-scale imaging of the pelvis was performed using transabdominal and transvaginal technique. FINDINGS/IMPRESSION: heart rate 131 beats per minute. Amniotic fluid single deepest pocket 4.7 cm. position is breech. Placenta is fundal. Cervix is closed and measures 4.7 cm. No funneling. Dictated by Cj Melgar MD @ 08/15/2024 10:12:53 AM (Electronically Signed)
== END 2024-08-15 09:08 | disposition home or self-care (01) ==
LOC: US 09:08
PROVIDERS: PCP Nurse Practitioner Family; Visit Provider Obstetrics & Gynecology
DX: O09.899 Supervision of other high risk pregnancies, unspecified trimester (principal); R30.0 Dysuria
CPT/HCPCS: 76815; 76817; 87086

== ENCOUNTER 2024-08-15 10:53 | Outpatient (CLI) | payer MEDICAID, SELFPAY | END 2024-08-15 10:54 | disposition home or self-care (01) | LOC: NFLDREF 10:54 | PROVIDERS: PCP Nurse Practitioner Family; Visit Provider Obstetrics & Gynecology | DX: R30.0 Dysuria (principal) | CPT/HCPCS: 87086 ==

== ENCOUNTER 2024-09-09 11:09 | Outpatient (CLI) | payer OTHER, SELFPAY ==
[2024-09-09 11:41] VITALS: RESP 16; TEMP 36.5; O2SAT 98
[2024-09-09 11:43] VITALS: BP 108/62; PULSE 69; PULSE 71; O2SAT 98
[2024-09-09] MEDS: PROCHLORPERAZINE 10 MG TABLET 5 MG PO (12:46)
[2024-09-09] MEDS: LACTATED RINGERS 1000 ML 1,000 ML 900 ML IV (12:47)
[2024-09-09 13:19] LABS: Basophils Absolute Auto 0.01 K/uL (0.00-0.30); Basophils Percent Auto 0.1 % (0.0-3.0); Eosinophils Percent Auto 1.1 % (0.0-7.0); Hematocrit 32.2 % (33.0-51.0); Hemoglobin* 10.6 gm/dL (12.0-16.0); Immature Granulocytes Abs Auto 0.08 K/uL (0.00-0.30); Immature Granulocytes Pct Auto 0.9 %; Lymphocytes Percent Auto 20.7 % (20-44); Mean Corpuscular HGB Conc 33 gm/dL (32-36); Mean Corpuscular Hemoglobin 29 pg (26-34); Mean Corpuscular Volume 87 fL (80-100); Monocytes Percent Auto 4.6 % (0.0-11.0); Neutrophils Percent Auto 72.6 % (42.0-72.0); Platelet Count* 228 K/uL (140-440); RDW Coefficient of Variation % 12.5 % (11.5-15.5); White Blood Count* 9.19 K/uL (4.50-11.00)
[2024-09-09 13:21] LABS: Slide Review Reflex No
[2024-09-09 13:32] LABS: Albumin* 3.5 g/dL (3.3-5.0); Chloride* 107 mmol/L (96-114); Sodium* 136 mmol/L (135-149)
[2024-09-09 13:33] LABS: Potassium* 4.2 mmol/L (3.6-5.1)
[2024-09-09 13:35] LABS: Alanine Aminotransferase* 16 U/L (4-35); Anion Gap 6 mEq/L (7-15); Aspartate Amino Transferase* 24 U/L (12-35); Blood Urea Nitrogen* 7 mg/dL (5-24); Carbon Dioxide* 23 mmol/L (20-32); Creatinine* 0.4 mg/dL (0.5-1.5); Estimated Glomerular Filt Rate 134 ml/min
[2024-09-09 13:36] LABS: Alkaline Phosphatase* 93 U/L (40-150); Bilirubin Total* 0.3 mg/dL (0.1-1.5); Calcium* 8.7 mg/dL (8.4-10.6); Glucose* 120 mg/dL (60-115); Total Protein* 6.4 g/dL (6.0-8.3)
--- NOTE | 2024-09-24 09:34 | PC.OBNST ---
NST Note NST Note Start: 09/24/24 09:31 Freq: Status: Active Protocol: Document 09/09/24 14:50 ANABAPTISM (Rec: 09/24/24 09:34 ANABAPTISM [id number]) NST Note 6 Para (# of births) 5 EDC 12/08/24 Gestational Age In Weeks & Days 29 Weeks & 2 Days Patient Presented with Complaint(s) of Nausea and vomiting Reactive Yes Appropriate for Gestational Age Yes NIKKI Duron Date 09/09/24 Reactive Yes Appropriate for Gestational Age Yes NIKKI Ledezma Date 09/09/24 OB NST charge Yes Complete NST Note via Write Note Yes The provider's electronic signature indicates the NST is reactive/appropriate for gestational age. *Note to provider: If an addendum is required, open the patient's chart and click on the note under the Nurse/Allied Health tab.
== END 2024-09-09 14:35 | disposition home or self-care (01) ==
LOC: OB OUT 11:09 → OB 11:09
PROVIDERS: PCP Nurse Practitioner Family; Visit Provider Obstetrics & Gynecology
DX: O24.419 Gestational diabetes mellitus in pregnancy, unspecified control (principal); Z3A.28 28 weeks gestation of pregnancy
CPT/HCPCS: 36415; 59025; 80053; 85025; G0463; A9270; J7120

== ENCOUNTER 2024-09-15 08:41 | Outpatient (CLI) | payer OTHER, SELFPAY ==
--- NOTE | 2024-09-15 09:15 | CRLHL7_ITS ---
For Patients: As a result of the Cures Act, medical imaging exams and procedure reports are released immediately into your electronic medical record. You may view this report before your referring provider. If you have questions, please contact your health care provider. OB ULTRASOUND RUPERT by LMP: 12/08/2024. GA: 28 w, 0 d. Single. Comparison: 08/15/2024, 07/30/2024, 07/16/2024. INDICATION: Type 2 diabetes mellitus. Evaluate growth. TECHNIQUE: Real time de los santos scale imaging of the fetus was performed. Transabdominal. CERVIX: Visualized. Measurement: 3.1 cm. POSITIONING: Breech. AMNIOTIC FLUID: 4.6 cm. SDP (N: greater than 2 x 1 cm) PLACENTA: Technique: Transabdominal. PLACENTA POSITION: Fundal. DOPPLER: heart rate: 139 bpm. BIOMETRY: BPD: 6.98 cm. 28 w, 0 d, 39.4 percent. HC: 26.6 cm. 29 w, 0 d, 48.9 percent. AC: 26.0 cm. 30 w, 1 d, 93.8 percent. FL: 5.3 cm. 28 w, 0 d, 34.4 percent. FL/AC ratio: 20.2 percent. HC/AC ratio: 1.0. EFW: 1351 g. Weight: 3 lbs, 0 oz. age by this US: 28 w, 6 d. RUPERT by this US: 12/02/2024. Percentile by RUPERT: 82.0 percent. IMPRESSION: 1. Sonographic gestational age 28 weeks 6 days and sonographic due date 12/02/2024. Sonographic age six days ahead of the clinical age. 2. Estimated weight 82nd percentile. Abdominal circumference 94th percentile. Cj Melgar M.D. Diagnostic Radiologist [email or web address] CORINA/adi joshi/Dictated by: Cj Melgar MD @ 09/15/2024 11:04:00 AM (Electronically Signed)
== END 2024-09-15 08:42 | disposition home or self-care (01) ==
LOC: US 08:42
PROVIDERS: PCP Nurse Practitioner Family; Visit Provider Obstetrics & Gynecology
DX: O24.419 Gestational diabetes mellitus in pregnancy, unspecified control (principal); Z3A.28 28 weeks gestation of pregnancy
CPT/HCPCS: 76816; 86592

== ENCOUNTER 2024-09-15 09:55 | Outpatient (CLI) | payer OTHER, SELFPAY | END 2024-09-15 09:56 | disposition home or self-care (01) | LOC: NFLDREF 09-17 09:15 | PROVIDERS: PCP Nurse Practitioner Family; Referring Provider Nurse Practitioner Family; Visit Provider Obstetrics & Gynecology | DX: Z34.93 Encounter for supervision of normal pregnancy, unspecified, third trimester (principal); Z3A.28 28 weeks gestation of pregnancy | CPT/HCPCS: 86592 ==

== ENCOUNTER 2024-09-24 12:07 | Outpatient (CLI) | payer OTHER, SELFPAY ==
[2024-09-24 15:38] LABS: Chlamydia DNA Amplified* NOT DETECTED (No Detected); GC DNA Amplified* NOT DETECTED (No Detected)
== END 2024-09-24 12:08 | disposition home or self-care (01) ==
LOC: NFLDREF 12:07
PROVIDERS: PCP Nurse Practitioner Family; Visit Provider Registered Nurse
DX: N89.8 Other specified noninflammatory disorders of vagina (principal); Z11.3 Encounter for screening for infections with a predominantly sexual mode of transmission
CPT/HCPCS: 87491; 87591

== ENCOUNTER 2024-10-13 08:54 | Outpatient (CLI) | payer OTHER, SELFPAY | END 2024-10-13 08:55 | disposition home or self-care (01) | PROVIDERS: PCP Nurse Practitioner Family; Visit Provider Obstetrics & Gynecology | DX: O24.419 Gestational diabetes mellitus in pregnancy, unspecified control (principal); O36.63X0 Maternal care for excessive fetal growth, third trimester, not applicable or unspecified; Z3A.32 32 weeks gestation of pregnancy | CPT/HCPCS: 76816; 76819 ==

== ENCOUNTER 2024-10-16 09:00 | Outpatient (CLI) | payer OTHER, SELFPAY ==
--- NOTE | 2024-10-16 09:15 | CRLHL7_ITS ---
For Patients: As a result of the Cures Act, medical imaging exams and procedure reports are released immediately into your electronic medical record. You may view this report before your referring provider. If you have questions, please contact your health care provider. OB ULTRASOUND BIOPHYSICAL PROFILE LMP: 03/03/2024. RUPERT by LMP: 12/08/2024. GA: 32 w, 3 d. Single. Comparison: 10/13/2024, 09/15/2024, 08/15/2024. INDICATION: Type 2 diabetes without complications. TECHNIQUE: Real time grayscale imaging of the fetus was performed. Transabdominal. CERVIX: Not visualized. POSITIONING: Vertex. AMNIOTIC FLUID: 4.9 cm. SDP (N: greater than 2 x 1 cm) BIOPHYSICAL PROFILE: 2: Gross body movements 2: tone 2: Respiratory activity 2: Amniotic fluid SDP (N: greater than 2 x 1 cm) 03/20: Total score PLACENTA: Technique: Transabdominal. PLACENTA POSITION: Anterior. DOPPLER: heart rate: 145 bpm. IMPRESSION: Normal biophysical profile 03/20. Cj Melgar M.D. Diagnostic Radiologist [email or web address] COR[place]/adi joshi/Dictated by: Cj Melgar MD @ 10/16/2024 1:06:00 PM (Electronically Signed)
== END 2024-10-16 09:01 | disposition home or self-care (01) ==
LOC: US 09:01
PROVIDERS: PCP Nurse Practitioner Family; Visit Provider Obstetrics & Gynecology
DX: O24.419 Gestational diabetes mellitus in pregnancy, unspecified control (principal); Z3A.32 32 weeks gestation of pregnancy
CPT/HCPCS: 76819

== ENCOUNTER 2024-10-20 09:11 | Outpatient (CLI) | payer OTHER, SELFPAY | END 2024-10-20 09:12 | disposition home or self-care (01) | LOC: US 09:12 | PROVIDERS: PCP Nurse Practitioner Family; Visit Provider Obstetrics & Gynecology | DX: O24.419 Gestational diabetes mellitus in pregnancy, unspecified control (principal) | CPT/HCPCS: 76819 ==

== ENCOUNTER 2024-10-27 09:10 | Outpatient (CLI) | payer OTHER, SELFPAY ==
--- NOTE | 2024-10-27 09:15 | CRLHL7_ITS ---
For Patients: As a result of the Cures Act, medical imaging exams and procedure reports are released immediately into your electronic medical record. You may view this report before your referring provider. If you have questions, please contact your health care provider. OB ULTRASOUND BIOPHYSICAL PROFILE LMP: 03/03/2024. RUPERT by LMP: 12/08/2024. GA: 34 w, 0 d. Single. Comparison: 10/20/2024, 10/16/2024, 10/13/2024. INDICATION: Type 2 diabetes mellitus. TECHNIQUE: Real time grayscale imaging of the fetus was performed. Transabdominal. CERVIX: Not visualized. POSITIONING: Vertex. AMNIOTIC FLUID: 4.8 cm. SDP (N: greater than 2 x 1 cm) BIOPHYSICAL PROFILE: 2: Gross body movements 2: tone 2: Respiratory activity 2: Amniotic fluid SDP (N: greater than 2 x 1 cm) 03/20: Total score PLACENTA: Technique: Transabdominal. PLACENTA POSITION: Fundal. DOPPLER: heart rate: 142 bpm. IMPRESSION: Normal biophysical profile 03/20. Cj Melgar M.D. Diagnostic Radiologist [email or web address] COR[place]/adi joshi/Dictated by: Cj Melgar MD @ 10/27/2024 9:59:00 AM (Electronically Signed)
== END 2024-10-27 09:11 | disposition home or self-care (01) ==
LOC: US 09:11
PROVIDERS: PCP Nurse Practitioner Family; Visit Provider Obstetrics & Gynecology
DX: O24.419 Gestational diabetes mellitus in pregnancy, unspecified control (principal); Z3A.34 34 weeks gestation of pregnancy
CPT/HCPCS: 76819; 82728

== ENCOUNTER 2024-10-27 09:41 | Outpatient (CLI) | payer OTHER, SELFPAY | END 2024-10-27 09:42 | disposition home or self-care (01) | LOC: NFLDREF 10-28 06:08 | PROVIDERS: PCP Nurse Practitioner Family; Referring Provider Nurse Practitioner Family; Visit Provider Obstetrics & Gynecology | DX: Z34.93 Encounter for supervision of normal pregnancy, unspecified, third trimester (principal); Z3A.34 34 weeks gestation of pregnancy | CPT/HCPCS: 82728 ==

== ENCOUNTER 2024-10-30 09:09 | Outpatient (CLI) | payer OTHER, SELFPAY ==
--- NOTE | 2024-10-30 09:15 | CRLHL7_ITS ---
For Patients: As a result of the Cures Act, medical imaging exams and procedure reports are released immediately into your electronic medical record. You may view this report before your referring provider. If you have questions, please contact your health care provider. OB ULTRASOUND BIOPHYSICAL PROFILE, 10/30/2024 CLINICAL HISTORY: Type 2 diabetes. TECHNIQUE: Real time de los santos scale imaging of the fetus was performed. COMPARISON: 10/27/2024, 10/23/2024, 10/20/2024, 10/16/2024. FINDINGS: Gestation: Single. RUPERT by LMP: 12/08/2024. GA: 34 weeks 3 days. CERVIX: Not visualized. POSITIONING: Vertex. AMNIOTIC FLUID: 4.8 cm SDP. BIOPHYSICAL PROFILE: Gross Body Movements: 2 Tone: 2 Respiratory Activity: 2 Amniotic Fluid SDP: 2 Total Score: 8/8 PLACENTA: Technique: TA. Placenta Position: Anterior. DOPPLERS: Heart Rate: 142 bpm. IMPRESSION: Normal biophysical profile score of 8/8. Cj Melgar M.D. Diagnostic Radiologist [email or web address] Transcribed: 11:00 am DW/Dictated by: Cj Melgar MD @ 10/30/2024 9:45:00 AM (Electronically Signed)
== END 2024-10-30 09:10 | disposition home or self-care (01) ==
LOC: US 09:09
PROVIDERS: PCP Nurse Practitioner Family; Visit Provider Obstetrics & Gynecology
DX: O24.419 Gestational diabetes mellitus in pregnancy, unspecified control (principal); Z3A.34 34 weeks gestation of pregnancy
CPT/HCPCS: 76819

== ENCOUNTER 2024-11-03 09:10 | Outpatient (CLI) | payer OTHER, SELFPAY ==
--- NOTE | 2024-11-03 09:15 | CRLHL7_ITS ---
For Patients: As a result of the Century Cures Act, medical imaging exams and procedure reports are released immediately into your electronic medical record. You may view this report before your referring provider. If you have questions, please contact your health care provider. INDICATION: Type 2 diabetes TECHNIQUE: Limited transabdominal two-dimensional de los santos-scale ultrasound examination. COMPARISON: 10/30/2024 FINDINGS: There is a living fetus in cephalic lie with gestational age of 35 weeks and EDC of 12/08/2024. The biophysical profile score is 8/8 with component scores of 2 for breathing movements, 2 for gross body movements, 2 for tone and 2 for amniotic fluid/SDP. The heart rate is measured at 138 beats per minute and the rhythm appears regular. The amniotic fluid volume is within normal limits with single deepest pocket of 5.0 cm. The placenta is fundal and superior to the cervical os. There is no evidence of previa. IMPRESSION: 1. Living fetus in cephalic lie with gestational age of 35 weeks and EDC of 12/08/2024. 2. Biophysical profile score is 8/8. Dictated by Oliver Ariaza MD @ 11/06/2024 9:17:30 AM (Electronically Signed)
== END 2024-11-03 09:11 | disposition home or self-care (01) ==
LOC: US 09:11
PROVIDERS: PCP Nurse Practitioner Family; Visit Provider Obstetrics & Gynecology
DX: O24.113 Pre-existing type 2 diabetes mellitus, in pregnancy, third trimester (principal); Z3A.35 35 weeks gestation of pregnancy
CPT/HCPCS: 76819; 82239; 84450; 84460; 87081; 87653

== ENCOUNTER 2024-11-03 10:09 | Outpatient (CLI) | payer OTHER, SELFPAY ==
[2024-11-04 13:58] LABS: Strep B DNA Probe Negative (Negative)
[2024-11-04 14:03] LABS: Strep B Susceptibility Needed? No
== END 2024-11-03 10:10 | disposition home or self-care (01) ==
PROVIDERS: PCP Nurse Practitioner Family; Visit Provider Obstetrics & Gynecology
DX: Z34.83 Encounter for supervision of other normal pregnancy, third trimester (principal)
CPT/HCPCS: 82239; 84450; 84460; 87081; 87653

== ENCOUNTER 2024-11-06 09:07 | Outpatient (CLI) | payer OTHER, SELFPAY ==
--- NOTE | 2024-11-06 09:15 | CRLHL7_ITS ---
For Patients: As a result of the Century Cures Act, medical imaging exams and procedure reports are released immediately into your electronic medical record. You may view this report before your referring provider. If you have questions, please contact your health care provider. INDICATION: Type 2 diabetes TECHNIQUE: Limited transabdominal two-dimensional de los santos-scale ultrasound examination. COMPARISON: 11/03/2024 FINDINGS: There is a living fetus in cephalic lie with gestational age of 35 weeks 3 days an EDC of 12/08/2024. The biophysical profile score is 8/8 with component scores of 2 for breathing movements, 2 for gross body movements, 2 for tone and 2 for amniotic fluid/SDP. The heart rate is measured at 129 beats per minute and the rhythm appears regular. The amniotic fluid volume is within normal limits with single deepest pocket of 6 cm. The placenta is fundal and superior to the cervical os. There is no evidence of previa. IMPRESSION: 1. Living fetus in cephalic lie with gestational age of 35 weeks 3 days and EDC of 12/08/2024. 2. Biophysical profile score is 8/8. Dictated by Oliver Araiza MD @ 11/07/2024 6:32:17 AM (Electronically Signed)
== END 2024-11-06 09:08 | disposition home or self-care (01) ==
LOC: US 09:08
PROVIDERS: PCP Nurse Practitioner Family; Visit Provider Obstetrics & Gynecology
DX: O24.419 Gestational diabetes mellitus in pregnancy, unspecified control (principal); Z3A.35 35 weeks gestation of pregnancy
CPT/HCPCS: 76819

== ENCOUNTER 2024-11-10 08:44 | Outpatient (CLI) | payer OTHER, SELFPAY ==
--- NOTE | 2024-11-10 09:15 | CRLHL7_ITS ---
For Patients: As a result of the Cures Act, medical imaging exams and procedure reports are released immediately into your electronic medical record. You may view this report before your referring provider. If you have questions, please contact your health care provider. OB ULTRASOUND BIOPHYSICAL PROFILE RUPERT by LMP/US: 12/08/2024. GA: 36 w, 0 d. Single. Comparison: 11/06/2024, 11/03/2024,10/30/2024. INDICATION: Type 2 diabetes. TECHNIQUE: Real time de los santos scale imaging of the fetus was performed. Transabdominal. CERVIX: Not visualized. POSITIONING: Vertex. AMNIOTIC FLUID: 6.2 cm. SDP (N: greater than 2 x 1 cm) BIOPHYSICAL PROFILE: Total score: 2. Gross body movements: 2. tone: 2. Respiratory activity: 2. Amniotic fluid: 2. (SDP N: greater than 2 x 1 cm) PLACENTA: Technique: Transabdominal. PLACENTA POSITION: Fundal. DOPPLER: heart rate: 138 bpm. BIOMETRY: BPD: 9 cm. 36 w, 2 d, 66 percent. HC: 32.5 cm. 36 w, 5 d, 37 percent. AC: 37.7 cm. 41 w, 4 d, >97 percent. FL: 7.2 cm. 36 w, 6 d, 69 percent. FL/AC ratio: 19.12 percent. HC/AC ratio: .86. EFW: 3767 g. Weight: 8 lbs, 5 oz. age by this US: 37 w, 6 d. RUPERT by this US: 11/25/2024. Percentile by RUPERT: >97 percent. IMPRESSION: 1. Normal biophysical profile 03/20. 2. Sonographic gestational age 37 weeks 6 days and sonographic due date 11/25/2024. Sonographic age is 13 days ahead of the clinical age. 3. Estimated weight greater than 97th percentile. Abdominal circumference greater than 97th percentile. 4. Abnormally low FL/AC and HC/AC ratios. Cj Melgar M.D. Diagnostic Radiologist [email or web address] COR[place]/leno JR/Dictated by: Cj Melgar MD @ 11/11/2024 6:24:00 AM (Electronically Signed)
== END 2024-11-10 08:45 | disposition home or self-care (01) ==
LOC: US 08:45
PROVIDERS: PCP Nurse Practitioner Family; Visit Provider Obstetrics & Gynecology
DX: O24.419 Gestational diabetes mellitus in pregnancy, unspecified control (principal); O36.63X0 Maternal care for excessive fetal growth, third trimester, not applicable or unspecified; Z3A.36 36 weeks gestation of pregnancy
CPT/HCPCS: 76816; 76819; 82239; 84450; 84460

== ENCOUNTER 2024-11-10 08:53 | Outpatient (CLI) | payer OTHER, SELFPAY | END 2024-11-10 08:54 | disposition home or self-care (01) | LOC: NFLDREF 22:59 | PROVIDERS: PCP Nurse Practitioner Family; Referring Provider Nurse Practitioner Family; Visit Provider Obstetrics & Gynecology | DX: O99.713 Diseases of the skin and subcutaneous tissue complicating pregnancy, third trimester (principal); L29.9 Pruritus, unspecified | CPT/HCPCS: 82239; 84450; 84460 ==

== ENCOUNTER 2024-11-13 09:10 | Outpatient (CLI) | payer OTHER, SELFPAY ==
--- NOTE | 2024-11-13 09:15 | CRLHL7_ITS ---
For Patients: As a result of the Century Cures Act, medical imaging exams and procedure reports are released immediately into your electronic medical record. You may view this report before your referring provider. If you have questions, please contact your health care provider. INDICATION: Type 2 diabetes mellitus TECHNIQUE: Ultrasound OB pelvis transabdominal. Real-time de los santos-scale imaging of the fetus was performed with color Doppler and spectral Doppler analysis of the umbilical artery without stress testing. COMPARISON: 11/10/2024 FINDINGS: Sonographic imaging demonstrates a single living intrauterine gestation. Fetus demonstrates a regular cardiac rate of 150 beats per minute. Fetus has a cephalic orientation. The placenta lies fundal. Amniotic fluid volume appears normal with a MVP of 5.3 cm. breathing movements, motion, and tone were all observed. IMPRESSION: Single viable intrauterine with a biophysical profile 03/20. Dictated by Rubén Hernandez MD @ 11/13/2024 3:27:56 PM (Electronically Signed)
== END 2024-11-13 09:11 | disposition home or self-care (01) ==
LOC: US 09:10
PROVIDERS: PCP Nurse Practitioner Family; Visit Provider Obstetrics & Gynecology
DX: O24.419 Gestational diabetes mellitus in pregnancy, unspecified control (principal)
CPT/HCPCS: 76819

== ENCOUNTER 2024-11-17 09:05 | Outpatient (CLI) | payer OTHER, SELFPAY ==
--- NOTE | 2024-11-17 09:15 | CRLHL7_ITS ---
For Patients: As a result of the Cures Act, medical imaging exams and procedure reports are released immediately into your electronic medical record. You may view this report before your referring provider. If you have questions, please contact your health care provider. OB ULTRASOUND LMP: . RUPERT by LMP: 12/08/2024. GA: 37 w, 0 d. Single. INDICATION: Type 2 diabetes without complications. TECHNIQUE: Real time grayscale imaging of the fetus was performed. Transabdominal. CERVIX: Not visualized. POSITIONING: Vertex. AMNIOTIC FLUID: 3.4 cm. SDP (N: greater than 2 x 1 cm) BIOPHYSICAL PROFILE: 2: Gross body movements 2: tone 2: Respiratory activity 2: Amniotic fluid SDP (N: greater than 2 x 1 cm) 8/8: Total score PLACENTA: Technique: Transabdominal. PLACENTA POSITION: Anterior, fundal. DOPPLER: heart rate: 145 bpm. IMPRESSION: Normal biophysical profile score 8/8. Cj Melgar M.D. Diagnostic Radiologist [email or web address] COR[place]/adi joshi/Dictated by: Cj Melgar MD @ 11/17/2024 9:51:00 AM (Electronically Signed)
== END 2024-11-17 09:06 | disposition home or self-care (01) ==
LOC: US 09:05
PROVIDERS: PCP Nurse Practitioner Family; Visit Provider Obstetrics & Gynecology
DX: O24.419 Gestational diabetes mellitus in pregnancy, unspecified control (principal); Z3A.37 37 weeks gestation of pregnancy
CPT/HCPCS: 76819

== ENCOUNTER 2024-11-17 10:00 | Inpatient (IN) | payer OTHER, SELFPAY ==
[2024-11-17] VITALS (39 sets, daily range): BP systolic 116–143; BP diastolic 57–94; PULSE 66–107; RESP 18; TEMP 36.6–37; O2SAT 92–100
[2024-11-17 11:53] LABS: Basophils Absolute Auto 0.03 K/uL (0.00-0.30); Basophils Percent Auto 0.4 % (0.0-3.0); Eosinophils Absolute Auto 0.11 K/uL (0.00-0.50); Eosinophils Percent Auto 1.3 % (0.0-7.0); Hematocrit 34.2 % (33.0-51.0); Immature Granulocytes Abs Auto 0.06 K/uL (0.00-0.30); Immature Granulocytes Pct Auto 0.7 %; Lymphocytes Percent Auto 22.9 % (20-44); Mean Corpuscular HGB Conc 32 gm/dL (32-36); Mean Corpuscular Hemoglobin 27 pg (26-34); Mean Corpuscular Volume 83 fL (80-100); Monocytes Percent Auto 6.1 % (0.0-11.0); Neutrophils Percent Auto 68.6 % (42.0-72.0); Platelet Count* 243 K/uL (140-440); RDW Coefficient of Variation % 13.2 % (11.5-15.5); Red Blood Count 4.14 m/uL (4.00-5.20); White Blood Count* 8.31 K/uL (4.50-11.00)
[2024-11-17 11:59] LABS: Slide Review Reflex No
[2024-11-17] MEDS: LACTATED RINGERS 1000 ML 1,000 ML 125 ML IV (12:47)
[2024-11-17] MEDS: OXYTOCIN 30 unit/500 ML in NS 30 UNIT/500 ML BAG IVPB (12:48)
--- NOTE | 2024-11-17 13:24 | W.PM.LDBA ---
Subjective History of Present Illness Time Seen by Provider: 11:00 Date Seen: 11/17/24 Narrative: Patient is being admitted to Labor and Delivery for spontaneous labor. She is a 33 year old at 37.0 weeks gestation. Her full history and physical was dictated by Dr. JIMENEZ on 11/13/24. Please see this for details. Patient had BPP that was 8/8 in US this AM. However, was sent to L&D as patient appeared to be breathing through labor contractions. She was check upon arrival and cervical exam was /- 1. She was unchanged after 2 hr recheck but noted to be SROM. Reports that she had a big gush of fluid at 0730 this AM. However, she was sitting down to void so she was unsure, at the time, if it was LOF or urine. Will assume LOF at that time as she expresses amniotic fluid with contractions. Specific Issues/Plans Partner: Unplanned , partner will not be involved (FOB is not her spouse). from her spouse. Children: StacieAide Jaycen, Matthew, Amy Baby: Girl! Spouse: Jaden Current partner: Christiano H&P: By Dr. Osorio on 11/03 repeated in H&P by BARBARA on 11/13/2024 GBS: obtained on 11/03 # Type 2 diabetes, poorly controlled History of gestational diabetes with 3rd Baseline pre E labs: all normal. pr/cr ratio: 0.03 Endocrinology consult 05/30/24: Lantus 8 units at night. As of 10/13, Lantus 12 u BID Increased to Lantus 16u BID on 11/03/24 > 18U BID on 11.06.25 Increased Lantus to 22u BID on 11/13/24. Level 2 ultrasound and MFM consult: Completed 07/16/24 see below Hemoglobin A1c every trimester 1st: 6.5 2nd: 6.5 3rd: 6.5 10/03/24: 6.7% 10/27: 7 Echo 08/20/24: Normal. EFW US Q4 weeks starting @ 28 weeks, twice weekly BPP starting at 32 weeks. Suspected macrosomia at 32 weeks (see below) Endocrinology 10/07: Fastings elevated. No data on post-prandial readings. Thyroid, urinary albumin and BMP checked. Not adherent to diabetic diet, not checking sugars regularly. Favor early term IOL. # Depression and anxiety History of suicide attempt in February of 2023, hospitalized. Lost insurance and did not have follow-up with psychiatry or therapy PCP prescribed sertraline, at 1st OB (PHQ 9: 19/ SUNG 7: 16)had not picked up prescription yet. Counseling referral placed 05/12: scores 21 and 19. Difficulty functioning. No work for 2 weeks. She will start medication. Psychiatry referral placed PHQ-9 and sung 7 next visit: 24 and 19, screen positive for bipolar dx. 05/29/24: no suicidal ideation or plan, contacted [facility] for possible intensive outpatient therapy. 06/17/24: Has continued Sertraline, feels stable not significantly improved, has scheduled psych ary. next week 07/02/24: Continues with Sertraline, states feeling a bit better, missed psych appointment encouraged to reschedule. 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 Pt hoping to go unmedicated. # Asthma, mild intermittent. Albuterol with exercise #Left ovarian cyst, has been following with Dr. Mcelroy since December of 2022. Suspect teratoma-5.0 cm # History of congenital hypothyroidism, daughter # Positive chlamydia. Azithromycin 1 g Test of cure: Ordered on 05/29/24, missed as patient was sent to ED NATHANIEL collected 06/17/24: Negative x2 # Asymptomatic bacteriuria, E coli Keflex #SOB, EKG with changes concerning for ischemia Sent to ED: CTA negative, labs negative. Cardiology referral placed 05/29/24 #Pelvic pain 06/17/24: Wet prep: BV, Flagyl ordered Pelvic US FU ordered: Completed 07/02/24: cervix closed and long, left ovarian cyst stable in size. # H/O endometriosis and 5cm L teratoma Desires Bilateral salpingectomy Favors waiting until 6weeks to have laparoscopic ovarian cystectomy, Bilateral salpingectomy and treatment of endometriosis. Federal consent signed for bilateral salpingectomy on 09/15/24 # Anemia with Hb 10.7 on 10/27. Begin ferrous sulfate 325 mg QOD # Pruritus AST 41 on 11/03/24 > repeat normalized ALT and bile acid wnl x2 Imagin07/16/24: Level 2, [facility] consult: Impression: Reeedr intrauterine at 19w 2d gestational age.None of the anomalies commonly detected by ultrasound were evident in the detailed anatomic survey described above.Growth parameters and estimated weight were consistent with appropriate for gestational age pattern of growth.The amniotic fluid volume appeared normal.The transvaginal cervical length is within normal limits. Recommendation: Given Lan's history of spontaneous in her last in 2016, recommend serial TV cervical length US at 21 and 23 weeks (in 2 and 4 weeks), increasing to weekly if CL were to measure < 30 mm. If CL were noted to be < 25 mm, then consider cervical cerclage vs vaginal progesterone for recurrent risk reduction. These US can be scheduled at either [facility] or [facility]. Given history of type 2 DM, a echocardiogram is recommended with Pediatric Cardiology in 2-3 weeks. Finally, serial growth US are recommended every 4 weeks starting at 26-28 weeks in addition to twice weekly BPP at 32 weeks, which I anticipate will be scheduled through [facility]. 07/30: EFW 1792 g, 22.5 percentile. Normal anatomy visualized. MVP 7.3. Cervix appears long/closed. 08/15/24. Breech. Cervical length: 4.7cm 09/15/2024: Breech. Cervical length 3.1cm. SDP: 4.6cm. EFW: 1351 g, 3 lb 0 oz, 82%. BPD 39%, HC 49%, AC 94%, FL 34%. 10/13: cephalic, SDP 4.8, BPP 8/8, EFW 2572, >97%. BPD 67%, HC 64%, AC>97%, FL 44%. Vaccinations: COVID: Declined Flu: 06/18/2024 Tdap: 10/13/24 RSV: n/a 32 week mental health: 10/13/24 PHQ = 16, SUNG = 18 GBS:11/03/24 Last pap: 05/01/24 ASCUS, +HPV (other). Colposcopy 05/20/24 normal. Needs repeat pap/colposcopy . OB - Problem Based A/P Additional Plan (1) Unwanted fertility: Status: Acute (2) Pruritus of : Status: Acute (3) Anemia complicating : Status: Acute (4) Anxiety: Status: Acute (5) GERD (gastroesophageal reflux disease): Status: Acute (6) Nerve sheath tumor: Status: Acute (7) Anxiety and depression: Status: Acute (8) Elevated liver enzymes: Status: Acute (9) Type 2 diabetes mellitus: Status: Acute Plan - Presumed SROM at 0730 - Will augment with Pitocin per protocol - Diabetes management per protocol OB Exam Physical Exam Vital signs: Temp Pulse Resp BP 98.1 F 79 18 116/71 11/17/24 12:21 11/17/24 12:19 11/17/24 12:21 11/17/24 12:19 Narrative: Physical exam: General: No acute distress Psych: Alert and oriented x3, full affect HEENT: Normocephalic, atraumatic Lungs: Unlabored breathing Neuro: No focal deficit. Mentating appropriately Pelvic exam: SVE 4/70/-1, moderately soft, mid position. hair palpated. Clear fluid with small amount of blood tinge noted.
[2024-11-17] MEDS: INSULIN GLARGINE,HUM.REC.ANLOG 100 UNIT/ML INSULN.PEN 9 UNIT SUBCUT (13:52)
[2024-11-17] MEDS: ROPIVACAINE 0.2 % PF 10 ML INJ 20 MG EPIDURAL (17:15)
[2024-11-17] MEDS: LIDOCAINE 2% (PF) 5 ML VIAL EPIDURAL (17:15)
[2024-11-17] MEDS: LACTATED RINGERS 1000 ML 1,000 ML 115 ML IV (17:17)
[2024-11-17] MEDS: ROPIVACAINE 0.2% 100 ml 100 ML 12 MG EPIDURAL (17:20)
--- NOTE | 2024-11-17 17:24 | P.ANBPRC_ITS ---
[facility] Medical History Atypical chest pain ?R07.89 - Other chest pain (ICD-10) Abnormal uterine bleeding ?N93.9 - Abnormal uterine and vaginal bleeding, unspecified (ICD-10) Radiculopathy ?M54.10 - Radiculopathy, site unspecified (ICD-10) Low back pain ?M54.50 - Low back pain, unspecified (ICD-10) History of abnormal cervical Pap smear ?Z87.42 - Personal history of other diseases of the female genital tract (ICD-10) History of ovarian cyst (2017) ?Z87.42 - Personal history of other diseases of the female genital tract (ICD-10) Surgical History History of cholecystectomy ?Z90.49 - Acquired absence of other specified parts of digestive tract (ICD- 10) Family History Mother Prediabetes Maternal Grandfather SCC (squamous cell carcinoma) Social History Narrative: Occupation: Works for [employer] in [place]. Marital status: . Yazidism/cultural needs: no. Chemical or radiation exposure: no. Pre- tobacco use: no. Pre- alcohol use: no. Current tobacco use: no. Current alcohol use: no. Recreational drug use: no. Dietary restrictions: no. Blood transfusion acceptable in an emergency: yes. PSYCHOSOCIAL HISTORY: History of depression or currently depressed: yes. Current or past physical, emotional, or sexual mistreatment: no. Problems that will make it hard to make it to appointments: no. What is your current living situation?: I presently have a place to live Problems where you live: no known problems In the past 12 months, utilities in danger of being shut off: no In past 12 months, lack of transportation kept you from medical appts, meetings, work, or getting things needed for daily living: no In the past 12 mos, have been you worried that your food would run out before you had money to buy more?: never true In the past 12 mos, the food you bought just didn't last and you didn't have money to buy more?: never true Smoking Status: Never smoker How often do you have a drink containing alcohol: never How often do you have six or more drinks on one occasion: Never AUDIT-C Alcohol total score: 0 Non-prescribed substance use: denies use How often does anyone, including family, friends and others, physically hurt you : never How often does anyone, including family, friends and others, insult or talk down to you: never How often does anyone, including family, friends and others, threaten you with harm: never How often does anyone, including family, friends and others, scream or curse at you: never Meds Home Medications and Allergies Allergies Allergy/AdvReac Type Severity Reaction Status Date / Time No Known Drug Allergies Allergy Verified 11/17/24 08:07 Results Labs Labs: Laboratory Results - last 24 hr 11/17/24 11:20 WBC 8.31 RBC 4.14 Hgb 11.0 L Hct 34.2 MCV 83 MCH 27 MCHC 32 RDW Coeff of Dandre 13.2 Plt Count 243 Neut % (Auto) 68.6 Lymph % (Auto) 22.9 [place] % (Auto) 6.1 Eos % (Auto) 1.3 Baso % (Auto) 0.4 Neut # (Auto) 5.70 Lymph # (Auto) 1.90 [place] # (Auto) 0.50 Eos # (Auto) 0.11 Baso # (Auto) 0.03 Abs Immat Gran (auto) 0.06 Imm/Tot Granulo (auto) 0.7 Blood Type O Positive Antibody Screen NEGATIVE Vital Signs Vital Signs: Last Vital Signs Temp 98.2 F 11/17/24 16:06 Pulse 90 11/17/24 17:22 Resp 18 11/17/24 16:06 BP 135/70 11/17/24 17:22 Pulse Ox 100 11/17/24 17:21 Weight: 92.986 kg Height: 162.56 cm Anesthesia Procedures Epidural Insertion Patient Location: OB Start Time: 16:50 Stop Time: 17:24 Start Date: 11/17/24 Stop Date: 11/17/24 Reason for Block: procedure for pain Patient Position: sitting Performed By: Armando Marroquin Preanesthetic Checklist: IV checked, risks and benefits discussed, surgical consent, monitors and equipment checked, pre-op evaluation, timeout performed and anesthesia consent Prep: chlorhexidine gluconate Monitoring: blood pressure monitoring, continuous pulse oximetry and heart rate Approach: midline Vertebral Space: lumbar (1-5) Needle Type: Tuohy needle Injection Technique: continuous catheter Needle gauge: 17 Needle Length (cm): 10 cm Needle Insertion Depth (cm): 7 Catheter Gauge: 19 Catheter Type: multi-orifice Catheter at skin depth (cm): 13 Test Dose Result: negative and lidocaine 1.5% with epinephrine 1 to 200,000
--- NOTE | 2024-11-17 19:38 | W.PM.VAGDEL1 ---
Procedure Delivery date: 11/17/24 Procedure Done: Global Events: GDMA2 and Labor Augmentation Intrapartal Events: Labor Augmentation Delivery augmentation: pitocin Delivery monitor: external FHT Route of delivery: Laceration description: None Estimated blood loss (mL): 100 Anesthesia type: Epidural Disposition: floor Complications: None Narrative: Lan is a 33 year-old admitted on 11/16/24 at 37 and 0/7 weeks gestation for spontaneous labor and SROM at 0730. GBS negative Labor Analgesia: Epidural Pitocin: Yes for augmentation of labor and active management of the 3rd stage. SROM: 11/17/24 at 0730, with clear fluid Complete: 11/17/24 at 1904 Pushin11/17/24 at 1910 heart tones during second stage were Cat I with early decelerations. At 1910 a viable female delivered in vertex OA presentation over intact via spontaneous vaginal delivery. The 's body was delivered in the usual manner without difficulty. The was placed on maternal abdomen. The cord was clamped and cut after a 30-60 second delay. The nose and mouth were bulb suctioned. weight: pending. 8 at 1 minute and 8 at 5 minutes. Shoulder dystocia: None. Nuchal cord: 1x, loose and delivered through. Reduced after delivery of body. Placenta delivered spontaneously and complete at 1914 with a 3-vessel cord. Placenta examined and noted to be complete. Placenta was sent to pathology for uncontrolled pregestational diabetes. The cervix and vagina were inspected for lacerations. Laceration(s): None Complications: None Cord gases: not indicated Sponge and needles counts are correct. Mother and infant were stable at the time of this note. Infant Gender: Female presentation: vertex Placental Delivery Description: Spontaneous Cord Description: 3 Vessels
[2024-11-17] MEDS: ACETAMINOPHEN 500 MG TABLET 1000 MG PO (19:45)
[2024-11-17] MEDS: IBUPROFEN 600 MG TABLET PO (21:48)
[2024-11-17] MEDS: SERTRALINE 50 MG TABLET PO (21:48)
[2024-11-18 02:00] VITALS: BP 120/75; PULSE 64; RESP 16; TEMP 36.7; O2SAT 98
[2024-11-18 05:30] VITALS: BP 131/71; PULSE 58; RESP 16; TEMP 36.9; O2SAT 98
[2024-11-18] MEDS: ACETAMINOPHEN 500 MG TABLET 1000 MG PO (05:45)
[2024-11-18 07:50] VITALS: BP 130/61; PULSE 57; RESP 16; O2SAT 98
--- NOTE | 2024-11-18 08:15 | PM.OBPNVD1 ---
OB - PN: Obj Exam Physical Exam: Vital signs: Temp Pulse Resp BP Pulse Ox O2 Del Method 98.4 F 57 L 16 130/61 98 Room Air 11/18/24 05:30 11/18/24 07:50 11/18/24 07:50 11/18/24 07:50 11/18/24 07:50 11/18/24 07:50 OB - PN: Obj Data Labs Labs: Laboratory Results - last 24 hr 11/17/24 11/18/24 11:20 06:29 WBC 8.31 RBC 4.14 Hgb 11.0 L 10.0 L Hct 34.2 MCV 83 MCH 27 MCHC 32 RDW Coeff of Dandre 13.2 Plt Count 243 Neut % (Auto) 68.6 Lymph % (Auto) 22.9 [place] % (Auto) 6.1 Eos % (Auto) 1.3 Baso % (Auto) 0.4 Neut # (Auto) 5.70 Lymph # (Auto) 1.90 [place] # (Auto) 0.50 Eos # (Auto) 0.11 Baso # (Auto) 0.03 Abs Immat Gran (auto) 0.06 Imm/Tot Granulo (auto) 0.7 Blood Type O Positive Antibody Screen NEGATIVE OB - PN: A/P Delivery Assessment and Plan (1) Unwanted fertility: Status: Acute (2) Pruritus of : Status: Acute (3) Anemia complicating : Status: Acute (4) Anxiety: Status: Acute (5) GERD (gastroesophageal reflux disease): Status: Acute (6) Nerve sheath tumor: Status: Acute (7) Anxiety and depression: Status: Acute (8) Elevated liver enzymes: Status: Acute (9) Type 2 diabetes mellitus: Status: Acute
[2024-11-18 12:24] LABS: Rapid Plasma Reagin (RPR) Non Reactive (Non Reactive)
[2024-11-18 12:59] VITALS: BP 121/83; PULSE 67; RESP 18; O2SAT 98
--- NOTE | 2024-11-18 13:03 | PM.ANPOST ---
Post Anesthesia Note Post Anesthesia Note Patient seen: Inpatient Respiratory Status: adequate Cardiovascular Status: adequate Mental Status: baseline Pain: adequate Temp: baseline Anesthetic awareness: N/A Complications: none Follow care: none
[2024-11-18 16:40] VITALS: BP 120/66; PULSE 66; RESP 18; TEMP 36.7; O2SAT 98
[2024-11-18] MEDS: IBUPROFEN 600 MG TABLET PO (16:53)
--- NOTE | 2024-11-18 18:12 | P.DS_ITS ---
DS: Providers Provider Date Seen: 11/18/24 Date of admission: 11/17/24 10:00 Primary care physician: Peg Jeff APRN, EAR SPECIALIST Admitting Clinician: Corinne Osorio MD Attending Physician on discharge: Corinne Osorio MD Date of Discharge: 11/18/24 DS: Diagnosis Discharge Diagnosis (1) Lactating mother: Status: Acute (2) care following vaginal delivery: Status: Acute (3) Unwanted fertility: Status: Acute (4) Anxiety and depression: Status: Acute (5) Type 2 diabetes mellitus: Status: Acute Exam Narrative: Exam Narrative: GENERAL APPEARANCE:? normal affect, alert, no distress? MOOD:? appropriate? CHEST:? clear to auscultation and percussion? HEART:? regular rate and rhythm? ABDOMEN:? soft, non-tender the uterine fundus is U/1 and is appropriate for the stage of recovery.? PERINEUM:? mild edema of the perineum, there is a intact perineum that is healing well.? EXTREMITIES:? normal and no edema? Const: Vital Signs, click to edit/add: Vital Signs - 24 hr 11/17/24 18:14 11/17/24 18:29 11/17/24 18:45 Temperature Pulse Rate 93 86 71 Pulse Rate [Pulse Oximeter] Respiratory Rate Blood Pressure 132/71 134/77 125/69 Blood Pressure [Ri ght Arm] [facility] 19:00 11/17/24 19:00 11/17/24 19:15 Temperature 98.6 F Pulse Rate 89 96 Pulse Rate [Pulse Oximeter] Respiratory Rate 18 Blood Pressure 132/61 128/58 L Blood Pressure [Ri ght Arm] Pulse Oximetry Oxygen Delivery Nv thod 11/17/24 19:17 11/17/24 19:32 11/17/24 19:47 Temperature Pulse Rate 100 88 98 Pulse Rate [Pulse Oximeter] Respiratory Rate Blood Pressure 138/67 126/62 143/73 H Blood Pressure [Ri ght Arm] Pulse Oximetry Oxygen Delivery Nv thod 11/17/24 20:03 11/17/24 20:17 11/17/24 20:32 Temperature Pulse Rate 85 83 86 Pulse Rate [Pulse Oximeter] Respiratory Rate Blood Pressure 131/62 130/60 130/62 Blood Pressure [Ri ght Arm] Pulse Oximetry [facility]/17/24 20:47 11/17/24 21:02 11/17/24 21:17 Temperature Pulse Rate 72 85 78 Pulse Rate [Pulse Oximeter] Respiratory Rate Blood Pressure 124/58 L 127/71 120/63 Blood Pressure [Ri ght Arm] Pulse Oximetry Oxygen Delivery Me thod 11/18/24 02:00 11/18/24 05:30 11/18/24 07:50 Temperature 98.0 F 98.4 F Pulse Rate Pulse Rate [Pulse Oximeter] 64 58 L 57 L Respiratory Rate 16 16 16 Blood Pressure Blood Pressure [Ri ght Arm] 120/75 131/71 130/61 Pulse Oximetry 98 98 98 Oxygen Delivery Me thod Room Air Room Air Room Air 11/18/24 12:59 11/18/24 16:40 Temperature 98.0 F Pulse Rate Pulse Rate [Pulse Oximeter] 67 66 Respiratory Rate 18 18 Blood Pressure Blood Pressure [Ri ght Arm] 121/83 120/66 Pulse Oximetry 98 98 Oxygen Delivery Me thod Room Air OB - DS: Summary Hospital Course Hospital Course: The patient is a 33 year old G 6 P 6 at 37.0 weeks gestation that was admitted to the Center on 11/17/24 for SROM. She had an uncomplicated vaginal d elivery. She delivered a viable female . She is bottle feeding but is considering pumping as well. the patient has done well. Her pain is well controlled with current medications.? She has no new complaints.? Urinary output is adequate and she is voiding without difficulty.? Has a good appetite, is tolerating a general diet, is passing flatus, and has had a bowel movement.? Has scant amount of rubra lochia.? She is ambulating well. We did discuss PP preeclampsia and the warning signs. She did have a couple of elevated blood pressures but they have been stable and she doesn't have a diagnosis related to her blood pressures. She is planning to meet with an OB provider for her 6wk PP visit for a consultation for permanent sterilization. Peripartum Data delivery method: Vaginal Laceration description: None Episiotomy description: None Gender: Female Infant Discharge Plan: Home Status at Discharge Functional status at discharge: independent ambulation Overall status at discharge: patient is progressing back to baseline Time Spent with Patient Time attestation: Total time spent providing and/or coordinating discharge services: Discharge Plan Discharge Disposition: Home, Self-Care Date of Admission: 11/17/24 10:00 Attending Provider on Discharge: Jenifer Landry Primary Care Provider: Peg Jeff Condition: Stable Anticipated Discharge Date/Time: 11/18/24 21:00 Discharge Medications: New docusate sodium 100 mg Capsule 100 mg PO DAILY Qty: 100 0RF Rx Instructions: Take 1-2 tablets daily as needed for constipation. ibuprofen 600 mg Tablet 600 mg PO Q6H PRNQty: 60 0RF Continued metoclopramide HCl [Reglan] 5 mg tablet 5 mg PO ONCE PRN (Reason: nausea and vomiting) Qty: 30 0RF hydroxyzine pamoate 25 mg capsule 50 mg PO QHS PRN (Reason: anxiety) Qty: 60 0RF albuterol sulfate [Ventolin HFA] 90 mcg/actuation HFA aerosol inhaler 2 inh inhalation Q4-6H PRN (Reason: shortness of breath or wheezing) Qty: 8.5 3RF sertraline [Zoloft] 50 mg tablet 50 mg PO QDAY Qty: 90 1RF Rx Instructions: 25 mg daily x 3 day, then 50mg daily [id number] 28 mg iron- 1 mg-400 mg capsule 1 cap PO QDAY Qty: 30 6RF (DME) Test Strips Misc See Rx Instructions .MEDSUPPLY Qty: 100 3RF Rx Instructions: Test blood sugar 4 times daily. (DME) lancets Misc See Rx Instructions .MEDSUPPLY Qty: 100 3RF Rx Instructions: Test blood sugar 4 times daily. (DME) Blood Glucose Meter Misc See Rx Instructions .MEDSUPPLY Qty: 1 0RF Rx Instructions: As directed omeprazole 20 mg capsule,delayed release(DR/EC) 20 mg PO QDAY 70 Days Qty: 70 0RF ferrous sulfate 325 mg (65 mg iron) tablet 325 mg PO Q OTHER DAY Qty: 60 0RF Discontinued insulin glargine [Lantus U-100 Insulin] 100 unit/mL solution 22 unit subcut BID Qty: 10 0RF Discharge Orders: Discharge Order (Routine); Ordered 11/18/24 Ordered By: Jenifer Landry Patient Education: OB Vaginal/Bottle Feeding Additional Instructions: Discharge instructions were reviewed with the patient including signs and symptoms of infection and home going medications.? Lifting Restrictions: 20 pounds for 6? weeks? ?? Do not drive while taking narcotic pain meds.? Off Work or School for 6 weeks.? ?? Symptoms to report to doctor:? -Bleeding that saturates more than one pad per hour? -Passing clots larger than the size of a golf ball? -Pain not relieved by prescribed medication? -Fever above 100.4 degrees Fahrenheit? -A foul vaginal odor? -Difficulty in emotions, mood and functions? -Thoughts of hurting yourself and/or ? -Painful, reddened area in your breast? -Any drainage, redness or tenderness in your IV/epidural site? -Severe headache that doesn't improve after taking medications? -Changes in vision, including temporary loss of vision, blurred vision, and/or light sensitivity? -Upper abdominal pain (usually under ribs on the right side)? -Decrease in urination or painful, frequent urinating? -Chest pain? -Shortness of breath? -Tenderness or pain with redness and/swelling in the calf(s) of your leg? ?? Follow Up in clinic in 2 and 6 weeks.? Consult with your primary care provider for monitoring, care, and management for your Diabetes. ?? consultation services are available to all mothers and babies for the first year after delivery.? To make an appointment, please call [phone].? Activity Level: Activity as Tolerated Follow Up Appointments: [facility] [Provider Group] Peg Jeff APRN, EAR SPECIALIST [Primary Care Provider] - Forms: [employer] Info Instructions
== END 2024-11-18 21:55 | disposition home or self-care (01) | DRG 560 ==
LOC: OB OUT 16:48 → OB 16:48
PROVIDERS: Admitting Provider Obstetrics & Gynecology; PCP Nurse Practitioner Family; Visit Provider Obstetrics & Gynecology
DX: O24.12 Pre-existing type 2 diabetes mellitus, in childbirth (principal); O99.719 Diseases of the skin and subcutaneous tissue complicating pregnancy, unspecified trimester; L29.9 Pruritus, unspecified; Z79.4 Long term (current) use of insulin; O99.344 Other mental disorders complicating childbirth; F41.9 Anxiety disorder, unspecified; F32.A Depression, unspecified; K21.9 Gastro-esophageal reflux disease without esophagitis; D49.2 Neoplasm of unspecified behavior of bone, soft tissue, and skin; R74.8 Abnormal levels of other serum enzymes; O99.02 Anemia complicating childbirth; D64.9 Anemia, unspecified; Z3A.37 37 weeks gestation of pregnancy; Z37.0 Single live birth; Z83.49 Family history of other endocrine, nutritional and metabolic diseases; Z30.09 Encounter for other general counseling and advice on contraception; J45.909 Unspecified asthma, uncomplicated; Z87.51 Personal history of pre-term labor; Z87.410 Personal history of cervical dysplasia; O34.83 Maternal care for other abnormalities of pelvic organs, third trimester; N83.292 Other ovarian cyst, left side; Z87.42 Personal history of other diseases of the female genital tract
CPT/HCPCS: 01967; 36415; 82962; 85018; 85025; 86592; 86850; 86900; 86901; 88307; 94761; A9270; J1815; J2371; J2795; J7120

== ENCOUNTER 2024-12-30 16:14 | Outpatient (CLI) | payer OTHER, SELFPAY ==
[2025-01-01 21:51] LABS: HPV Source Cervix; HPV, High Risk by TMA Detected
[2025-01-02 09:48] LABS: HPV Genotype 16 by TMA Not Detected; HPV Genotype 18/45 by TMA Not Detected; HPVG Source Cervix
== END 2024-12-30 16:15 | disposition home or self-care (01) ==
PROVIDERS: PCP Nurse Practitioner Family; Visit Provider Physician Assistant
DX: Z39.2 Encounter for routine postpartum follow-up (principal)
CPT/HCPCS: 87624; 87625; 88141; 88142

== ENCOUNTER 2025-01-22 10:50 | Outpatient (CLI) | payer OTHER, SELFPAY ==
[2025-01-22 14:55] LABS: Bacterial Vaginosis* Negative (Negative); Candida glab/krus NOT DETECTED (No Detected); Candida species NOT DETECTED (No Detected); Trichomonas vaginalis NOT DETECTED (No Detected)
[2025-01-22 15:27] LABS: Chlamydia DNA Amplified* NOT DETECTED (No Detected); GC DNA Amplified* NOT DETECTED (No Detected)
== END 2025-01-22 10:51 | disposition home or self-care (01) ==
PROVIDERS: PCP Nurse Practitioner Family; Visit Provider Obstetrics & Gynecology
DX: N72 Inflammatory disease of cervix uteri (principal); Z11.3 Encounter for screening for infections with a predominantly sexual mode of transmission
CPT/HCPCS: 81513; 87481; 87491; 87591; 87661

== ENCOUNTER 2025-01-26 13:11 | Outpatient (CLI) | payer OTHER, SELFPAY | END 2025-01-26 13:12 | disposition home or self-care (01) | PROVIDERS: PCP Nurse Practitioner Family; Visit Provider Nurse Practitioner Family | DX: R74.8 Abnormal levels of other serum enzymes (principal); Z01.818 Encounter for other preprocedural examination | CPT/HCPCS: 80053; 85025 ==

== ENCOUNTER 2025-02-03 05:53 | Day surgery (SDC) | payer OTHER, SELFPAY ==
[2025-02-03] VITALS (19 sets, daily range): BP systolic 103–125; BP diastolic 65–78; PULSE 72–101; RESP 16; TEMP 36.1–36.5; O2SAT 88–99
[2025-02-03 06:46] LABS: Ur HCG Qualitative* Negative (Negative)
[2025-02-03] MEDS: LACTATED RINGERS 1000 ML 1,000 ML 100 ML IV (07:00)
[2025-02-03] MEDS: SODIUM CHLORIDE 0.9 % (FLUSH) 10 ML SYRINGE IVF (07:00)
[2025-02-03] MEDS: INSULIN REGULAR, HUMAN 100 UNIT/ML VIAL SUBCUT ×2 (07:20→11:45)
[2025-02-03] MEDS: BUPIVACAINE 0.25% 30 ML INJECTION (08:41)
--- NOTE | 2025-02-03 08:45 | SUR.OPER ---
PATIENT QUESTIONS ANSWERED SATISFACTORILY PREOPERATIVELY. PATIENT BROUGHT TO OR #2 PER CART. Patient positioned supine on OR #2 bed for the intubation. Pt. then moved into the lithotomy position for the procedure. Perioperative team/Yulisa padded and tucked the arms at pt. sides in a neutral position. ? Final approval of positioning by surgeon.
--- NOTE | 2025-02-03 10:18 | P.ANES_ITS ---
Anesthesia Charges Start Date/Time Anesthesia Start Date: 02/03/25 Anesthesia Start Time: 08:03 Stop Date/Time Anesthesia Stop Date: 02/03/25 Anesthesia Stop Time: 10:45 Coding CPT Codes CPT Codes: ANESTH SURG LOWER ABDOMEN - 22466 ([id number]) P2 - PATIENT W/MILD SYST DISEASE, QK - LICENSED WEIGHER 2-4 CNCRNT ANES PROC, QX - RACECOURSE BARRIER ATTENDANT SVC W/ MD MED DIRECTION
--- NOTE | 2025-02-03 10:18 | W.ANESCHARGE ---
Anesthesia Charges Start Date/Time Anesthesia Start Date: 02/03/25 Anesthesia Start Time: 08:03 Stop Date/Time Anesthesia Stop Date: 02/03/25 Anesthesia Stop Time: 10:45 Coding CPT Codes CPT Codes: ANESTH SURG LOWER ABDOMEN - 43987 ([id number]) P2 - PATIENT W/MILD SYST DISEASE, QK - BOTANY LABORATORY ASSISTANT 2-4 CNCRNT ANES PROC, QX - LEAD SYSTEMS ANALYST SVC W/ MD MED DIRECTION
--- NOTE | 2025-02-03 10:47 | P.ANES_ITS ---
Anesthesia Charges Start Date/Time Anesthesia Start Date: 02/03/25 Anesthesia Start Time: 08:03 Stop Date/Time Anesthesia Stop Date: 02/03/25 Anesthesia Stop Time: 10:45 Coding CPT Codes CPT Codes: ANESTH SURG LOWER ABDOMEN - 61165 ([id number]) P2 - PATIENT W/MILD SYST DISEASE, QK - ACCOUNTS RECEIVABLE SPECIALIST 2-4 CNCRNT ANES PROC, QX - MARKETING TEACHER SVC W/ MD MED DIRECTION
--- NOTE | 2025-02-03 10:47 | W.ANESCHARGE ---
Anesthesia Charges Start Date/Time Anesthesia Start Date: 02/03/25 Anesthesia Start Time: 08:03 Stop Date/Time Anesthesia Stop Date: 02/03/25 Anesthesia Stop Time: 10:45 Coding CPT Codes CPT Codes: ANESTH SURG LOWER ABDOMEN - 62717 ([id number]) P2 - PATIENT W/MILD SYST DISEASE, QK - SPECTROGRAPHIC ANALYST 2-4 CNCRNT ANES PROC, QX - BREW HOUSE SUPERVISOR SVC W/ MD MED DIRECTION
[2025-02-03] MEDS: LACTATED RINGERS 500 ML 500 ML 100 ML IV (10:52)
--- NOTE | 2025-02-03 11:01 | W.PM.H&PU ---
History & Physical Update History & Physical Update H&P Reviewed and patient assessed: No changes noted
--- NOTE | 2025-02-03 11:02 | P.GYNPRC_ITS ---
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 History of abnormal pap with recent HPV+ testing Post-op diagnosis: Undesired fertility 5 cm left ovarian cyst Simple 2 cm right ovarian cyst History of abnormal pap with recent HPV + testing Procedure: Laparoscopy with bilateral salpingectomy Left oophorectomy Biopsy of right ovarian cyst Colposcopy with cervical biopsies Complications: Bleeding from the left ovary after cystectomy, requiring left oophorectomy Heavy bleeding from the cervix after cervical biopsies, requiring 2 [id number] sutures and cauterization Surgeon: Marlin Castorena Fisher Crab: Courtney Butler Estimated blood loss (mL): 75 IV fluids (mL): 1,000 Urine Output (mL): 300 Pathology: specimen obtained, sent to pathology (1. Left fallopian tube, 2. Right fallopian tube, 3. Left ovary with cyst, 4. Right ovarian cyst wall, 5. Cervical biopsies at 7 and 3 o'clock ) Condition: stable Disposition: PACU Findings: 1. Upon pelvic exam under anesthesia, the cervix and vagina were normal in appearance. Uterus was mobile and anteverted, of normal size and texture. 2. Upon laparoscopy, survey of the upper abdomen revealed a normal appearance to the inferior edge of the liver, gallbladder and stomach. Bowels were grossly normal appearance, as was the appendix. Survey of the pelvis revealed normal appearance to the uterus. Bilateral tubes were normal in appearance. The cul-de-sac and bladder reflection were normal in appearance. The left ovary exhibited of 5 cm cyst on the distal most portion of the ovary, adjacent to the infundibulopelvic ligament. The right ovary exhibited a 2 cm cyst that, when ruptured, spilled straw-colored fluid and appeared simple; this was consistent in appearance with a functional ovarian cyst. 3. Upon colposcopy, the entire transformation zone was visualized after application of acetic acid. There was no abnormal vasculature her or mosaicism. There was thin aceto-white epithelium along the squamocolumnar junction at 3 o'clock, and 2 sites of thin-appearing aceto-white epithelium about a 0.5 cm away from the squamocolumnar junction at 7 o'clock. Procedure Description: Patient was taken to the operating room with IV running. She was positioned in dorsal lithotomy position with her legs fully supported in Yellofin stirrups. General anesthesia was administered. She was prepped and draped in the usual sterile fashion. Bimanual exam was performed for the above-noted findings. Speculum was inserted. A single-toothed uterine manipulator was inserted through the cervix into the lower uterine segment, and affixed to the anterior cervical lip. Speculum was removed. Gross catheter was placed. Patient's legs were placed in neutral position. Attention was turned to patient's abdomen. The infraumbilical area was infiltrated with small amount of Marcaine. An infraumbilical incision was made with a scalpel and carried through to the underlying layer of fascia with a hemostat. The 5 mm Fios Kii trocar was assembled with laparoscope within, and insufflator attached. While tenting up the abdomen manually, the trocar was passed through the anterior abdominal wall into the peritoneal cavity. Trocar was removed. Pneumoperitoneum was achieved. Survey of abdomen and pelvis revealed the above-noted findings. Two additional port sites were created. The first was in the patient's left lower quadrant, just superior medial to the left ASIS. The second was a hand's breath superior to and slightly medial to the first. Each was infiltrated with small amount of Marcaine prior to incision. A 5 mm incision was made at each site, making sure the large vessels were out of harm's way. A 5 mm Fios Kii port was inserted at each site, under direct visualization and without complication. The balloon on each of the four ports was inflated, holding each in place. Later in the procedure, the 5 mm port in the patient's left lower quadrant was replaced with an 11 mm port to enable use of the Endo-Catch bag. The left fallopian tube was grasped in its midportion. The filmy attachments between the left ovarian cyst and the tube were dissected away with the Thunderbeat cautery device. Dissection enter the mesosalpinx. This was carried laterally to medially, and the tube was then amputated at the left uterine cornua. The left ovarian cyst was further dissected away from the left ovary, but the attachment of the cyst was adjacent to the hilum. This cyst was removed intact from the left ovary. However, there was persistent bleeding at the left ovarian hilum, amounting to around 25 mL over observe time of around 10 minutes. Given that it appeared that the vasculature had been somewhat compromised, and was still bleeding, I opted to remove the left ovary. The ovary was held away from the pelvic sidewall and the blood supply was divided and transected with the Thunderbeat device. Dissection was carried laterally to medially through the broad ligament, and the utero-ovarian ligament was then cauterized and transected. Hemostasis was noted at all pedicle sites. The left tube was from the left ovarian cyst in the process of the dissection, and was removed from the patient's abdomen and sent to pathology. The left ovary and the cyst were placed in the pelvis for later retrieval. The right fallopian tube was grasped at its fimbriated edge. The blood supply to the distal tube was cauterized and transected with the Thunderbeat device. Dissection was carried laterally to medially through the mesosalpinx and the right tube was cauterized and transected at the right cornua. This was removed from the patient's abdomen and sent to pathology. The right ovarian cyst was examined and ruptured in the process, spilling clear fluid. It appeared simple. The ovary exhibited some bleeding along the edges of the cyst wall, which was treated with the Thunderbeat device. This was observed over time and hemostasis was ultimately noted. Jeannette hemostatic agent was applied to the cyst bed. The Endo-Catch bag was placed through the left lower quadrant port and the left ovary and left ovarian cyst were placed in this bag. Bag was cinched down. The left lower quadrant port was removed and the bag was delivered through the abdomen. The cyst was ruptured in the bag, spilling chocolate colored fluid. This allowed removal of the specimens from the abdomen. The left lower quadrant port was then replaced. The specimens were examined outside of the bag. The left ovarian cyst did have small areas of nodularity that were palpable. There were none greater than 1-2 mm. Suction forms analysis manager was used to clear the pelvis of clots. Hemostasis was noted. The left lower quadrant port was again removed. The Juan Pablo-Humphrey device was used to close the fascia with a single stitch of 0 Vicryl. All instruments were removed from the ports. The balloon tips on the other 2 ports were deflated. Pneumoperitoneum was released and these ports were removed. The skin of each port site was closed with a subcuticular stitch of 4-0 Monocryl. Surgical glue was applied above this. Next, patient's legs were placed in lithotomy position. The Gross catheter was removed. The uterine manipulator was removed, and an insulated speculum was placed in the patient's vagina. The cervix was bathed with 5% acetic acid. Colposcope was used to visualize cervix. Findings were as noted above. Two cervical biopsy was were performed, one at 7 and one at 3 o'clock. Immediately after the biopsy at 3 o'clock, heavy bleeding was noted from the biopsy site; the biopsy site at 7 o'clock was also noted to be bleeding profusely. Bovie electrocautery was used to treat each of the sites, which was successful at the 7 o'clock site but not at the 3 o'clock site. Two [id number] sutures of 2- 0 Vicryl were required to obtain hemostasis at that site. Thereafter, Monsel's solution was applied to the cervix. There was slight bleeding on the left vaginal sidewall, which appeared to be from a very shallow separation of skin; I applied Monsel's solution to this as well. The total EBL from this portion of the procedure was 50 mL. Speculum was removed and no bleeding was noted thereafter. Patient tolerated procedures well and was taken to recovery area in stable condition.
[2025-02-03] MEDS: fentaNYL 100 MCG/2 ML inj 50 MCG IVP (11:07)
[2025-02-03] MEDS: OXYCODONE 5 MG TABLET PO ×2 (11:35→13:25)
[2025-02-03] MEDS: ACETAMINOPHEN 500 MG TABLET 1000 MG PO (11:35)
== END 2025-02-03 14:58 | disposition home or self-care (01) ==
LOC: OR 05:56
PROVIDERS: PCP Nurse Practitioner Family; Visit Provider Obstetrics & Gynecology
PROC: (CPT 58661; principal; 2025-02-03 07:15)
PROC: 0UJH8ZZ Inspection of Vagina and Cul-de-sac, Via Natural or Artificial Opening Endoscopic (ICD-10-PCS; CPT 58661; 2025-02-03 07:15)
DX: Z30.2 Encounter for sterilization (principal); D27.1 Benign neoplasm of left ovary; N83.11 Corpus luteum cyst of right ovary; N87.0 Mild cervical dysplasia; R87.810 Cervical high risk human papillomavirus (HPV) DNA test positive; N83.8 Other noninflammatory disorders of ovary, fallopian tube and broad ligament
CPT/HCPCS: 58661; 58662; 57455; 00840; 36415; 81025; 82962; 86850; 86900; 86901; A9270; J0330; J0665; J1100; J1171; J1815; J1885; J2250; J2405; J2704; J2710; J3010; J7120

== ENCOUNTER 2025-02-20 12:40 | Outpatient (CLI) | payer OTHER, SELFPAY | END 2025-02-20 12:41 | disposition home or self-care (01) | PROVIDERS: PCP Nurse Practitioner Family; Visit Provider Nurse Practitioner Family | DX: R10.30 Lower abdominal pain, unspecified (principal) | CPT/HCPCS: 81001; 85025; 87086 ==

== ENCOUNTER 2025-02-25 14:25 | Outpatient (CLI) | payer OTHER, SELFPAY | END 2025-02-25 14:26 | disposition home or self-care (01) | LOC: NFLDREF 14:27 | PROVIDERS: PCP Nurse Practitioner Family; Visit Provider Obstetrics & Gynecology | DX: L65.9 Nonscarring hair loss, unspecified (principal) | CPT/HCPCS: 84443 ==

== ENCOUNTER 2025-05-14 13:52 | Outpatient (CLI) | payer OTHER, SELFPAY | END 2025-05-14 13:53 | disposition home or self-care (01) | PROVIDERS: PCP Nurse Practitioner Family; Visit Provider Nurse Practitioner Family | DX: R79.0 Abnormal level of blood mineral (principal) | CPT/HCPCS: 82728; 85025 ==